=== PATIENT | female | born 1970 | race Caucasian/White ===

== ENCOUNTER 2020-09-25 07:08 | Outpatient (REF) | payer OTHER, SELFPAY ==
[2020-09-25 11:10] LABS: MANUAL DIFF FLAG NO
[2020-09-25 11:19] LABS: Basophils Percent Auto 0.2 % (0-2); Eosinophils Absolute Auto 0.3 X10*3/uL (0.0-0.4); Eosinophils Percent Auto 3.5 % (0-4); Hematocrit 38.3 % (37-47); Hemoglobin 12.8 g/dl (12.0-16.0); Imm Gran Abs Auto 0.03 X10*3/uL (0.00-0.03); Imm Gran Pct Auto 0.4 % (0.0-0.4); Lymphocytes Absolute Auto 1.6 X10*3/uL (1.2-4.9); Mean Corpuscular HGB Conc 33.4 g/dl (31.0-35.0); Mean Corpuscular Hemoglobin 29.1 pg (27.0-33.0); Monocytes Absolute Auto 0.7 X10*3/uL (0.1-1.2); Monocytes Percent Auto 8.7 % (2-11); Neutrophils Absolute Auto 5.7 X10*3/uL (2.0-8.3); Neutrophils Percent Auto 68.2 % (45-73); Platelet Count 310 X10*3/uL (160-400); Red Cell Distribution Width 12.7 % (11.0-16.0); White Blood Count 8.3 X10*3/uL (4.8-10.8)
[2020-09-25 12:04] LABS: Ferritin 11 ng/mL (10-250); TSH reflex Free T4 1.14 uIU/mL (0.32-4.0)
[2020-09-25 12:10] LABS: Alanine Aminotransferase 12 U/L (0-31); Albumin Level 4.2 g/dL (3.5-5.0); Alkaline Phosphatase 93 U/L (39-117); Anion Gap 12 (12-20); Aspartate Amino Transferase 16 U/L (5-31); Bilirubin Direct 0.2 mg/dL (0.0-0.5); Bilirubin Total 0.7 mg/dL (0.0-1.0); Blood Urea Nitrogen 19 mg/dL (9-16); Calcium 8.8 mg/dL (8.4-10.2); Carbon Dioxide 28 mmol/L (22-29); Chloride 101 mmol/L (96-108); Cholesterol 177 mg/dL; Estimated Glomerular Filt Rate > 60; Glucose Fasting 75 mg/dL (60-99); HDL Cholesterol 45 mg/dL; LDL Cholesterol Calculated 90 mg/dl; Potassium 4.4 mmol/L (3.3-5.1); Sodium 137 mmol/L (135-145); Total Protein 6.8 g/dL (6.5-8.0); Triglycerides 211 mg/dL
[2020-09-25 12:12] LABS: Vitamin B12 445 pg/mL (200-900)
== END 2020-09-25 07:09 | disposition home or self-care (01) ==
LOC: HO.HMGCLDS 07:08
PROVIDERS: PCP Internal Medicine; Visit Provider Internal Medicine
DX: Z00.01 Encounter for general adult medical examination with abnormal findings (principal); R00.2 Palpitations; R00.0 Tachycardia, unspecified; R71.8 Other abnormality of red blood cells; R20.2 Paresthesia of skin; K21.9 Gastro-esophageal reflux disease without esophagitis; J45.909 Unspecified asthma, uncomplicated; G44.89 Other headache syndrome
CPT/HCPCS: 36415; 80048; 80061; 80076; 82607; 82728; 84443; 85025

== ENCOUNTER → 2020-10-21 13:56 | Outpatient (REF) | payer OTHER, SELFPAY ==
--- NOTE | 2020-10-21 13:59 | ECG_ITS ---
Hook-up date: 2020-10-21 14:13:00 Duration: 42:44:00 Test Indications: PALPITATIONS Medications: [id number] QRS complexes 137 Ventricular ectopics which represent <1 % of total QRS comp. 138 Supraventricular ectopics which represent <1 % of total QRS comp. * Paced QRS complexs which represent % of total QRS comp. VENTRICULAR ECTOPY 135 Isolated 0 Bigeminal Cycles 1 Couplets 0 Runs 0 Beats in Runs * Beats LONGEST at * BPM at :: -- * Beats FASTEST at * BPM at :: -- SUPRAVENTRICULAR ECTOPY 124 Isolated 3 Couplets 1 Runs 8 Beats in Runs 8 Beats LONGEST at 100 BPM at 06:44:08 2020-10-22 8 Beats FASTEST at 100 BPM at 06:44:08 2020-10-22 HEART RATES 57 MIN at 06:08:31 2020-10-22 90 AVG 138 MAX at 07:23:12 2020-10-22 LONGEST RR 1.1680 secs at 05:32:15 2020-10-22 S-T LEVELS Channel 1 - 128 mm at 14:13:00 2020-10-21 - 128 mm at 14:13:00 2020-10-21 Channel 2 - 128 mm at 14:13:00 2020-10-21 - 128 mm at 14:13:00 2020-10-21 Channel 3 - 128 mm at 03:33:21 -- - 128 mm at 03:33:21 Underlying rhythm is sinus; Average ventricular rate 90/min; range 57-138/min; About 27% of the time, ventricular rate >100/min; Occasional PACs; Occasional PVCs with one couplet; Symptoms in patient diary including shortness of breath, palpitations, associated with sinus rhythm. Referred By: Rory Nagy Overread By: YONY ALDRICH
== END ==
LOC: HO.CARD 13:56
PROVIDERS: Visit Provider Internal Medicine
DX: R00.2 Palpitations (principal); R00.0 Tachycardia, unspecified
CPT/HCPCS: 93225; 93226

== ENCOUNTER → 2020-10-26 14:38 | Outpatient (BNVA) | payer OTHER, SELFPAY | PROVIDERS: PCP Internal Medicine; Visit Provider Internal Medicine ==

== ENCOUNTER 2020-11-05 16:20 | Outpatient (REF) | payer OTHER, SELFPAY ==
--- NOTE | ~2020-11-05 | MR_ITS ---
EXAMINATION: MR CERVICAL SPINE WITHOUT CONTRAST CLINICAL INFORMATION: 50-year-old with complaints of headache and neck pain of several years' duration. Evaluate for disc herniation, spinal stenosis. COMPARISON: None TECHNIQUE: MRI of the cervical spine was obtained using routine sequences without contrast. FINDINGS: Alignment: Trace anterolisthesis noted at C3-C4 and trace retrolisthesis at C4-C5. There is 2 mm of anterolisthesis at C7-T1. Lordotic curvature is maintained. Craniocervical Junction/C1-C2 Articulations:?Intact and aligned. 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 Otherwise grossly unremarkable. Vertebral Bodies: Mild chronic superior endplate compression deformity of the T3 vertebral body is noted. Remaining vertebral body heights are well maintained. Bone Marrow: 1 cm probable benign vertebral hemangioma within the T2 vertebral body. Otherwise, no significant marrow replacing process or bone marrow edema. C2-C3: Disc space height is well maintained. Small posterior disc osteophyte complex noted without significant canal or neural foraminal compromise. There is bgqw-[id number] facet arthropathy on the left. C3-C4: Disc space height is well maintained. Slight anterolisthesis noted with mild posterior disc osteophyte complex and slight flattening of the dural sac without cord impingement. There is moderate left-sided and mild right-sided facet arthrosis without significant canal or neural foraminal stenosis. C4-C5: Mild loss of disc space height is noted with mild anterior marginal spondylosis. Small central disc protrusion with mild flattening of the central dural sac without cord impingement. Bilateral uncovertebral spurring is noted with mild bilateral facet spurring, with [id number] right-sided and mild left-sided neural foraminal stenosis. C5-C6: Disc space height is well maintained. Tiny central disc protrusion noted. Minor bilateral facet spurring noted. No significant canal or neural foraminal stenosis. C6-C7: Disc space height is mildly narrowed with minor anterior marginal endplate spurring. Mild broad-based central disc herniation noted with flattening of the central dural sac without cord impingement or significant spinal canal stenosis. There is moderate left-sided and mild right-sided facet hypertrophic change without significant canal or neural foraminal stenosis. C7-T1: Mild loss of disc space height is noted with mild anterior marginal spondylosis and mild anterolisthesis with a small central disc protrusion and mild flattening of the central dural sac without cord impingement or significant spinal canal stenosis. There is mild bilateral uncovertebral spurring without significant neural foraminal stenosis. The cervical and visualized upper thoracic spinal cord is normal in morphology, caliber and signal intensity throughout. MR/MR cervical spine wo con IMPRESSION: 1. Lordotic curvature is maintained with mild multilevel subluxations, as detailed above. 2. There is mild multilevel spondylosis and mild degrees of multilevel disc space height loss with multilevel small central disc protrusions without spinal cord impingement or significant spinal canal stenosis. 3. Multilevel uncovertebral and facet arthrosis, as described above, with [id number]-[id number] right-sided neural foraminal stenosis at C4-C5. 4. Mild, healed, chronic superior endplate compression fracture deformity of T3.
== END 2020-11-05 16:21 | disposition home or self-care (01) ==
LOC: HO.MRI 16:20
PROVIDERS: Visit Provider Psychiatry & Neurology Neurology
DX: M50.90 Cervical disc disorder, unspecified, unspecified cervical region (principal)
CPT/HCPCS: 72141

== ENCOUNTER → 2020-12-08 13:55 | Outpatient (REF) | payer OTHER, SELFPAY ==
--- NOTE | 2020-12-08 13:58 | CA_ITS ---
Transthoracic Echocardiogram Patient (Last, First, Middle): Alexandra Fam, Gender: Female Date of : 1970 Age: 50 Procedure Date: 12/08/2020 Procedure Type: Transthoracic Echocardiogram Location: OP Height: 160.02 cm Weight: 67.59 kg BSA: 1.71 m2 Heart Rate: bpm BP: 104 / 66 mmHg Meat Cooler: Newton MD: Hai Ronquillo MD Symptoms: R00.2 - Palpitations Study Quality: Good ECG Rhythm: Sinus Conclusions: - The left ventricular systolic function is normal. The visually estimated ejection fraction is between 60-65%. - No obvious valvular pathology seen on this study. Findings Left Ventricle Normal left ventricular cavity size. There is normal left ventricular wall thickness. The left ventricular systolic function is normal. The visually estimated ejection fraction is between 60-65%. There is no evidence of regional wall motion abnormalities. Diastolic function is normal for age. Right Ventricle Normal right ventricular cavity size and systolic function. Atria The left atrium is normal in size. The right atrium is normal in size. Aortic Valve The aortic valve was not well visualized. The aortic valve structure and function is likely normal. There is no aortic valve stenosis. There is no aortic valve regurgitation. Mitral Valve The mitral valve appears normal. There is trace mitral valve regurgitation. There is no mitral valve stenosis. Pulmonic Valve The pulmonic valve was not well visualized. Tricuspid Valve There is trace tricuspid valve regurgitation. The pulmonary artery systolic pressure is normal. Great Vessels The aortic annulus, sinuses of valsalva, asc aorta, and aortic arch are normal in size. Venous The inferior vena cava is normal in size and collapses greater than 50% with inspiration. Pericardium/Pleural There is no evidence of pericardial effusion. Prior Study Comparison No prior study available for comparison. Recommendations, Care & Conclusions No obvious valvular pathology seen on this study. Measurements 2D Linear Measurements RVIDd: 2.01 RVIDd Index: 1.18 IVSd: 0.65 0.6-0.9/0.6-1.0 cm LVIDd: 4.11 3.9-5.3/4.2-5.9 cm LVIDd Index: 2.40 2.4-3.2/2.2-3.1 cm/m2 LVIDs: 2.51 2.0-3.6 cm LVPWd: 0.82 0.7-1.1 cm Ao Root: 2.60 2.1-3.5 cm LA Diam: 2.70 2.7-3.8/3.0-4.0 cm LAIDs Index: 1.58 1.5-2.3 cm/m2 LV Mass: 108.00 67-162/88-224 g LV Mass Index: 63.16 43-95/49-115 g/m2 LVOT Diam: 2.00 3.0+(-)1.3 cm 2D Systolic Function EF 4C: 74.40 >55% EF 2C: 70.90 >55% EF BiP: 72.10 >55% Mitral Valve MV Pk E: 0.73 MV PK A: 0.77 MV Decel Time: 201.00 E/A: 1.00 E'Lateral: 16.10 E'Medial: 7.64 E/E' Med: 9.50 E/E' Lat: 4.50 Aortic Valve AoV Pk Bryson: 1.75 AoV Mn Bryson: 1.32 AoV VTI: 0.29 AoV Pk Grad: 12.00 Aov Mn Grad: 8.00 PB Cont.VTI: 2.27 LVOT LVOT Pk Bryson: 1.45 LVOT Mn Bryson: 0.88 LVOT VTI: 0.21 LVOT Pk Grad: 8.00 LVOT Mn Grad: 4.00 LVOT Diam: 2.00 LVOT Area: 3.14 Diastolic Function MV Pk E: 0.73 MV Pk A: 0.77 E/A: 1.00 E'Medial: 7.64 E/E' Med: 9.50 E' Laterial: 16.10 E/E' Lat: 4.50 Tricuspid Valve TR Pk Bryson: 2.38 TR Pk Grad: 23.00 RA Press: 3.00 RVSP: 26.00 Great Vessels Aorta Ao Root-2D: 2.60 2.0-3.7 cm Ao Asc: 2.70 2.1-3.4 cm Ao Arch: 2.70 Updated in Other Vendor System with Status of Final Hai Ronquillo MD electronically signed on 12/10/2020 2:23:05 PM with status of Final
== END ==
LOC: HO.CARD 13:55
PROVIDERS: Visit Provider Internal Medicine
DX: R00.2 Palpitations (principal)
CPT/HCPCS: 93306

== ENCOUNTER → 2020-12-15 14:40 | Outpatient (BNVA) | payer OTHER, SELFPAY | PROVIDERS: PCP Internal Medicine; Referring Provider Internal Medicine; Visit Provider Internal Medicine ==

== ENCOUNTER → 2021-07-05 15:07 | Outpatient (BNVA) | payer OTHER, SELFPAY | PROVIDERS: PCP Internal Medicine; Referring Provider Internal Medicine; Visit Provider Internal Medicine ==

== ENCOUNTER 2021-10-14 12:16 | Outpatient (REF) | payer OTHER, SELFPAY | END 2021-10-14 12:17 | disposition home or self-care (01) | LOC: HO.LNP 12:16 | PROVIDERS: Visit Provider Nurse Practitioner Family | DX: R30.0 Dysuria (principal) | CPT/HCPCS: 87086 ==

== ENCOUNTER 2022-01-12 07:24 | Outpatient (REF) | payer OTHER, SELFPAY ==
[2022-01-12 11:43] LABS: MANUAL DIFF FLAG NO
[2022-01-12 11:52] LABS: Basophils Percent Auto 0.5 % (0-2); Eosinophils Absolute Auto 0.4 X10*3/uL (0.0-0.4); Eosinophils Percent Auto 4.7 % (0-4); Hematocrit 38.7 % (37.0-47.0); Imm Gran Abs Auto 0.05 X10*3/uL (0.00-0.03); Imm Gran Pct Auto 0.6 % (0.0-0.4); Lymphocytes Absolute Auto 1.4 X10*3/uL (1.2-4.9); Lymphocytes Percent Auto 17.5 % (20-40); Mean Corpuscular HGB Conc 33.6 g/dl (31.0-35.0); Mean Corpuscular Hemoglobin 29.6 pg (27.0-33.0); Mean Corpuscular Volume 88.2 fL (80.0-98.0); Mean Platelet Volume 9.7 fL (9.4-12.3); Monocytes Absolute Auto 0.7 X10*3/uL (0.1-1.2); Neutrophils Absolute Auto 5.6 x10*3/uL (2.0-8.3); Neutrophils Percent Auto 67.7 % (45-73); Platelet Count 321 X10*3/uL (160-400); Red Blood Count 4.39 X10*6/uL (4.20-5.50); Red Cell Distribution Width 12.7 % (11.0-16.0); White Blood Count 8.3 X10*3/uL (4.8-10.8)
[2022-01-12 12:02] LABS: Alanine Aminotransferase 25 U/L (0-31); Albumin Level 4.3 g/dL (3.5-5.0); Alkaline Phosphatase 114 U/L (39-117); Anion Gap 12 (12-20); Aspartate Amino Transferase 24 U/L (5-31); Bilirubin Total 0.2 mg/dL (0.0-1.0); Blood Urea Nitrogen 20 mg/dL (9-16); Calcium 9.1 mg/dL (8.4-10.2); Carbon Dioxide 24 mmol/L (22-29); Chloride 105 mmol/L (96-108); Cholesterol 188 mg/dL; Estimated Glomerular Filt Rate > 60; Glucose Fasting 92 mg/dL (60-99); HDL Cholesterol 44 mg/dL; LDL Cholesterol Calculated 93 mg/dl; Potassium 4.2 mmol/L (3.3-5.1); Sodium 137 mmol/L (135-145); Total Protein 6.9 g/dL (6.5-8.0); Triglycerides 256 mg/dL
[2022-01-12 12:25] LABS: TSH reflex Free T4 1.38 uIU/mL (0.32-4.0)
== END 2022-01-12 07:25 | disposition home or self-care (01) ==
LOC: HO.HMGCLDS 07:24
PROVIDERS: PCP Internal Medicine; Visit Provider Internal Medicine
DX: J45.50 Severe persistent asthma, uncomplicated (principal); K21.9 Gastro-esophageal reflux disease without esophagitis; F41.1 Generalized anxiety disorder
CPT/HCPCS: 36415; 80053; 80061; 84443; 85025

== ENCOUNTER 2022-11-04 07:11 | Outpatient (REF) | payer OTHER, SELFPAY ==
[2022-11-04 11:40] LABS: MANUAL DIFF FLAG NO
[2022-11-04 11:57] LABS: Basophils Percent Auto 0.3 % (0-2); Eosinophils Absolute Auto 0.4 X10*3/uL (0.0-0.4); Hematocrit 38.9 % (37.0-47.0); Hemoglobin 12.5 g/dl (12.0-16.0); Imm Gran Abs Auto 0.05 X10*3/uL (0.00-0.03); Imm Gran Pct Auto 0.5 % (0.0-0.4); Lymphocytes Absolute Auto 1.7 X10*3/uL (1.2-4.9); Lymphocytes Percent Auto 17.8 % (20-40); Mean Corpuscular HGB Conc 32.1 g/dl (31.0-35.0); Mean Corpuscular Hemoglobin 27.7 pg (27.0-33.0); Mean Corpuscular Volume 86.1 fL (80.0-98.0); Monocytes Absolute Auto 0.9 X10*3/uL (0.1-1.2); Monocytes Percent Auto 8.9 % (2-11); Neutrophils Absolute Auto 6.6 x10*3/uL (2.0-8.3); Neutrophils Percent Auto 68.5 % (45-73); Platelet Count 338 X10*3/uL (160-400); Red Blood Count 4.52 X10*6/uL (4.20-5.50); White Blood Count 9.7 X10*3/uL (4.8-10.8)
[2022-11-04 12:34] LABS: Alanine Aminotransferase 19 U/L (0-31); Albumin Level 4.2 g/dL (3.5-5.0); Alkaline Phosphatase 115 U/L (39-117); Anion Gap 10 (12-20); Aspartate Amino Transferase 23 U/L (5-31); Bilirubin Total 0.4 mg/dL (0.0-1.0); Blood Urea Nitrogen 14 mg/dL (9-16); Calcium 8.8 mg/dL (8.4-10.2); Carbon Dioxide 26 mmol/L (22-29); Chloride 105 mmol/L (96-108); Cholesterol 175 mg/dL; Estimated Glomerular Filt Rate > 60; Glucose Fasting 79 mg/dL (60-99); HDL Cholesterol 41 mg/dL; LDL Cholesterol Calculated 66 mg/dl; Potassium 4.2 mmol/L (3.3-5.1); Sodium 137 mmol/L (135-145); Total Protein 6.7 g/dL (6.5-8.0); Triglycerides 344 mg/dL
== END 2022-11-04 07:12 | disposition home or self-care (01) ==
LOC: HO.HMGCLDS 07:11
PROVIDERS: PCP Internal Medicine; Visit Provider Internal Medicine
DX: Z00.01 Encounter for general adult medical examination with abnormal findings (principal); F41.1 Generalized anxiety disorder; G44.89 Other headache syndrome; J45.40 Moderate persistent asthma, uncomplicated; K21.9 Gastro-esophageal reflux disease without esophagitis; E75.6 Lipid storage disorder, unspecified
CPT/HCPCS: 36415; 80053; 80061; 84443; 85025

== ENCOUNTER 2023-03-29 15:25 | Outpatient (AMB) | payer OTHER, SELFPAY ==
[2023-03-29 15:30] VITALS: BP 118/70; PULSE 78; O2SAT 98; BMI 28.2
--- NOTE | 2023-03-29 15:30 | MHC.PC.OV ---
Vital Signs 03/29/23 15:30 Height 5 ft 3 in Weight 159 lb 6 oz BMI 28.2 BP 118/70 Blood Pressure Location Rt brachial Position Sitting Pulse 78 Pulse Source Pulse Oximeter Pulse Oximetry (%) 98 Oxygen Delivery Method Room Air Intake Visit Reasons: 6m follow up Allergies cephalexin Adverse Reaction (Mild, Verified 03/29/23 15:30) Hives Medication List - Last Reconciled 03/29/23 by Rory Nagy MD albuterol sulfate 90 mcg/actuation 2 puffs PO Q4H PRN 90 days amitriptyline 50 mg PO BEDTIME ascorbic acid (vitamin C) PO DAILY clotrimazole-betamethasone 1-0.05 % 1 appl topical BID 30 days fluoxetine 40 mg (2 x 20 mg) PO DAILY 90 days fluticasone propion-salmeterol 250-50 mcg/dose (Wixela Inhub) 1 ea PO BID omeprazole 20 mg PO DAILY 90 days topiramate 50 mg PO BEDTIME Tobacco use date assessed: 03/29/23 Dental Screening Dental Screen Date: 03/29/23 Did you have a dental visit in the last 12 months?: No Did you have a dental problem in the last 6 months where you did not have access to dental care?: No Was dental information given to patient?: No HPI 6m follow up HPI Details Patient is a 52-year-old female came in today for her six-month follow-up appointment Patient says that her asthma is acting up she is requesting albuterol for updraft machine which I have sent she is taking maintenance inhaler regularly. Her reflux is also getting worse patient says that she tried to get off all her medications and did not do very well Even though she is on omeprazole she still feels acid come up. I feel that her asthma could be because of uncontrolled GERD I have placed a referral for her to be evaluated by Gastroenterology. She tried to stop fluoxetine Topamax and amitriptyline 1 x 1 and then her itching both arms came back. Which is more so due to anxiety. She has restarted the amitriptyline and Topamax her headaches are stable Fluoxetine 20 mg started as well her itching is gradually getting better. Patient will return in 3 months for follow-up appointment [facility] Surgical History History of bunionectomy History of section History of tonsillectomy Family History Father Colon cancer Mother Lung cancer Brother No problems noted. Brother No problems noted. Son No problems noted. Daughter No problems noted. Daughter No problems noted. Daughter No problems noted. Other Mental health disorder Substance use disorder Social History Housing: House Alcohol intake: current Alcohol intake frequency: a few times a month Patient Tobacco Use Status: Never used Tobacco e-Cigarette/Vaping Use: Never Used Current occupational status: employed Cognitive needs: No Hearing needs: No Vision needs: Yes Questionnaire PHQ-9 Over the last 2 weeks, how often have you been bothered by any of the following problems? 1. Little interest or pleasure in doing things: several days 2. Feeling down, depressed, or hopeless: not at all 3. Trouble falling or staying asleep, or sleeping too much: several days 4. Feeling tired or having little energy: several days 5. Poor appetite or overeating: more than half the days 6. Feeling bad about yourself - or that you are a failure or have let yourself or your family down: more than half the days 7. Trouble concentrating on things, such as reading the newspaper or watching television: not at all 8. Moving or speaking so slowly that other people could have noticed. Or the opposite - being so fidgety or restless that you have been moving around a lot more than usual: not at all 9. Thoughts that you would be better off or of hurting yourself in some way: not at all Total score: 7 Depression Screening Interpretation: Negative 17387 - PHQ-9 Billing: Yes Source: Developed by Drs. Roberto Dennis, India Bhatt, Vikash Hoffman and colleagues, with an educational aleja from [employer]. Thrive Questionnaire Date Thrive assessed: 01/19/22 AUDIT C Alcohol Use Questionnaire (AUDIT-C) 1. How often do you have a drink containing alcohol?: Monthly or less 2. How many drinks containing alcohol do you have on a typical day when you are drinking?: 1 or 2 3. How often do you have six or more drinks on one occasion?: Never Total Score: 1 Score Reviewed/Action Taken: Yes LESLY-7 AMB Questionnaire LESLY-7 Date LESLY - 7 assessed: 07/14/21 Source: Developed by Drs. Roberto Dennis, India Bhatt, Vikash Hoffman and colleagues, with an educational aleja from [employer]. Review of Systems Const Denies chills and Denies fever(s) ENT Denies epistaxis and Denies nasal discharge Card Denies chest pain Resp Denies hemoptysis GI Denies diarrhea and Denies nausea Skin/Breast Denies rash Neuro Reports no additional complaints Psych Reports no additional complaints Endo Reports no additional complaints Physical exam (Primary Care) Vital Signs: Last Vital Signs Pulse 78 03/29/23 15:30 BP 118/70 03/29/23 15:30 Pulse Ox 98 03/29/23 15:30 Oxygen Delivery Method Room Air 03/29/23 15:30 BMI result Body Mass Index 28.2 Tobacco/Smoking Status: Tobacco use Status Tobacco use date assessed 03/29/23 03/29/23 15:32 Patient Tobacco Use Status Never used Tobacco 03/29/23 15:32 e-Cigarette/Vaping Use Never Used 03/29/23 15:32 Depression Screening Interpretation: Negative Thrive Assessment: Date of Thrive Assessment Date Thrive assessed 01/19/22 03/29/23 15:32 Const General: cooperative, comfortable and no acute distress Orientation/consciousness: patient oriented x3 HENMT Head: Yes normocephalic Eyes General: appearance normal, both eyes and all related structures Neck Neck: Yes supple Resp Effort & Inspection: normal respiratory effort, no cough and no stridor Cardio Rhythm: regular rhythm Heart sounds: S1 normal heart sound present and S2 normal heart sound present Skin General skin exam: turgor normal Neuro General: patient oriented x3, tone normal and moves all extremities Extrem Right lower extremity: no edema Left lower extremity: no edema Assessment and Plan Assessment & Plan (1) Asthma, moderate persistent: Code(s): J45.40 - Moderate persistent asthma, uncomplicated Qualifiers: Asthma complication type: with status asthmaticus Qualified Code(s): J45.42 - Moderate persistent asthma with status asthmaticus (2) Chronic GERD: Code(s): K21.9 - Gastro-esophageal reflux disease without esophagitis (3) Headache syndrome: Code(s): G44.89 - Other headache syndrome (4) Anxiety, generalized: Code(s): F41.1 - Generalized anxiety disorder (5) Itching: Code(s): L29.9 - Pruritus, unspecified Plan Patient is a 52-year-old female came in today for her six-month follow-up appointment Patient says that her asthma is acting up she is requesting albuterol for updraft machine which I have sent she is taking maintenance inhaler regularly. Her reflux is also getting worse patient says that she tried to get off all her medications and did not do very well Even though she is on omeprazole she still feels acid come up. I feel that her asthma could be because of uncontrolled GERD I have placed a referral for her to be evaluated by Gastroenterology. She tried to stop fluoxetine Topamax and amitriptyline 1 x 1 and then her itching both arms came back. Which is more so due to anxiety. She has restarted the amitriptyline and Topamax her headaches are stable Fluoxetine 20 mg started as well her itching is gradually getting better. Patient will return in 3 months for follow-up appointment Orders: Referrals Gastroenterology Referral K21.9 - Gastro-esophageal reflux disease without esophagitis Medications: New albuterol sulfate 0.63 mg (3 mL) inhalation QID PRN 90 mL 0RF shortness of breath or wheezing Coding Level of Care Code Est Pt Level 4 (18952) Diagnoses Asthma, moderate persistent J45.42 Asthma complication type: with status asthmaticus Chronic GERD K21.9 Headache syndrome G44.89 Anxiety, generalized F41.1 Itching L29.9
== END 2023-03-29 15:53 | disposition home or self-care (01) ==
PROVIDERS: Visit Provider Internal Medicine
DX: J45.42 Moderate persistent asthma with status asthmaticus (principal); K21.9 Gastro-esophageal reflux disease without esophagitis; G44.89 Other headache syndrome; F41.1 Generalized anxiety disorder; L29.9 Pruritus, unspecified
CPT/HCPCS: 99214

== ENCOUNTER 2023-04-11 12:21 | Outpatient (AMB) | payer OTHER, SELFPAY ==
[2023-04-11 12:26] VITALS: BP 112/70; PULSE 93; O2SAT 97; BMI 28.0
--- NOTE | 2023-04-11 12:26 | MHC.PC.OV ---
Vital Signs 04/11/23 12:26 Height 5 ft 3 in Weight 158 lb 4 oz BMI 28.0 BP 112/70 Blood Pressure Location Rt brachial Position Sitting Pulse 93 Pulse Source Pulse Oximeter Pulse Oximetry (%) 97 Oxygen Delivery Method Room Air Intake Visit Reasons: Possible UTI? Allergies cephalexin Adverse Reaction (Mild, Verified 04/11/23 12:26) Hives Medication List - Last Reconciled 04/11/23 by Rory Nagy MD albuterol sulfate 0.63 mg (3 mL) inhalation QID PRN albuterol sulfate 90 mcg/actuation 2 puffs PO Q4H PRN 90 days amitriptyline 50 mg PO BEDTIME ascorbic acid (vitamin C) PO DAILY clotrimazole-betamethasone 1-0.05 % 1 appl topical BID 30 days fluoxetine 40 mg (2 x 20 mg) PO DAILY 90 days fluticasone propion-salmeterol 250-50 mcg/dose (Wixela Inhub) 1 ea PO BID omeprazole 20 mg PO DAILY 90 days topiramate 50 mg PO BEDTIME Tobacco use date assessed: 04/11/23 Dental Screening Dental Screen Date: 04/11/23 Did you have a dental visit in the last 12 months?: No Did you have a dental problem in the last 6 months where you did not have access to dental care?: No Was dental information given to patient?: No HPI Possible UTI? HPI Details Patient is a 53-year-old female came in today to be evaluated for urinary tract infection Patient says that the symptoms started after sexual intercourse 2 days ago She says that it bones every time she urinate. On urinalysis today I do not see signs of infection We talked about urethritis could be the possibility of burning sensation that she is feeling However I have sent Macrobid for her patient is to drink plenty of water We also talked about emptying the bladder before and after the intercourse and using water to clean herself after. [facility] Surgical History History of bunionectomy History of section History of tonsillectomy Family History Father Colon cancer Mother Lung cancer Brother No problems noted. Brother No problems noted. Son No problems noted. Daughter No problems noted. Daughter No problems noted. Daughter No problems noted. Other Mental health disorder Substance use disorder Social History Housing: House Alcohol intake: current Alcohol intake frequency: a few times a month Patient Tobacco Use Status: Never used Tobacco e-Cigarette/Vaping Use: Never Used Current occupational status: employed Cognitive needs: No Hearing needs: No Vision needs: Yes Questionnaire PHQ-9 Over the last 2 weeks, how often have you been bothered by any of the following problems? 1. Little interest or pleasure in doing things: several days 2. Feeling down, depressed, or hopeless: not at all 3. Trouble falling or staying asleep, or sleeping too much: several days 4. Feeling tired or having little energy: several days 5. Poor appetite or overeating: more than half the days 6. Feeling bad about yourself - or that you are a failure or have let yourself or your family down: more than half the days 7. Trouble concentrating on things, such as reading the newspaper or watching television: not at all 8. Moving or speaking so slowly that other people could have noticed. Or the opposite - being so fidgety or restless that you have been moving around a lot more than usual: not at all 9. Thoughts that you would be better off or of hurting yourself in some way: not at all Total score: 7 Depression Screening Interpretation: Negative 44278 - PHQ-9 Billing: Yes Source: Developed by Drs. Roberto Dennis, Vikash Lerma and colleagues, with an educational aleja from [employer]. Thrive Questionnaire Date Thrive assessed: 01/19/22 AUDIT C Alcohol Use Questionnaire (AUDIT-C) 1. How often do you have a drink containing alcohol?: Monthly or less 2. How many drinks containing alcohol do you have on a typical day when you are drinking?: 1 or 2 3. How often do you have six or more drinks on one occasion?: Never Total Score: 1 Score Reviewed/Action Taken: Yes LESLY-7 AMB Questionnaire LESLY-7 Date LESLY - 7 assessed: 07/14/21 Source: Developed by Drs. Roebrto Dennis, Vikash Lerma and colleagues, with an educational aleja from [employer]. Review of Systems Const All systems reviewed & are unremarkable except as noted in HPI and below Physical exam (Primary Care) Vital Signs: Last Vital Signs Pulse 93 04/11/23 12:26 BP 112/70 04/11/23 12:26 Pulse Ox 97 04/11/23 12:26 Oxygen Delivery Method Room Air 04/11/23 12:26 BMI result Body Mass Index 28.0 Tobacco/Smoking Status: Tobacco use Status Tobacco use date assessed 04/11/23 04/11/23 12:29 Patient Tobacco Use Status Never used Tobacco 04/11/23 12:29 e-Cigarette/Vaping Use Never Used 04/11/23 12:29 Depression Screening Interpretation: Negative Thrive Assessment: Date of Thrive Assessment Date Thrive assessed 01/19/22 04/11/23 12:29 Const General: no acute distress HENMT Ears: mastoids normal General nose exam: Normal external nose present Throat: Yes posterior oropharynx abnormal Neck Neck: Yes no lymphadenopathy Resp Effort & Inspection: normal respiratory effort Auscultation: clear to auscultation bilaterally Psych Mental Status: mental status grossly normal Results AMB Urinalysis, Automated UA Leukoctes 0 Dulce/uL Last Edit by Larissa Zarate CMA on 04/11/23 12:39 UA Nitrite Negative Last Edit by Larissa Zarate CMA on 04/11/23 12:39 UA Urobilinogen 0.2 mg/dL Last Edit by Larissa Zarate CMA on 04/11/23 12:39 UA Protein 0 mg/dL Last Edit by Larissa Zarate CMA on 04/11/23 12:39 UA pH 6.0 Last Edit by Larissa Zarate CMA on 04/11/23 12:39 UA Blood 0 Drew/uL Last Edit by Larissa Zarate CMA on 04/11/23 12:39 UA Specific [place] 1.015 Last Edit by Larissa Zarate CMA on 04/11/23 12:39 UA Ketone Negative Last Edit by Larissa Zarate CMA on 04/11/23 12:39 UA Bilirubin 0 mg/dL Last Edit by Larissa Zarate CMA on 04/11/23 12:39 UA Glucose 0 mg/dL Last Edit by Larissa Zarate CMA on 04/11/23 12:39 Results Reviewed Results Reviewed: Laboratory Last Values Urine pH (Auto) 6.0 04/11/23 12:38 Specific [place] (Auto) 1.015 04/11/23 12:38 Urine Protein (Auto) 0 mg/dL 04/11/23 12:38 Glucose (UA)(Auto) 0 mg/dL 04/11/23 12:38 Urine Ketones (Auto) Negative 04/11/23 12:38 Urine Blood (Auto) 0 Drew/uL 04/11/23 12:38 Urine Nitrite (Auto) Negative 04/11/23 12:38 Urine Bilirubin (Auto) 0 mg/dL 04/11/23 12:38 Urine Urobilinogen (Auto) 0.2 mg/dL 04/11/23 12:38 Leukocyte Esterase (Auto) 0 Dulce/uL 04/11/23 12:38 Assessment and Plan Assessment & Plan (1) Dysuria: Code(s): R30.0 - Dysuria (2) Frequency of urination: Code(s): R35.0 - Frequency of micturition Plan Patient is a 53-year-old female came in today to be evaluated for urinary tract infection Patient says that the symptoms started after sexual intercourse 2 days ago She says that it bones every time she urinate. On urinalysis today I do not see signs of infection We talked about urethritis could be the possibility of burning sensation that she is feeling However I have sent Macrobid for her patient is to drink plenty of water We also talked about emptying the bladder before and after the intercourse and using water to clean herself after. Orders: Orders AMB Urinalysis Automated Today Z13.9 - Encounter for screening, unspecified Medications: New nitrofurantoin monohyd/m-cryst 100 mg (Macrobid) must administer with a meal/food 100 mg PO Q12H 10 caps 0RF 5 days Coding Level of Care Code Est Pt Level 3 (10621) Diagnoses Dysuria R30.0 Frequency of urination R35.0
== END 2023-04-11 12:57 | disposition home or self-care (01) ==
PROVIDERS: PCP Internal Medicine; Visit Provider Internal Medicine
DX: R30.0 Dysuria (principal); R35.0 Frequency of micturition
CPT/HCPCS: 81003; 99213

== ENCOUNTER 2023-06-02 14:46 | Outpatient (AMB) | payer OTHER, SELFPAY ==
--- NOTE | 2023-06-02 14:48 | A.OFFVIS_ITS ---
Intake Vital Signs 3 06/02/23 14:53 Height 5 ft 3 in Weight 156 lb 15.506 oz BMI 27.8 BP 134/76 Blood Pressure Location Lt brachial Position Sitting Pulse 93 Intake Visit Reasons: esophageal reflux disease without esophagitis Intake Note: Patient presents to in office visit today as a new patient for GERD. CC:Patient c/o trouble breathing she believes are associated to acid reflux, and constipation. Denies other GI symptom today. 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 Accompanied by: Self / Same As Patient Allergies cephalexin Adverse Reaction (Mild, Verified 04/11/23 12:26) Hives Medication List - Last Reconciled 06/02/23 by ALLEN Rondon albuterol sulfate 0.63 mg (3 mL) inhalation QID PRN albuterol sulfate 90 mcg/actuation 2 puffs PO Q4H PRN 90 days [align PO DAILY] amitriptyline 50 mg PO BEDTIME ascorbic acid (vitamin C) 1 tab PO DAILY fluoxetine 20 mg PO DAILY fluticasone propion-salmeterol 250-50 mcg/dose (Wixela Inhub) 1 ea PO BID omeprazole 20 mg PO DAILY 90 days polyethylene glycol 3350 (Miralax) 17 grams PO DAILY simethicone (Gas Relief (simethicone)) 180 mg PO BID PRN topiramate 50 mg PO BEDTIME HPI esophageal reflux disease without esophagitis 2 HPI0 Details 53-year-old female here for initial eval uation of GERD. She is referred by Rory Nagy the of [facility] [place] primary care. PMX Asthma Eczema Palpitations/tachycardia Anxiety Paresthesias GERD * SURGICAL HISTORY Bunionectomy Tonsillectomy section Abdominoplasty * ALLERGIES Cephalexin * [employer] LABS: Laboratory Tests 11/04/22 07:13 WBC 9.7 Hgb 12.5 Hct 38.9 Plt Count 338 Estimated GFR > 60 Total Bilirubin 0.4 AST 23 ALT 19 Alkaline Phosphata se 115 TSH 1.60 TODAY'S VISIT She has had HB for a couple of years. Now she has been having acid brash that comes up in my mouth. She feels that her HB is well controlled on her current omeprazole 20mg, but if she misses a dose. BUT the acid brash happens a lot when she is moving around, she does not know if this worsens at night because she sleeps setting up on 4 pillows. She fears laying down because she feels pressure going up my chest. She also will have the regurg when she bends forward. No testing performed for this so far. There was some concern that her respiratory issues may be related to GERD. She has a lot of CIC and has been taking Align and fiber supplements. She also uses a gas pill. BUT she was under the impression that the Align was a stool softener and a digestive aid....but she shows me the box and it is just a probiotic supplement. THEN she remembers that she has been using Miralax as well. No similar problems in her family. She has been gaining weight recently. She used to be 110 but now is 156 since age 45. NO dysphagia. Discomfort in the epigastrum. Her mother had her GB out. No nausea. Again EGD along with an ultrasound a barium swallow see if there is any pathophysiologic abnormalities at play here. However she has gained over 40 lb in the last 8 years or so and this along with genetics may be contributing to her problem. There are no prior problems with anesthesia or sedation. Her asthma is a work in progress and she denies any cardiac problems. There are no infectious disease problems. ROV 8 weeks. [facility] Surgical History History of bunionectomy History of section History of tonsillectomy Family History Father Colon cancer Mother Lung cancer Brother No problems noted. Brother No problems noted. Son No problems noted. Daughter No problems noted. Daughter No problems noted. Daughter No problems noted. Other Mental health disorder Substance use disorder Social History Housing: House Alcohol intake: current Alcohol intake frequency: a few times a month Patient Tobacco Use Status: Never used Tobacco e-Cigarette/Vaping Use: Never Used Current occupational status: employed Cognitive needs: No Hearing needs: No Vision needs: Yes Review of Systems Const Denies fatigue, Denies fever(s), Denies night sweats, Denies poor appetite, Reports weight gain and Denies weight loss ENT Reports Normal hearing present, Denies dental pain, Denies dysphagia, Denies hearing loss, Denies mouth pain, Denies odynophagia, Denies throat swelling, Denies tongue swelling and Reports other (Dentition adequate) Card Reports chest pain and Reports dyspnea Resp Reports dyspnea and Reports wheezing GI Details: Spontaneous acid brash or Denies abdominal pain, Denies melena, Reports bloating, Denies hematochezia, Reports constipation, Denies GI cramping, Denies dysphagia, Denies excessive flatus, Denies early satiety, Reports heartburn, Denies diarrhea, Denies nausea, Denies odynophagia, Denies vomiting and Denies hematemesis Skin/Breast Denies pruritus, Denies lesions, Denies rash and Denies jaundice Neuro Reports Normal hearing present, Denies Abnormal speech present and Reports paresthesias (In hands/fingers overnight with) Endo Denies fatigue Aller/Immun Denies throat swelling, Denies tongue swelling and Reports wheezing Physical Exam Vital Signs: BMI result Body Mass Index 27.8 Const General: cooperative, no acute distress, well developed and well groomed Nutritional Appearance: average body habitus and well nourished Orientation/consciousness: oriented to person, oriented to place and oriented to time Limitations: No language barrier HEENT Head: Yes normocephalic and Yes atraumatic Eyes General: appearance normal, both eyes and all related structures Pupils: Equal, round and reactive pupils present Neck Neck: Yes normal visual inspection and Yes no lymphadenopathy Thyroid: Thyroid normal Resp Effort & Inspection: normal respiratory effort and able to speak in complete sentences Auscultation: clear to auscultation bilaterally Cardio Rate: regular rate Rhythm: regular rhythm Heart sounds: Normal, physiologic split S2 sound present Peripheral pulses: radial pulses present and posterior tibial pulses present GI Inspection: No distended and No Abdominal panniculus present Palpation (GI): Soft to palpation, nontender, no guarding, not rigid and No hepatosplenomegaly present Percussion: Yes normal to percussion Auscultation: normal bowel sounds Rectal Exam - Female: deferred Abdomen image: 2 1. abdominoplasty scar 2. c sections Skin General skin exam: no rashes or lesions noted, turgor normal, skin not dry, no jaundice, No spider nevi and no striae Rashes: no rashes Nails: normal Neuro General: oriented to person, oriented to place and oriented to time Cranial nerves: Yes Equal, round and reactive pupils present and Yes Normal hearing present Speech: No Abnormal speech present Extrem General: Yes normal to inspection, No clubbing, No cyanosis and No edema Psych Appearance: grossly normal and well kempt Mental Status: mental status grossly normal Speech and movement: Normal speech and movement present Affect: normal affect Attitude: cooperative Thought process: Normal thought process present and not confabulating Thought content: Normal thought content present Insight: Limited insight present (Psych) Judgement: Limited judgement present (Psych) Assessment & Plan Assessment & Plan (1) Chronic GERD: Code(s): K21.9 - Gastro-esophageal reflux disease without esophagitis Plan: She has had HB for a couple of years. Now she has been having acid brash that comes up in my mouth. She feels that her HB is well controlled on her current omeprazole 20mg, but if she misses a dose. BUT the acid brash happens a lot when she is moving around, she does not know if this worsens at night because she sleeps setting up on 4 pillows. She fears laying down because she feels pressure going up my chest. She also will have the regurg when she bends forward. No testing performed for this so far. There was some concern that her respiratory issues may be related to GERD. She has a lot of CIC and has been taking Align and fiber supplements. She also uses a gas pill. BUT she was under the impression that the Align was a stool softener and a digestive aid....but she shows me the box and it is just a probiotic supplement. THEN she remembers that she has been using Miralax as well. No similar problems in her family. She has been gaining weight recently. She used to be 110 but now is 156 since age 45. NO dysphagia. Discomfort in the epigastrum. Her mother had her GB out. No nausea. Again EGD along with an ultrasound a barium swallow see if there is any pathophysiologic abnormalities at play here. However she has gained over 40 lb in the last 8 years or so and this along with genetics may be contributing to her problem. There are no prior problems with anesthesia or sedation. Her asthma is a work in progress and she denies any cardiac problems. There are no infectious disease problems. ROV 8 weeks. (2) H/O colonoscopy: Code(s): Z98.890 - Other specified postprocedural states Orders: Orders 2 FL barium swallow Today K21.9 - Gastro-esophageal reflux disease without esophagitis EGD with Mitchell - GI Use Only Today K21.9 - Gastro-esophageal reflux disease without esophagitis US abdomen complete Today K21.9 - Gastro-esophageal reflux disease without esophagitis Coding Level of Care Code New Pt Level 3 (63904) Diagnoses Chronic GERD K21.9 H/O colonoscopy Z98.890
[2023-06-02 14:53] VITALS: BP 134/76; PULSE 93; BMI 27.8
== END 2023-06-02 15:28 | disposition home or self-care (01) ==
PROVIDERS: PCP Internal Medicine; Visit Provider Nurse Practitioner
DX: K21.9 Gastro-esophageal reflux disease without esophagitis (principal); Z98.890 Other specified postprocedural states
CPT/HCPCS: 99203

== ENCOUNTER → 2023-06-02 14:46 | Outpatient (BNVA) | payer OTHER, SELFPAY | PROVIDERS: PCP Internal Medicine; Visit Provider Nurse Practitioner ==

== ENCOUNTER 2023-06-28 14:06 | Outpatient (AMB) | payer OTHER, SELFPAY ==
--- NOTE | 2023-06-28 14:07 | MHC.PC.OV ---
Vital Signs 06/28/23 14:11 Height 5 ft 3 in Weight 162 lb 8 oz BMI 28.8 BP 130/64 Blood Pressure Location Rt brachial Position Sitting Pulse 101 H Pulse Source Pulse Oximeter Pulse Oximetry (%) 98 Oxygen Delivery Method Room Air Intake Visit Reasons: 3m follow up Allergies cephalexin Adverse Reaction (Mild, Verified 06/28/23 14:07) Hives Medication List - Last Reconciled 06/28/23 by Rory Nagy MD albuterol sulfate 0.63 mg (3 mL) inhalation QID PRN albuterol sulfate 90 mcg/actuation 2 puffs PO Q4H PRN 90 days [align PO DAILY] amitriptyline 50 mg PO BEDTIME ascorbic acid (vitamin C) 1 tab PO DAILY fluoxetine 20 mg PO DAILY fluticasone propion-salmeterol 250-50 mcg/dose (Wixela Inhub) 1 ea PO BID omeprazole 20 mg PO DAILY 90 days polyethylene glycol 3350 (Miralax) 17 grams PO DAILY simethicone (Gas Relief (simethicone)) 180 mg PO BID PRN topiramate 50 mg PO BEDTIME Tobacco use date assessed: 06/28/23 Dental Screening Dental Screen Date: 06/28/23 Did you have a dental visit in the last 12 months?: Yes Did you have a dental problem in the last 6 months where you did not have access to dental care?: No Was dental information given to patient?: Patient has dentist HPI 3m follow up HPI Details It is a 53-year-old female came in today for her regular follow-up appointment Anxiety is stable, patient is taking fluoxetine regularly 20 mg Her anxiety sometimes present as itching, patient has tried to stop fluoxetine but then her itching got worse She also take Topamax 50 mg along with amitriptyline 50 mg at bedtime For headache prevention and it also helps her sleep. Patient has seen gastroenterology and she is scheduled to have EGD As her GERD symptoms were not responding to medication Patient have appointment for physical exam in October Surgical History History of bunionectomy History of tonsillectomy History of section Family History Father Colon cancer Mother Lung cancer Brother No problems noted. Brother No problems noted. Son No problems noted. Daughter No problems noted. Daughter No problems noted. Daughter No problems noted. Other Mental health disorder Substance use disorder Housing: House Alcohol intake: current Alcohol intake frequency: a few times a month Patient Tobacco Use Status: Never used Tobacco e-Cigarette/Vaping Use: Never Used Current occupational status: employed Cognitive needs: No Hearing needs: No Vision needs: Yes Questionnaire Thrive Questionnaire Date Thrive assessed: 01/19/22 AUDIT C Alcohol Use Questionnaire (AUDIT-C) 1. How often do you have a drink containing alcohol?: Monthly or less 2. How many drinks containing alcohol do you have on a typical day when you are drinking?: 1 or 2 3. How often do you have six or more drinks on one occasion?: Never Total Score: 1 Score Reviewed/Action Taken: Yes LESLY-7 AMB Questionnaire LESLY-7 Date LESLY - 7 assessed: 07/14/21 Source: Developed by Drs. Roberto Dennis, India Bhatt, Vikash Hoffman and colleagues, with an educational aleja from [employer]. Review of Systems Const Denies chills and Denies fever(s) ENT Denies epistaxis and Denies nasal discharge Card Denies chest pain Resp Denies chest congestion, Denies cough and Denies hemoptysis GI Denies diarrhea Skin/Breast Denies rash Neuro Reports no additional complaints Psych Reports no additional complaints Endo Reports no additional complaints Physical exam (Primary Care) Vital Signs: Last Vital Signs Pulse 101 H 06/28/23 14:11 BP 130/64 06/28/23 14:11 Pulse Ox 98 06/28/23 14:11 Oxygen Delivery Method Room Air 06/28/23 14:11 BMI result Body Mass Index 28.8 Tobacco/Smoking Status: Tobacco use Status Tobacco use date assessed 06/28/23 06/28/23 14:09 Patient Tobacco Use Status Never used Tobacco 06/28/23 14:09 e-Cigarette/Vaping Use Never Used 06/28/23 14:09 Thrive Assessment: Date of Thrive Assessment Date Thrive assessed 01/19/22 06/28/23 14:09 Const General: cooperative, comfortable and no acute distress Orientation/consciousness: patient oriented x3 HENMT Head: Yes normocephalic Eyes General: appearance normal, both eyes and all related structures Neck Neck: Yes supple Resp Effort & Inspection: normal respiratory effort, no cough and no stridor Cardio Rhythm: regular rhythm Heart sounds: S1 normal heart sound present and S2 normal heart sound present Skin General skin exam: turgor normal Neuro General: patient oriented x3, tone normal and moves all extremities Extrem Right lower extremity: no edema Left lower extremity: no edema Assessment and Plan Assessment & Plan (1) Asthma, moderate persistent: Code(s): J45.40 - Moderate persistent asthma, uncomplicated Qualifiers: Asthma complication type: with status asthmaticus Qualified Code(s): J45.42 - Moderate persistent asthma with status asthmaticus (2) Chronic GERD: Code(s): K21.9 - Gastro-esophageal reflux disease without esophagitis (3) Mood disorder: Code(s): F39 - Unspecified mood [affective] disorder (4) Headache syndrome: Code(s): G44.89 - Other headache syndrome (5) Anxiety, generalized: Code(s): F41.1 - Generalized anxiety disorder (6) Itching: Code(s): L29.9 - Pruritus, unspecified Plan It is a 53-year-old female came in today for her regular follow-up appointment Anxiety is stable, patient is taking fluoxetine regularly 20 mg Her anxiety sometimes present as itching, patient has tried to stop fluoxetine but then her itching got worse She also take Topamax 50 mg along with amitriptyline 50 mg at bedtime For headache prevention and it also helps her sleep. Patient has seen gastroenterology and she is scheduled to have EGD As her GERD symptoms were not responding to medication Patient have appointment for physical exam in October Medications: New fluoxetine 20 mg PO DAILY 90 caps 0RF Refilled topiramate 50 mg PO BEDTIME 90 tabs 1RF fluticasone propion-salmeterol 250-50 mcg/dose (Wixela Inhub) 1 ea PO BID 180 caps 3RF amitriptyline 50 mg PO BEDTIME 90 tabs 0RF albuterol sulfate 90 mcg/actuation 2 puffs PO Q4H PRN 25.5 grams 2RF bronchospasm 90 days albuterol sulfate 0.63 mg (3 mL) inhalation QID PRN 90 mL 0RF shortness of breath or wheezing Coding Level of Care Code Est Pt Level 4 (39476) Diagnoses Moderate persistent asthma with status asthmaticus J45.42 Asthma complication type: with status asthmaticus Chronic GERD K21.9 Mood disorder F39 Headache syndrome G44.89 Anxiety, generalized F41.1 Itching L29.9
[2023-06-28 14:11] VITALS: BP 130/64; PULSE 101; O2SAT 98; BMI 28.8
== END 2023-06-28 15:07 | disposition home or self-care (01) ==
PROVIDERS: PCP Internal Medicine; Visit Provider Internal Medicine
DX: J45.42 Moderate persistent asthma with status asthmaticus (principal); K21.9 Gastro-esophageal reflux disease without esophagitis; F39 Unspecified mood [affective] disorder; G44.89 Other headache syndrome; F41.1 Generalized anxiety disorder; L29.9 Pruritus, unspecified
CPT/HCPCS: 99214

== ENCOUNTER 2023-07-04 08:51 | Outpatient (REF) | payer OTHER, SELFPAY ==
--- NOTE | ~2023-07-04 | US_ITS ---
EXAMINATION: US ABDOMEN COMPLETE CLINICAL INFORMATION: Gastroesophageal reflux disease without esophagitis. COMPARISON: None available. TECHNIQUE: Real-time imaging of the abdominal viscera. FINDINGS: PANCREAS: Tail obscured. ABDOMINAL AORTA: The proximal, mid, and distal segments are normal in caliber. INFERIOR VENA CAVA: Visualized portions are normal. LIVER: The liver is normal in size. The liver contour is normal. There is diffuse increased liver parenchymal echogenicity, consistent with hepatic steatosis. No focal hepatic lesion. There is no intrahepatic biliary duct dilatation seen. GALLBLADDER: The gallbladder is physiologically distended without evidence of stones, sludge, polyps, wall thickening or pericholecystic fluid. COMMON BILE DUCT: Normal in caliber measuring 0.4 cm in diameter. RIGHT KIDNEY: No hydronephrosis. No renal calculi or focal parenchymal lesions. The kidney measures 10.7 cm in maximum dimension. LEFT KIDNEY: No hydronephrosis. No renal calculi or focal parenchymal lesions. The kidney measures 10.5 cm in maximum dimension. SPLEEN: The spleen measures 10.4 cm in maximum dimension. FREE FLUID: None. US/US abdomen complete IMPRESSION: Hepatic steatosis.
== END 2023-07-04 08:52 | disposition home or self-care (01) ==
LOC: HO.HMGCX 08:51
PROVIDERS: PCP Internal Medicine; Visit Provider Nurse Practitioner
DX: K21.9 Gastro-esophageal reflux disease without esophagitis (principal)
CPT/HCPCS: 76700

== ENCOUNTER 2023-08-18 12:27 | Day surgery (SDC) | payer OTHER, SELFPAY ==
[2023-08-16 08:25] VITALS: BMI 28.7
--- NOTE | 2023-08-17 10:23 | P.CONAN_ITS ---
Documented by User: Kimmie Silva NP 08/17/23 10:25 HPI - Anesthesia Eval Consult details Narrative: 53yo F for Upper Endoscopy PMFSH Active Problems Active Problems: All Active Problems (Updated 06/28/23 @ 14:22 by Rory Nagy MD) Mood disorder (Acute) Frequency of urination (Acute) Dysuria (Acute) Itching (Acute) Pruritic erythematous rash (Acute) Urinary tract infection (Acute) Eczema (Acute) Anxiety, generalized (Acute) Asthma, moderate persistent (Acute) Atypical chest pain (Acute) PVC (premature ventricular contraction) (Acute) Palpitations (Acute) Tachycardia (Acute) Low mean corpuscular volume (MCV) (Acute) Paresthesias (Acute) Chronic GERD (Acute) Headache syndrome (Acute) Encounter for general adult medical examination with abnormal findings (Acute) Past Medical History Medical History (Updated 08/17/23 @ 10:24 by Kimmie Silva NP) Mood disorder Anxiety, generalized Asthma, moderate persistent PVC (premature ventricular contraction) Chronic GERD Family History Family History Father Colon cancer Mother Lung cancer Brother No problems noted. Brother No problems noted. Son No problems noted. Daughter No problems noted. Daughter No problems noted. Daughter No problems noted. Other Mental health disorder Substance use disorder Surgical History Surgical History (Updated 08/18/23 @ 12:45 by Kirsten Negrete RN) Hx of tubal ligation History of bunionectomy History of tonsillectomy History of section Social History Social History Housing: House Alcohol intake: current Alcohol intake frequency: does not drink Patient Tobacco Use Status: Never used Tobacco e-Cigarette/Vaping Use: Never Used Are you DNR?: No Advance Directives: No Advance Directives Information Provided: Yes Nutrition Risks: No Nutritional Risk Current occupational status: employed Cognitive needs: No Hearing needs: No Vision needs: Yes Meds Allergies Allergy/AdvReac Type Severity Reaction Status Date / Time cephalexin AdvReac Mild Hives Verified 06/28/23 14:07 Home Medications Medication Instructions Recorded Confirmed Last Taken Type align PO DAILY 06/02/23 06/28/23 Unknown History ascorbic acid (vitamin C) 1 tab PO DAILY 06/02/23 06/28/23 Unknown History polyethylene glycol 3350 17 17 g PO DAILY 06/02/23 06/28/23 Unknown History gram/dose oral powder (Miralax) simethicone 180 mg capsule (Gas 180 mg PO BID PRN 06/02/23 06/28/23 Unknown History Relief (simethicone)) Exam Height,Weight and Vital Signs: Height 5 ft 3 in Weight 73.482 kg Narrative Narrative: ECHO 2020 Conclusions: - The left ventricular systolic function is normal. The visually estimated ejection fraction is between 60-65%. - No obvious valvular pathology seen on this study. Holter 2020 Underlying rhythm is sinus; Average ventricular rate 90/min; range 57-138/min; About 27% of the time, ventricular rate >100/min; Occasional PACs; Occasional PVCs with one couplet; Symptoms in patient diary including shortness of breath, palpitations, associated with sinus rhythm. Assessment and Plan Assessment Anesthesia Assessment: Chart Reviewed Documented by User: Michelle Muñiz MD 08/18/23 13:45 [facility] Past Medical History Medical History (Updated 08/17/23 @ 10:24 by Kimmie Silva NP) Mood disorder Anxiety, generalized Asthma, moderate persistent PVC (premature ventricular contraction) Chronic GERD Family History Family History Father Colon cancer Mother Lung cancer Brother No problems noted. Brother No problems noted. Son No problems noted. Daughter No problems noted. Daughter No problems noted. Daughter No problems noted. Other Mental health disorder Substance use disorder Family history of problems with anesthesia: No Surgical History Surgical History (Updated 08/18/23 @ 12:45 by Kirsten Negrete RN) Hx of tubal ligation History of bunionectomy History of tonsillectomy History of section History of Problems with Anesthesia: No Social History Social History Housing: House Alcohol intake: current Alcohol intake frequency: does not drink Patient Tobacco Use Status: Never used Tobacco e-Cigarette/Vaping Use: Never Used Are you DNR?: No Advance Directives: No Advance Directives Information Provided: Yes Nutrition Risks: No Nutritional Risk Current occupational status: employed Cognitive needs: No Hearing needs: No Vision needs: Yes Meds Allergies Allergy/AdvReac Type Severity Reaction Status Date / Time cephalexin AdvReac Mild Hives Verified 06/28/23 14:07 Home Medications Medication Instructions Recorded Confirmed Last Taken Type align PO DAILY 06/02/23 06/28/23 Unknown History ascorbic acid (vitamin C) 1 tab PO DAILY 06/02/23 06/28/23 Unknown History polyethylene glycol 3350 17 17 g PO DAILY 06/02/23 06/28/23 Unknown History gram/dose oral powder (Miralax) simethicone 180 mg capsule (Gas 180 mg PO BID PRN 06/02/23 06/28/23 Unknown History Relief (simethicone)) Exam Airway Mallampati Class: II (one cap top right laterally) TM Dist: >3cm Neck ROM: Full Heart: rrr Lungs: cta Assessment and Plan Assessment Anesthesia Assessment: Anesthesia Plan Discussed Final Anesthetic Review Family History of Problems with Anesthesia: No History of Problems with Anesthesia: No NPO: Yes ASA Class: II Final Preanesthetic Review: No Changes in Pt Med Stat, Meds/Allgs Chart Reviewed and Consent Obtained/Reviewed Patient Risk: Intermediate Procedure Risk: Intermediate Anesthetic Plan Anesthetic Plan: MAC: Disposition: Standard PACU
[2023-08-18 12:29] VITALS: BP 144/73; PULSE 100; RESP 18; TEMP 36.9; O2SAT 97
[2023-08-18 12:37] VITALS: BMI 29.2
--- NOTE | 2023-08-18 12:49 | MHC.SHP ---
Pre-Procedural Eval Section A Date of Service: 08/18/23 The patient is an INPATIENT: No The History & Physical has been completed within 30 days and I have reviewed it.: No Section B Chief Complaint: GERD Relevant Family History (Specify if Yes): No Relevant Social History: None Present Medications: see Short Stay Collaborative assessment Medical History: Significant History (Asthma Eczema Palpitations/tachycardia Anxiety Paresthesias GERD ) History of Previous Operations: Relevant previous surgery/procedure and date(s) (History of bunionectomy History of section History of tonsillectomy) Allergies: Allergies Allergy/AdvReac Type Severity Reaction Status Date / Time cephalexin AdvReac Mild Hives Verified 06/28/23 14:07 Review of Systems Sugical H&P ROS: Negative: Constitution, Cardiovascular, Respiratory and Gastrointestinal Exam Surgical H&P Exam: Normal: Heart, Normal: Lungs, Normal: Extremities and Normal: Abdomen Plan Diagnosis/Plan: Unchanged I have reviewed the history and physical and performed a pertinent physical examination on my patient. No changes have occurred unless specified. Time Spent With Patient Time: Total time managing care of this patient today ____ minutes.
[2023-08-18] MEDS: Lactated Ringers 1,000 ML 100 ML IVCONT (12:50)
--- NOTE | 2023-08-18 13:51 | W.PM.OPN ---
Operative Note Operative Note Date of Service: 08/18/23 Narrative: FLEXIBLE TRANSORAL UPPER GASTROINTESTINAL ENDOSCOPY WITH BIOPSIES Pre-op diagnosis: GERD, regurgitation Post-op diagnosis: GERD, gastritis Endoscopist:? Ventura Bansal MD Anesthesia:?MAC Consent: Indications for the procedure and potential complications of bleeding, perforation, reaction to medications and missed diagnosis were discussed with the patient and informed consent was obtained. Instrument: Olympus GIF H 190 mid size upper endoscope Monitoring: Vital signs and clinical assessment, continuous EKG monitoring, Pulse oximetry, Carbon Dioxide monitoring and blood pressure monitoring were done throughout the procedure. Procedure: The patient was placed in the left lateral decubitis position and pre-procedure medications were administered and a bite block was placed. The endoscope was inserted into the mouth and advanced under direct vision to the third part of duodenum. A careful inspection was made as the upper endoscope was withdrawn including a retroflexed examination of the proximal stomach; Findings and interventions are described below. Findings: Larynx: Normal Esophagus: GE junction at 35 cms. No esophagitis or Frias's. Biopsies were obtained from proximal esophagus to check for EOE Stomach: Mild gastric erythema. Biopsies were obtained. Grade 2 flap valve on retroflexed examination of the cardia. Duodenum: Normal bulb and descending duodenum Intervention: Biopsies as noted above Impression and Post Procedure Diagnosis: Endoscopy Findings: ESOPHAGUS: Normal -biopsies were obtained from proximal esophagus to check for EOE STOMACH: Mild antral gastritis - biopsied to check for H pylori Plan: Await pathology results Patient has an appointment on 08/30/23 in the GI [facility] with Michelle Reid NP. Above findings were reviewed with the patient and GERD handout was given in the discharge area
[2023-08-18 14:03] VITALS: BP 114/63; PULSE 88; RESP 16; TEMP 36.5; O2SAT 96
[2023-08-18 14:18] VITALS: BP 140/70; PULSE 92; RESP 18; TEMP 36.4; O2SAT 98
== END 2023-08-18 14:40 | disposition home or self-care (01) ==
PROVIDERS: PCP Internal Medicine; Visit Provider Internal Medicine Gastroenterology
PROC: 0DJ08ZZ Inspection of Upper Intestinal Tract, Via Natural or Artificial Opening Endoscopic (ICD-10-PCS; CPT 43235; principal; 2023-08-18 13:20)
DX: K21.9 Gastro-esophageal reflux disease without esophagitis (principal); K29.50 Unspecified chronic gastritis without bleeding; F41.1 Generalized anxiety disorder; J45.909 Unspecified asthma, uncomplicated; Z79.51 Long term (current) use of inhaled steroids; Z79.899 Other long term (current) drug therapy; Z88.1 Allergy status to other antibiotic agents; Z98.890 Other specified postprocedural states
CPT/HCPCS: 43239; 88305; 88342; J2704

== ENCOUNTER → 2023-08-18 12:27 | Outpatient (BNV) | payer OTHER, SELFPAY | PROVIDERS: PCP Internal Medicine; Visit Provider Internal Medicine Gastroenterology | DX: K21.9 Gastro-esophageal reflux disease without esophagitis (principal); K29.70 Gastritis, unspecified, without bleeding | CPT/HCPCS: 43239 ==

== ENCOUNTER 2023-08-30 14:53 | Outpatient (AMB) | payer OTHER, SELFPAY ==
--- NOTE | 2023-08-30 15:01 | MHC.OFFVIS ---
Intake Vital Signs 08/30/23 15:05 Height 5 ft 3 in Weight 163 lb 2.273 oz BMI 28.9 BP 118/62 Blood Pressure Location Rt brachial Position Sitting Pulse 98 Intake Visit Reasons: s/p EGD and US Intake Note: Patient returns to in office visit today in follow up of EGD and US. CC: Patient states she continues to have trouble breathing and throwing up a little bit sometimes when it comes up . She underwent EGD by Dr. Bansal on 08/18/23. Cardiac Rehabilitation Program Director Required: No Accompanied by: Self / Same As Patient Allergies cephalexin Adverse Reaction (Mild, Verified 08/30/23 15:12) Hives HPI s/p EGD and US HPI Details Assessment & Plan (1) Chronic GERD: Code(s): K21.9 - Gastro-esophageal reflux disease without esophagitis Plan: She has had HB for a couple of years. Now she has been having acid brash that comes up in my mouth. She feels that her HB is well controlled on her current omeprazole 20mg, but if she misses a dose. BUT the acid brash happens a lot when she is moving around, she does not know if this worsens at night because she sleeps setting up on 4 pillows. She fears laying down because she feels pressure going up my chest. She also will have the regurg when she bends forward. No testing performed for this so far. There was some concern that her respiratory issues may be related to GERD. She has a lot of CIC and has been taking Align and fiber supplements. She also uses a gas pill. BUT she was under the impression that the Align was a stool softener and a digestive aid....but she shows me the box and it is just a probiotic supplement. THEN she remembers that she has been using Miralax as well. No similar problems in her family. She has been gaining weight recently. She used to be 110 but now is 156 since age 45. NO dysphagia. Discomfort in the epigastrum. Her mother had her GB out. No nausea. Again EGD along with an ultrasound a barium swallow see if there is any pathophysiologic abnormalities at play here. However she has gained over 40 lb in the last 8 years or so and this along with genetics may be contributing to her problem. There are no prior problems with anesthesia or sedation. Her asthma is a work in progress and she denies any cardiac problems. There are no infectious disease problems. ROV 8 weeks. (2) H/O colonoscopy: Code(s): Z98.890 - Other specified postprocedural states Orders: Orders [place] barium swallow Today K21.9 - Gastro-eso phageal reflux dis ease without esoph agitis EGD with Mitchell - G I Use Only Today K21.9 - Gastro-eso phageal reflux dis ease without esoph agitis US abdomen complet e Today K21.9 - Gastro-eso phageal reflux dis ease without esoph agitis ULTRASOUND OF THE ABDOMEN 07/05/23 FINDINGS: PANCREAS: Tail obscured. ABDOMINAL AORTA: The proximal, mid, and distal segments are normal in caliber. INFERIOR VENA CAVA: Visualized portions are normal. LIVER: The liver is normal in size. The liver contour is normal. There is diffuse increased liver parenchymal echogenicity, consistent with hepatic steatosis. No focal hepatic lesion. There is no intrahepatic biliary duct dilatation seen. GALLBLADDER: The gallbladder is physiologically distended without evidence of stones, sludge, polyps, wall thickening or pericholecystic fluid. COMMON BILE DUCT: Normal in caliber measuring 0.4 cm in diameter. RIGHT KIDNEY: No hydronephrosis. No renal calculi or focal parenchymal lesions. The kidney measures 10.7 cm in maximum dimension. LEFT KIDNEY: No hydronephrosis. No renal calculi or focal parenchymal lesions. The kidney measures 10.5 cm in maximum dimension. SPLEEN: The spleen measures 10.4 cm in maximum dimension. FREE FLUID: None. US/US abdomen complete IMPRESSION: Hepatic steatosis. EGD 08/18/23 Findings: Larynx: Normal Esophagus: GE junction at 35 cms. No esophagitis or Frias's. Biopsies were obtained from proximal esophagus to check for EOE Stomach: Mild gastric erythema. Biopsies were obtained. Grade 2 flap valve on retroflexed examination of the cardia. Duodenum: Normal bulb and descending duodenum Intervention: Biopsies as noted above Impression and Post Procedure Diagnosis: BIOPSY Received: 08/18/23 Diagnosis A. Stomach, antrum, biopsy: Antral-type and oxyntic mucosa with mild chronic inactive inflammation; no Helicobacter organisms seen. B. Esophagus, proximal, biopsy: Squamous epithelium within normal limits; no inflammation seen. BARIUM SWALLOW CT OF THE CHEST Chest x-ray TODAY'S VISIT Again she tells me she has not so much having dysphagia than regurgitation of stomach contents and acid brash. This is greatly worsened if she bends over, for example she made some tomato soup and bent over and all came up into her mouth. This is an extremely this taste will memory for her. She she is very worried about her breathing since it has progressively worsened and she has dyspnea even with minimal exertion over the past 6 years. She has had a negative cardiac workup but has not had a chest x-ray or any sort of lung workup. She has a significant exposure to secondhand smoke to her childhood as both her parents were very heavy smokers. She also has trouble laying flat related to her breathing as well as crunching to 4 forward. She says she was referred to our service because they thought that her regurg might have something to do with her breathing. She tolerated the EGD well but it did not bring us any definitive reasons for her regurgitation. I spent quite a bit of time educating her about the pathophysiology that could cause this, and why the barium swallow is important to help us further determine the best course of treatment. We review the possibility of a sliding hiatal hernia or even a paraesophageal hernia that it is difficult to see with the scope. A barium swallow also give us some better ideas about the movement capacity of the esophagus and whether this is a contributing factor. It is possible that she might be having some aspiration at night but she says she never sleeps laying flat she is always sitting up somewhat. At this point I will try ordering an x-ray and a screening CT to see if there is any lung disease and of course were going to be waiting for the results of the barium swallow. We did discuss that surgery is not routinely recommended unless there is a very large hiatal or paraesophageal hernia because it has an extremely involved procedure. However will have better information to recommend her not recommend this after the barium swallow. Return office visit in 6 weeks, just to make sure she gets a date for the barium swallow and the CT and we can go over the chest x-ray at that time. [facility] Medical History (Updated 08/30/23 @ 16:02 by ALLEN Rondon) Encounter for general adult medical examination with abnormal findings Mood disorder Anxiety, generalized Asthma, moderate persistent PVC (premature ventricular contraction) Chronic GERD Surgical History (Updated 08/30/23 @ 15:[address] [facility]) History of esophagogastroduodenoscopy (EGD) Hx of tubal ligation History of bunionectomy History of tonsillectomy History of section Family History Father Colon cancer Mother Lung cancer Brother No problems noted. Brother No problems noted. Son No problems noted. Daughter No problems noted. Daughter No problems noted. Daughter No problems noted. Other Mental health disorder Substance use disorder Social History Housing: House Alcohol intake: current Alcohol intake frequency: does not drink Patient Tobacco Use Status: Never used Tobacco e-Cigarette/Vaping Use: Never Used Current occupational status: employed Cognitive needs: No Hearing needs: No Vision needs: Yes Review of Systems Const Denies fatigue, Denies fever(s), Denies night sweats, Denies poor appetite, Reports weight gain and Denies weight loss ENT Reports Normal hearing present, Denies dental pain, Denies dysphagia, Denies hearing loss, Denies mouth pain, Denies odynophagia, Denies throat swelling, Denies tongue swelling and Reports other (Dentition adequate) Card Reports no additional complaints and Reports dyspnea on exertion Resp Reports dyspnea on exertion GI Details: Regurgitation of stomach contents into the throat and mouth Denies abdominal pain, Denies melena, Denies bloating, Denies hematochezia, Denies constipation, Denies GI cramping, Denies dysphagia, Denies excessive flatus, Denies early satiety, Denies heartburn, Denies diarrhea, Denies nausea, Denies odynophagia, Denies vomiting and Denies hematemesis Skin/Breast Denies pruritus, Denies lesions, Denies rash and Denies jaundice Neuro Reports Normal hearing present and Denies Abnormal speech present Psych Reports anxiety Endo Denies fatigue Aller/Immun Denies throat swelling and Denies tongue swelling Physical Exam Vital Signs: Last Vital Signs Pulse 98 08/30/23 15:05 BP 118/62 08/30/23 15:05 BMI result Body Mass Index 28.9 Const General: cooperative, no acute distress, well developed and well groomed Nutritional Appearance: well nourished and overweight Orientation/consciousness: oriented to person, oriented to place and oriented to time Limitations: No language barrier HEENT Head: Yes normocephalic and Yes atraumatic Eyes General: appearance normal, both eyes and all related structures Pupils: Equal, round and reactive pupils present Neck Neck: Yes normal visual inspection and Yes no lymphadenopathy Thyroid: Thyroid normal Resp Effort & Inspection: normal respiratory effort and able to speak in complete sentences Auscultation: clear to auscultation bilaterally Cardio Rate: regular rate Rhythm: regular rhythm Heart sounds: Normal, physiologic split S2 sound present Peripheral pulses: radial pulses present and posterior tibial pulses present GI Inspection: No distended and No Abdominal panniculus present Palpation (GI): Soft to palpation, nontender, no guarding, not rigid and No hepatosplenomegaly present Percussion: Yes normal to percussion Auscultation: normal bowel sounds Rectal Exam - Female: deferred Skin General skin exam: no rashes or lesions noted, turgor normal, skin not dry, no jaundice, No spider nevi and no striae Rashes: no rashes Nails: normal Neuro General: oriented to person, oriented to place and oriented to time Cranial nerves: Yes Equal, round and reactive pupils present and Yes Normal hearing present Speech: No Abnormal speech present Extrem General: Yes normal to inspection, No clubbing, No cyanosis and No edema Psych Appearance: grossly normal and well kempt Mental Status: mental status grossly normal Speech and movement: Normal speech and movement present Affect: Anxious affect present Attitude: cooperative Thought process: Normal thought process present and not confabulating Thought content: Normal thought content present Insight: Limited insight present (Psych) Judgement: Limited judgement present (Psych) Results Reviewed Results Reviewed: ULTRASOUND OF THE ABDOMEN 07/05/23 FINDINGS: PANCREAS: Tail obscured. ABDOMINAL AORTA: The proximal, mid, and distal segments are normal in caliber. INFERIOR VENA CAVA: Visualized portions are normal. LIVER: The liver is normal in size. The liver contour is normal. There is diffuse increased liver parenchymal echogenicity, consistent with hepatic steatosis. No focal hepatic lesion. There is no intrahepatic biliary duct dilatation seen. GALLBLADDER: The gallbladder is physiologically distended without evidence of stones, sludge, polyps, wall thickening or pericholecystic fluid. COMMON BILE DUCT: Normal in caliber measuring 0.4 cm in diameter. RIGHT KIDNEY: No hydronephrosis. No renal calculi or focal parenchymal lesions. The kidney measures 10.7 cm in maximum dimension. LEFT KIDNEY: No hydronephrosis. No renal calculi or focal parenchymal lesions. The kidney measures 10.5 cm in maximum dimension. SPLEEN: The spleen measures 10.4 cm in maximum dimension. FREE FLUID: None. US/US abdomen complete IMPRESSION: Hepatic steatosis. EGD 08/18/23 Findings: Larynx: Normal Esophagus: GE junction at 35 cms. No esophagitis or Frias's. Biopsies were obtained from proximal esophagus to check for EOE Stomach: Mild gastric erythema. Biopsies were obtained. Grade 2 flap valve on retroflexed examination of the cardia. Duodenum: Normal bulb and descending duodenum Intervention: Biopsies as noted above Impression and Post Procedure Diagnosis: BIOPSY Received: 08/18/23 Diagnosis A. Stomach, antrum, biopsy: Antral-type and oxyntic mucosa with mild chronic inactive inflammation; no Helicobacter organisms seen. B. Esophagus, proximal, biopsy: Squamous epithelium within normal limits; no inflammation seen. Assessment & Plan Assessment & Plan (1) GERD (gastroesophageal reflux disease): Code(s): K21.9 - Gastro-esophageal reflux disease without esophagitis (2) Atypical chest pain: Code(s): R07.89 - Other chest pain (3) History of second hand smoke exposure: Comment: both parents smoked heavily during her childhood. Code(s): Z77.22 - Contact with and (suspected) exposure to environmental tobacco smoke (acute) (chronic) (4) Dyspnea on minimal exertion: Code(s): R06.09 - Other forms of dyspnea Plan Again she tells me she has not so much having dysphagia than regurgitation of stomach contents and acid brash. This is greatly worsened if she bends over, for example she made some tomato soup and bent over and all came up into her mouth. This is an extremely this taste will memory for her. She she is very worried about her breathing since it has progressively worsened and she has dyspnea even with minimal exertion over the past 6 years. She has had a negative cardiac workup but has not had a chest x-ray or any sort of lung workup. She has a significant exposure to secondhand smoke to her childhood as both her parents were very heavy smokers. THERE HAS ALSO A SIGNIFICANT HISTORY of lung cancer in her family and she says ?it all started in the same way with shortness of breath like I have. ? She also has trouble laying flat related to her breathing as well as crunching to 4 forward. She says she was referred to our service because they thought that her regurg might have something to do with her breathing. She tolerated the EGD well but it did not bring us any definitive reasons for her regurgitation. I spent quite a bit of time educating her about the pathophysiology that could cause this, and why the barium swallow is important to help us further determine the best course of treatment. We review the possibility of a sliding hiatal hernia or even a paraesophageal hernia that it is difficult to see with the scope. A barium swallow also give us some better ideas about the movement capacity of the esophagus and whether this is a contributing factor. It is possible that she might be having some aspiration at night but she says she never sleeps laying flat she is always sitting up somewhat. At this point I will try ordering an x-ray and a screening CT to see if there is any lung disease and of course were going to be waiting for the results of the barium swallow. We did discuss that surgery is not routinely recommended unless there is a very large hiatal or paraesophageal hernia because it has an extremely involved procedure. However will have better information to recommend her not recommend this after the barium swallow. Return office visit in 6 weeks, just to make sure she gets a date for the barium swallow and the CT and we can go over the chest x-ray at that time. BARIUM SWALLOW CT OF THE CHEST Chest x-ray Orders: Orders CT chest wo IV con Today R06.09 - Other forms of dyspnea, R07.89 - Other chest pain, Z77.22 - Contact with and (suspected) exposure to environmental tobacco smoke (acute) (chronic) XR chest 2V Today R06.09 - Other forms of dyspnea, Z77.22 - Contact with and (suspected) exposure to environmental tobacco smoke (acute) (chronic) Coding Level of Care Code Est Pt Level 4 (79202) Diagnoses GERD (gastroesophageal reflux disease) K21.9 Atypical chest pain R07.89 History of second hand smoke exposure Z77.22 Dyspnea on minimal exertion R06.09 Time Spent (min) 34
[2023-08-30 15:05] VITALS: BP 118/62; PULSE 98; BMI 28.9
== END 2023-08-30 16:12 | disposition home or self-care (01) ==
PROVIDERS: PCP Internal Medicine; Visit Provider Nurse Practitioner
DX: K21.9 Gastro-esophageal reflux disease without esophagitis (principal); R07.89 Other chest pain; Z77.22 Contact with and (suspected) exposure to environmental tobacco smoke (acute) (chronic); R06.09 Other forms of dyspnea
CPT/HCPCS: 99214

== ENCOUNTER → 2023-08-30 14:53 | Outpatient (BNVA) | payer OTHER, SELFPAY | PROVIDERS: PCP Internal Medicine; Visit Provider Nurse Practitioner ==

== ENCOUNTER 2023-09-28 08:47 | Outpatient (REF) | payer OTHER, SELFPAY ==
--- NOTE | ~2023-09-28 | XR_ITS ---
EXAMINATION: XR CHEST CLINICAL INFORMATION: Dyspnea COMPARISON: Chest x-ray June 12, 2014 TECHNIQUE: 2 views of the chest were obtained. FINDINGS: Cardiac silhouette is normal in size. The lungs are well aerated. There is no lobar consolidation. No pleural effusion or pneumothorax. Mild degenerative changes of the spine. XR/XR chest 2V IMPRESSION: No acute pulmonary pathology.
== END 2023-09-28 08:48 | disposition home or self-care (01) ==
LOC: HO.HMGCX 08:47
PROVIDERS: PCP Internal Medicine; Visit Provider Nurse Practitioner
DX: R06.09 Other forms of dyspnea (principal); Z77.22 Contact with and (suspected) exposure to environmental tobacco smoke (acute) (chronic)
CPT/HCPCS: 71046

== ENCOUNTER 2023-10-13 12:41 | Outpatient (AMB) | payer OTHER, SELFPAY ==
[2023-10-13 12:44] VITALS: BP 142/73; PULSE 96; BMI 28.1
--- NOTE | 2023-10-13 12:44 | MHC.OFFVIS ---
Intake Vital Signs 10/13/23 12:44 Height 5 ft 3 in Weight 158 lb 11.725 oz BMI 28.1 BP 142/73 H Blood Pressure Location Rt brachial Position Sitting Pulse 96 Pulse Source Pulse Oximeter Intake Visit Reasons: 6 week follow up Intake Note: Pt presents to the office today for a 6 week follow up for chest pain/acid reflux. She states she is still experiencing acid reflux at random times of the day. She denies any N/V/D. Allergies cephalexin Adverse Reaction (Mild, Verified 10/13/23 12:46) Hives HPI 6 week follow up HPI Details Assessment & Plan (1) GERD (gastroesophageal reflux disease): Code(s): K21.9 - Gastro-esophageal reflux disease without esophagitis (2) Atypical chest pain: Code(s): R07.89 - Other chest pain (3) History of second hand smoke exposure: Comment: both parents smoked heavily during her childhood. Code(s): Z77.22 - Contact with and (suspected) exposure to environmental tobacco smoke (acute) (chronic) (4) Dyspnea on minimal exertion: Code(s): R06.09 - Other forms of dyspnea Plan Again she tells me she has not so much having dysphagia than regurgitation of stomach contents and acid brash. This is greatly worsened if she bends over, for example she made some tomato soup and bent over and all came up into her mouth. This is an extremely distasteful memory for her. She she is very worried about her breathing since it has progressively worsened and she has dyspnea even with minimal exertion over the past 6 years. She has had a negative cardiac workup but has not had a chest x-ray or any sort of lung workup. She has a significant exposure to secondhand smoke to her childhood as both her parents were very heavy smokers. THERE HAS ALSO A SIGNIFICANT HISTORY of lung cancer in her family and she says ?it all started in the same way with shortness of breath like I have. ? She also has trouble laying flat related to her breathing as well as crunching to 4 forward. She says she was referred to our service because they thought that her regurg might have something to do with her breathing. She tolerated the EGD well but it did not bring us any definitive reasons for her regurgitation. I spent quite a bit of time educating her about the pathophysiology that could cause this, and why the barium swallow is important to help us further determine the best course of treatment. We review the possibility of a sliding hiatal hernia or even a paraesophageal hernia that it is difficult to see with the scope. A barium swallow also give us some better ideas about the movement capacity of the esophagus and whether this is a contributing factor. It is possible that she might be having some aspiration at night but she says she never sleeps laying flat she is always sitting up somewhat. At this point I will try ordering an x-ray and a screening CT to see if there is any lung disease and of course were going to be waiting for the results of the barium swallow. We did discuss that surgery is not routinely recommended unless there is a very large hiatal or paraesophageal hernia because it has an extremely involved procedure. However will have better information to recommend her not recommend this after the barium swallow. Return office visit in 6 weeks, just to make sure she gets a date for the barium swallow and the CT and we can go over the chest x-ray at that time. Orders: Orders CT chest wo IV con Today R06.09 - Other for ms of dyspnea, R07 .89 - Other chest pain, Z77.22 - Con tact with and (kyler pected) exposure t o environmental to bacco smoke (acute ) (chronic) XR chest 2V Today R06.09 - Other for ms of dyspnea, Z77 .22 - Contact with and (suspected) e xposure to environ mental tobacco smo ke (acute) (chroni c) BARIUM SWALLOW CHEST CT CXR 09/28/23 FINDINGS: Cardiac silhouette is normal in size. The lungs are well aerated. There is no lobar consolidation. No pleural effusion or pneumothorax. Mild degenerative changes of the spine. XR/XR chest 2V IMPRESSION: No acute pulmonary pathology. TODAY'S VISIT Out take from my last note visit (She she is very worried about her breathing since it has progressively worsened and she has dyspnea even with minimal exertion over the past 6 years. She has had a negative cardiac workup but has not had a chest x-ray or any sort of lung workup. She has a significant exposure to secondhand smoke to her childhood as both her parents were very heavy smokers. THERE HAS ALSO A SIGNIFICANT HISTORY of lung cancer in her family and she says ?it all started in the same way with shortness of breath like I have. ? She also has trouble laying flat related to her breathing as well as crunching to 4 forward. She says she was referred to our service because they thought that her regurg might have something to do with her breathing. She tolerated the EGD well but it did not bring us any definitive reasons for her regurgitation. I spent quite a bit of time educating her about the pathophysiology that could cause this, and why the barium swallow is important to help us further determine the best course of treatment. We review the possibility of a sliding hiatal hernia or even a paraesophageal hernia that it is difficult to see with the scope. A barium swallow also give us some better ideas about the movement capacity of the esophagus and whether this is a contributing factor. It is possible that she might be having some aspiration at night but she says she never sleeps laying flat she is always sitting up somewhat. At this point I will try ordering an x-ray and a screening CT to see if there is any lung disease and of course were going to be waiting for the results of the barium swallow. We did discuss that surgery is not routinely recommended unless there is a very large hiatal or paraesophageal hernia because it has an extremely involved procedure. However will have better information to recommend her not recommend this after the barium swallow) She has not hard re: barium swallow or chest ct - I will have my staff check in to this. Her GERD has been ok, but she still will have food come up randomly. She continues on her omeprazole and her simethicone. ROV 3 mos [facility] Medical History Encounter for general adult medical examination with abnormal findings Mood disorder Anxiety, generalized Asthma, moderate persistent PVC (premature ventricular contraction) Chronic GERD Surgical History History of esophagogastroduodenoscopy (EGD) Hx of tubal ligation History of bunionectomy History of tonsillectomy History of section Family History Father Colon cancer Mother Lung cancer Brother No problems noted. Brother No problems noted. Son No problems noted. Daughter No problems noted. Daughter No problems noted. Daughter No problems noted. Other Mental health disorder Substance use disorder Social History Housing: House Alcohol intake: current Alcohol intake frequency: does not drink Patient Tobacco Use Status: Never used Tobacco e-Cigarette/Vaping Use: Never Used Current occupational status: employed Cognitive needs: No Hearing needs: No Vision needs: Yes Review of Systems Const Denies fatigue, Denies fever(s), Denies night sweats, Denies poor appetite and Denies weight loss ENT Reports Normal hearing present, Denies dental pain, Denies dysphagia, Denies hearing loss, Denies mouth pain, Denies odynophagia, Denies throat swelling, Denies tongue swelling and Reports other (Dentition adequate) Card Reports no additional complaints and Reports dyspnea Resp Reports dyspnea GI Details: Denies abdominal pain, Reports belching, Denies melena, Reports bloating, Denies hematochezia, Denies constipation, Denies GI cramping, Denies dysphagia, Denies excessive flatus, Denies early satiety, Reports heartburn, Denies diarrhea, Denies nausea, Denies odynophagia, Denies vomiting and Denies hematemesis Skin/Breast Denies pruritus, Denies lesions, Denies rash and Denies jaundice Neuro Reports Normal hearing present and Denies Abnormal speech present Endo Denies fatigue Aller/Immun Denies throat swelling and Denies tongue swelling Physical Exam Vital Signs: Last Vital Signs Pulse 96 10/13/23 12:44 BP 142/73 H 10/13/23 12:44 BMI result Body Mass Index 28.1 Const General: cooperative, no acute distress, well developed and well groomed Nutritional Appearance: average body habitus and well nourished Orientation/consciousness: oriented to person, oriented to place and oriented to time Limitations: No language barrier HEENT Head: Yes normocephalic and Yes atraumatic Eyes General: appearance normal, both eyes and all related structures Pupils: Equal, round and reactive pupils present Neck Neck: Yes normal visual inspection and Yes no lymphadenopathy Thyroid: Thyroid normal Resp Effort & Inspection: normal respiratory effort and able to speak in complete sentences Auscultation: clear to auscultation bilaterally Cardio Rate: regular rate Rhythm: regular rhythm Heart sounds: Normal, physiologic split S2 sound present Peripheral pulses: radial pulses present and posterior tibial pulses present GI Inspection: No distended and No Abdominal panniculus present Palpation (GI): Soft to palpation, nontender, no guarding, not rigid and No hepatosplenomegaly present Percussion: Yes normal to percussion Auscultation: normal bowel sounds Rectal Exam - Female: deferred Skin General skin exam: no rashes or lesions noted, turgor normal, skin not dry, no jaundice, No spider nevi and no striae Rashes: no rashes Nails: normal Neuro General: oriented to person, oriented to place and oriented to time Cranial nerves: Yes Equal, round and reactive pupils present and Yes Normal hearing present Speech: No Abnormal speech present Extrem General: Yes normal to inspection, No clubbing, No cyanosis and No edema Psych Appearance: grossly normal and well kempt Mental Status: mental status grossly normal Speech and movement: Normal speech and movement present Affect: normal affect Attitude: cooperative Thought process: Normal thought process present and not confabulating Thought content: Normal thought content present Insight: Limited insight present (Psych) Judgement: Limited judgement present (Psych) Assessment & Plan Assessment & Plan (1) GERD (gastroesophageal reflux disease): Code(s): K21.9 - Gastro-esophageal reflux disease without esophagitis (2) History of second hand smoke exposure: Comment: both parents smoked heavily during her childhood. Code(s): Z77.22 - Contact with and (suspected) exposure to environmental tobacco smoke (acute) (chronic) (3) Dyspnea on minimal exertion: Code(s): R06.09 - Other forms of dyspnea Plan Out take from my last note visit (She she is very worried about her breathing since it has progressively worsened and she has dyspnea even with minimal exertion over the past 6 years. She has had a negative cardiac workup but has not had a chest x-ray or any sort of lung workup. She has a significant exposure to secondhand smoke to her childhood as both her parents were very heavy smokers. THERE HAS ALSO A SIGNIFICANT HISTORY of lung cancer in her family and she says ?it all started in the same way with shortness of breath like I have. ? She also has trouble laying flat related to her breathing as well as crunching to 4 forward. She says she was referred to our service because they thought that her regurg might have something to do with her breathing. She tolerated the EGD well but it did not bring us any definitive reasons for her regurgitation. I spent quite a bit of time educating her about the pathophysiology that could cause this, and why the barium swallow is important to help us further determine the best course of treatment. We review the possibility of a sliding hiatal hernia or even a paraesophageal hernia that it is difficult to see with the scope. A barium swallow also give us some better ideas about the movement capacity of the esophagus and whether this is a contributing factor. It is possible that she might be having some aspiration at night but she says she never sleeps laying flat she is always sitting up somewhat. At this point I will try ordering an x-ray and a screening CT to see if there is any lung disease and of course were going to be waiting for the results of the barium swallow. We did discuss that surgery is not routinely recommended unless there is a very large hiatal or paraesophageal hernia because it has an extremely involved procedure. However will have better information to recommend her not recommend this after the barium swallow) She has not hard re: barium swallow or chest ct - I will have my staff check in to this. Her GERD has been ok, but she still will have food come up randomly. She continues on her omeprazole and her simethicone. ROV 3 mos Coding Level of Care Code Est Pt Level 3 (40259) Diagnoses GERD (gastroesophageal reflux disease) K21.9 History of second hand smoke exposure Z77.22 Dyspnea on minimal exertion R06.09
== END 2023-10-13 13:01 | disposition home or self-care (01) ==
PROVIDERS: PCP Internal Medicine; Visit Provider Nurse Practitioner
DX: K21.9 Gastro-esophageal reflux disease without esophagitis (principal); Z77.22 Contact with and (suspected) exposure to environmental tobacco smoke (acute) (chronic); R06.09 Other forms of dyspnea
CPT/HCPCS: 99213

== ENCOUNTER → 2023-10-13 12:41 | Outpatient (BNVA) | payer OTHER, SELFPAY | PROVIDERS: PCP Internal Medicine; Visit Provider Nurse Practitioner ==

== ENCOUNTER 2023-10-20 14:22 | Outpatient (AMB) | payer OTHER, SELFPAY ==
[2023-10-20 14:24] VITALS: BP 116/68; PULSE 88; O2SAT 99; BMI 28.2
--- NOTE | 2023-10-20 14:24 | MHC.PC.OV ---
Vital Signs 10/20/23 14:24 Height 5 ft 3 in Weight 159 lb BMI 28.2 BP 116/68 Blood Pressure Location Lt brachial Position Sitting Pulse 88 Pulse Source Pulse Oximeter Pulse Oximetry (%) 99 Oxygen Delivery Method Room Air Intake Visit Reasons: Annual PE Allergies cephalexin Adverse Reaction (Mild, Verified 10/20/23 14:25) Hives Medication List - Last Reconciled 10/20/23 by Rory Nagy MD albuterol sulfate 90 mcg/actuation 2 puffs PO Q4H PRN 90 days albuterol sulfate 0.63 mg (3 mL) inhalation QID PRN [align PO DAILY] ascorbic acid (vitamin C) 1 tab PO DAILY fluoxetine 20 mg PO DAILY fluticasone propion-salmeterol 250-50 mcg/dose (Wixela Inhub) 1 ea PO BID omeprazole 20 mg PO DAILY 90 days topiramate 50 mg PO BEDTIME Tobacco use date assessed: 10/20/23 Dental Screening Dental Screen Date: 10/20/23 Did you have a dental visit in the last 12 months?: No Did you have a dental problem in the last 6 months where you did not have access to dental care?: No Was dental information given to patient?: Patient has dentist HPI Annual PE HPI Details Patient is a 53-year-old female came in today for physical examination Pap smear through [facility] , however patient has not seen anybody since over 3 years now she has a new patient with [facility] She is now having heavy uterine bleeding since the beginning of this month, I have ordered ultrasound with the patient and I will see if she can be seen at [facility] urgently Colonoscopy was at age 50 at [facility] because of family history of colon cancer next 1 will be in 2025 Mammogram up-to-date Anxiety is stable GERD is stable and headache is stable patient is taking all her medications Medication list reviewed Asthma is not controlled, patient is taking Wixela I have adjusted the dose of Wixela And still using albuterol daily I have added montelukast, we will book telemedicine visit in 3 weeks to follow-up on that Lab order placed to be done fasting Follow-up 6 months physical exam 1 year [facility] Medical History Anxiety, generalized Encounter for general adult medical examination with abnormal findings Mood disorder Asthma, moderate persistent PVC (premature ventricular contraction) Chronic GERD Surgical History History of esophagogastroduodenoscopy (EGD) Hx of tubal ligation History of bunionectomy History of tonsillectomy History of section Family History Father Colon cancer Mother Lung cancer Brother No problems noted. Brother No problems noted. Son No problems noted. Daughter No problems noted. Daughter No problems noted. Daughter No problems noted. Other Mental health disorder Substance use disorder Social History Housing: House Alcohol intake: current Alcohol intake frequency: does not drink Patient Tobacco Use Status: Never used Tobacco e-Cigarette/Vaping Use: Never Used Current occupational status: employed Cognitive needs: No Hearing needs: No Vision needs: Yes Questionnaire Thrive Questionnaire Date Thrive assessed: 01/19/22 AUDIT C Alcohol Use Questionnaire (AUDIT-C) 1. How often do you have a drink containing alcohol?: Monthly or less 2. How many drinks containing alcohol do you have on a typical day when you are drinking?: 1 or 2 3. How often do you have six or more drinks on one occasion?: Never Total Score: 1 Score Reviewed/Action Taken: Yes LESLY-7 AMB Questionnaire LESLY-7 Date LESLY - 7 assessed: 07/14/21 Source: Developed by Drs. Roberto Dennis, India Bhatt, Vikash Hoffman and colleagues, with an educational aleja from [employer]. Review of Systems Const Denies chills, Denies fever(s) and Denies headache(s) Eyes Denies blurry vision ENT Denies headache(s), Denies nasal discharge, Denies nasal obstruction, Denies odynophagia and Denies sinus pain Card Denies chest pain at rest and Denies chest pain with activity Resp Denies cough and Denies hemoptysis GI Denies diarrhea, Denies odynophagia, Denies vomiting and Denies hematemesis Reports as per HPI Musc Denies abnormal gait Skin/Breast Reports as per HPI Neuro Denies Neuro-related abnormal movements, Denies Abnormal speech present, Denies abnormal gait, Denies headache(s) and Denies Sensory deficit (Neuro) Psych Denies mood swings and Denies paranoia Endo Reports as per HPI Jasvir/Lymph Reports as per HPI Aller/Immun Reports as per HPI Physical exam (Primary Care) Vital Signs: Last Vital Signs Pulse 88 10/20/23 14:24 BP 116/68 10/20/23 14:24 Pulse Ox 99 10/20/23 14:24 Oxygen Delivery Method Room Air 10/20/23 14:24 BMI result Body Mass Index 28.2 Tobacco/Smoking Status: Tobacco use Status Tobacco use date assessed 10/20/23 10/20/23 14:30 Patient Tobacco Use Status Never used Tobacco 10/20/23 14:30 e-Cigarette/Vaping Use Never Used 10/20/23 14:30 Thrive Assessment: Date of Thrive Assessment Date Thrive assessed 01/19/22 10/20/23 14:30 Const General: cooperative, comfortable and no acute distress Orientation/consciousness: patient oriented x3 HENMT Head: Yes normocephalic and Yes atraumatic Eyes General: appearance normal, both eyes and all related structures Pupils: Equal, round and reactive pupils present EOM: EOMs intact bilaterally Neck Neck: Yes supple and No lymphadenopathy Thyroid: Thyroid normal Lymphatic: no lymphadenopathy noted Chest Breast/axilla palpation: normal palpation of the breasts Resp Effort & Inspection: normal respiratory effort and able to speak in complete sentences Auscultation: clear to auscultation bilaterally Cardio Heart sounds: S1 normal heart sound present and S2 normal heart sound present GI Palpation (GI): Soft to palpation and nontender Auscultation: normal bowel sounds General: Yes no CVA tenderness Back/Spine/Pelvis Back: no CVA tenderness Skin General skin exam: elasticity normal and turgor normal Neuro General: patient oriented x3 and gait normal Cranial nerves: Yes Equal, round and reactive pupils present Speech: No Abnormal speech present Sensory Exam: No Sensory deficit (Neuro) Coordination: tandem gait normal and Romberg test negative Extrem General: Yes normal exam except as noted and No edema Assessment and Plan Assessment & Plan (1) Encounter for general adult medical examination with abnormal findings: Code(s): Z00.01 - Encounter for general adult medical examination with abnormal findings (2) Headache syndrome: Code(s): G44.89 - Other headache syndrome (3) GERD (gastroesophageal reflux disease): Code(s): K21.9 - Gastro-esophageal reflux disease without esophagitis Qualifiers: Esophagitis presence: without esophagitis Qualified Code(s): K21.9 - Gastro-esophageal reflux disease without esophagitis (4) Anxiety, generalized: Code(s): F41.1 - Generalized anxiety disorder (5) Asthma, moderate persistent: Code(s): J45.40 - Moderate persistent asthma, uncomplicated Qualifiers: Asthma complication type: with status asthmaticus Qualified Code(s): J45.42 - Moderate persistent asthma with status asthmaticus (6) Chronic GERD: Code(s): K21.9 - Gastro-esophageal reflux disease without esophagitis (7) Dysfunctional uterine bleeding: Code(s): N93.8 - Other specified abnormal uterine and vaginal bleeding Plan Patient is a 53-year-old female came in today for physical examination Pap smear through [facility] , however patient has not seen anybody since over 3 years now she has a new patient with [facility] She is now having heavy uterine bleeding since the beginning of this month, I have ordered ultrasound with the patient and I will see if she can be seen at [facility] urgently Colonoscopy was at age 50 at [facility] because of family history of colon cancer next 1 will be in 2025 Mammogram up-to-date Anxiety is stable GERD is stable and headache is stable patient is taking all her medications Medication list reviewed Asthma is not controlled, patient is taking Wixela, I adjusted the dose of Wixela And still using albuterol daily I have added montelukast, we will book telemedicine visit in 3 weeks to follow-up on that Lab order placed to be done fasting Follow-up 6 months physical exam 1 year Orders: Orders Comprehensive [place]. Panel Fast Today F41.1 - Generalized anxiety disorder, G44.89 - Other headache syndrome, K21.9 - Gastro-esophageal reflux disease without esophagitis, Z00.01 - Encounter for general adult medical examination with abnormal findings TSH reflex Free T4 Today F41.1 - Generalized anxiety disorder, G44.89 - Other headache syndrome, K21.9 - Gastro-esophageal reflux disease without esophagitis, Z00.01 - Encounter for general adult medical examination with abnormal findings Follicle Stimulating Hormone Today N93.8 - Other specified abnormal uterine and vaginal bleeding Complete Blood Count Auto Diff Today F41.1 - Generalized anxiety disorder, G44.89 - Other headache syndrome, K21.9 - Gastro-esophageal reflux disease without esophagitis, Z00.01 - Encounter for general adult medical examination with abnormal findings Lipid Panel Today F41.1 - Generalized anxiety disorder, G44.89 - Other headache syndrome, K21.9 - Gastro-esophageal reflux disease without esophagitis, Z00.01 - Encounter for general adult medical examination with abnormal findings US pelvic and transvaginal Today N93.8 - Other specified abnormal uterine and vaginal bleeding Lutenizing Hormone Today N93.8 - Other specified abnormal uterine and vaginal bleeding Referrals [employer] Referral N93.8 - Other specified abnormal uterine and vaginal bleeding Medications: New montelukast 10 mg PO DAILY 30 tabs 0RF fluticasone propion-salmeterol 500-50 mcg/dose (Wixela Inhub) 1 inh inhalation Q12H 60 ea 2RF Discontinued fluticasone propion-salmeterol 250-50 mcg/dose (Wixela Inhub) Discontinued Reason: Doctor's Order 1 ea PO BID 180 caps 3RF Coding Level of Care Code Est Pt Prev Care 40-64y(36230) Diagnoses Encounter for general adult medical examination with abnormal findings Z00.01 Headache syndrome G44.89 Gastroesophageal reflux disease without esophagitis K21.9 Esophagitis presence: without esophagitis Anxiety, generalized F41.1 Moderate persistent asthma with status asthmaticus J45.42 Asthma complication type: with status asthmaticus Chronic GERD K21.9 Dysfunctional uterine bleeding N93.8
== END 2023-10-20 16:07 | disposition home or self-care (01) ==
PROVIDERS: PCP Internal Medicine; Visit Provider Internal Medicine
DX: Z00.01 Encounter for general adult medical examination with abnormal findings (principal); G44.89 Other headache syndrome; K21.9 Gastro-esophageal reflux disease without esophagitis; F41.1 Generalized anxiety disorder; J45.42 Moderate persistent asthma with status asthmaticus; N93.8 Other specified abnormal uterine and vaginal bleeding
CPT/HCPCS: 99214; 99396

== ENCOUNTER 2023-10-21 08:17 | Outpatient (REF) | payer OTHER, SELFPAY ==
[2023-10-21 11:55] LABS: MANUAL DIFF FLAG NO
[2023-10-21 11:59] LABS: Basophils Percent Auto 0.3 % (0-2); Eosinophils Absolute Auto 0.3 X10*3/uL (0.0-0.4); Eosinophils Percent Auto 3.6 % (0-4); Hematocrit 36.2 % (37.0-47.0); Imm Gran Abs Auto 0.07 X10*3/uL (0.00-0.03); Imm Gran Pct Auto 0.7 % (0.0-0.4); Lymphocytes Absolute Auto 1.8 X10*3/uL (1.2-4.9); Lymphocytes Percent Auto 18.7 % (20-40); Mean Corpuscular HGB Conc 33.1 g/dl (31.0-35.0); Mean Corpuscular Hemoglobin 28.5 pg (27.0-33.0); Monocytes Absolute Auto 0.7 X10*3/uL (0.1-1.2); Monocytes Percent Auto 6.9 % (2-11); Neutrophils Absolute Auto 6.7 x10*3/uL (2.0-8.3); Neutrophils Percent Auto 69.8 % (45-73); Platelet Count 365 X10*3/uL (160-400); Red Blood Count 4.21 X10*6/uL (4.20-5.50); Red Cell Distribution Width 13.3 % (11.0-16.0); White Blood Count 9.5 X10*3/uL (4.8-10.8)
[2023-10-21 12:35] LABS: Alanine Aminotransferase 20 U/L (0-31); Albumin Level 4.1 g/dL (3.5-5.0); Alkaline Phosphatase 99 U/L (39-117); Anion Gap 12 (12-20); Aspartate Amino Transferase 19 U/L (5-31); Bilirubin Total 0.4 mg/dL (0.0-1.0); Blood Urea Nitrogen 18 mg/dL (9-16); Carbon Dioxide 23 mmol/L (22-29); Chloride 110 mmol/L (96-108); Cholesterol 160 mg/dL (<200); Estimated Glomerular Filt Rate > 60; Glucose Fasting 99 mg/dL (60-99); HDL Cholesterol 42 mg/dL (>40); LDL Cholesterol Calculated 79 mg/dL (<100); Potassium 4.4 mmol/L (3.3-5.1); Sodium 141 mmol/L (135-145); Total Protein 6.9 g/dL (6.5-8.0); Triglycerides 199 mg/dL (<150)
[2023-10-21 12:53] LABS: TSH reflex Free T4 1.07 uIU/mL (0.32-4.0)
[2023-10-23 04:47] LABS: Follicle Stimulating Hormone 14.7 mIU/mL; Lutenizing Hormone 16.6 mIU/mL
== END 2023-10-21 08:18 | disposition home or self-care (01) ==
LOC: HO.HMGCLDS 08:17
PROVIDERS: PCP Internal Medicine; Visit Provider Internal Medicine
DX: Z00.01 Encounter for general adult medical examination with abnormal findings (principal); Z13.6 Encounter for screening for cardiovascular disorders; G44.89 Other headache syndrome; K21.9 Gastro-esophageal reflux disease without esophagitis; F41.1 Generalized anxiety disorder; N93.8 Other specified abnormal uterine and vaginal bleeding
CPT/HCPCS: 36415; 80053; 80061; 83001; 83002; 84443; 85025

== ENCOUNTER 2023-11-17 13:56 | Outpatient (REF) | payer OTHER, SELFPAY ==
--- NOTE | ~2023-11-17 | CT_ITS ---
EXAMINATION: CT CHEST WITHOUT CONTRAST CLINICAL INFORMATION: Dyspnea. COMPARISON: Chest radiograph 09/28/2023. TECHNIQUE: Multidetector volumetric CT imaging of the chest was done. Axial MIP volume rendering provided. Sagittal and coronal reformatted images were obtained. This CT examination was performed using dose optimization techniques as appropriate, variously including the following: *Automated exposure control. *Adjustment of mA and/or kV according to patient size (this includes techniques or standardized protocols for targeted exams where dose is matched to indication/reason for exam; i.e. extremities or head). *Use of iterative reconstruction technique. DLP: 117.59 mGy-cm FINDINGS: LUNGS: The lungs are clear with no evidence of inflammation or nodules. MEDIASTINUM: The mediastinum is normal. CORONARY ARTERY CALCIFICATION: None visualized on this study. PLEURA: There is no pleural effusion. No pleural mass or thickening. AXILLA: No lymphadenopathy. UPPER ABDOMEN: Borderline decreased attenuation of the liver suggesting hepatic steatosis. OSSEOUS STRUCTURES: Unremarkable. There is a hemangioma present in the posterior aspect of the T12 vertebral body. CT/CT chest wo IV con IMPRESSION: 1. A cause for the patient's dyspnea has not been found. 2. Incidental note made of probable hepatic steatosis and a T12 vertebral body hemangioma. Fleischner guidelines were followed.
== END 2023-11-17 13:57 | disposition home or self-care (01) ==
LOC: HO.CT 13:56
PROVIDERS: PCP Internal Medicine; Visit Provider Nurse Practitioner
DX: R07.89 Other chest pain (principal); R06.09 Other forms of dyspnea; Z77.22 Contact with and (suspected) exposure to environmental tobacco smoke (acute) (chronic)
CPT/HCPCS: 71250

== ENCOUNTER 2023-12-07 07:59 | Outpatient (REF) | payer OTHER, SELFPAY ==
[2023-12-07 15:26] LABS: CT PCR NOT DETECTED (Not Detect.); NG PCR NOT DETECTED (Not Detect.)
== END 2023-12-07 08:00 | disposition home or self-care (01) ==
LOC: HO.LNP 07:59
PROVIDERS: PCP Internal Medicine; Visit Provider Obstetrics & Gynecology
DX: N93.9 Abnormal uterine and vaginal bleeding, unspecified (principal); Z20.2 Contact with and (suspected) exposure to infections with a predominantly sexual mode of transmission
CPT/HCPCS: 0353U

== ENCOUNTER 2023-12-07 07:59 | Outpatient (AMB) | payer OTHER, SELFPAY ==
[2023-12-07 08:10] VITALS: BP 118/74; BMI 28.1
--- NOTE | 2023-12-07 08:10 | MHC.OFFVIS ---
Vital Signs 12/07/23 08:10 Height 5 ft 3 in Weight 158 lb 11.725 oz BMI 28.1 BP 118/74 Intake Visit Reasons: New patient [employer] Tourism Radio Presenter Required: No Information Interpreted: non-clinical & clinical Foreign Exchange Student Coordinator: Foreign Exchange Student Coordinator Present (Kriss PEREZ) Accompanied by: Self / Same As Patient Allergies cephalexin Adverse Reaction (Mild, Verified 12/07/23 08:14) Hives HPI Comments Details: Presenting complaining of irregular menstrual cycles associated with passage of blood clots and pelvic cramping . Last screening mammogram was done at [facility] in 10/28 was BI-RADS 1 Last co testing done at [facility] in 10/24 was negative [facility] Medical History Anxiety, generalized Encounter for general adult medical examination with abnormal findings Mood disorder Asthma, moderate persistent PVC (premature ventricular contraction) Chronic GERD Surgical History History of esophagogastroduodenoscopy (EGD) Hx of tubal ligation History of bunionectomy History of tonsillectomy History of section Family History Father Colon cancer Mother Lung cancer Brother No problems noted. Brother No problems noted. Son No problems noted. Daughter No problems noted. Daughter No problems noted. Daughter No problems noted. Other Mental health disorder Substance use disorder Social History Housing: House Alcohol intake: current Alcohol intake frequency: does not drink Patient Tobacco Use Status: Never used Tobacco e-Cigarette/Vaping Use: Never Used Current occupational status: employed Cognitive needs: No Hearing needs: No Vision needs: Yes Review of Systems Const All systems reviewed & are unremarkable except as noted in HPI and below Physical Exam Vital Signs: Last Vital Signs BP 118/74 12/07/23 08:10 BMI result Body Mass Index 28.1 Chest Other: The patient declined stating that she recently had a breast exam at her PCP and a normal screening mammogram General: Yes no CVA tenderness External Female Exam: normal external appearance and normal appearance of the urethra Speculum Exam - Vagina: normal appearance of the vagina, normal palpation, no lesions and no masses Speculum Exam - Cervix: normal appearance of the cervix, normal palpation, no lesions, no masses and nontender Bimanual exam- vagina & uterus: normal bimanual exam, normal palpation, uterine size normal, normal palpation, uterine shape normal, No Cervical tenderness present and non-tender Bimanual Exam- Adnexa, other: normal adnexae Back/Spine/Pelvis Back: no CVA tenderness Assessment & Plan Assessment & Plan (1) Abnormal uterine bleeding (AUB): Code(s): N93.9 - Abnormal uterine and vaginal bleeding, unspecified Category: Medical Plan: Urine test done in the office was negative. GC and chlamydia taken CBC, prolactin, FSH/LH, TSH, HCG, and pelvic ultrasound ordered. Discussed with the patient the different causes of abnormal bleeding including thyroid disorders, uterine and ovarian pathology, endometrial hyperplasia, carcinoma and other potential causes. Discussed with the patient the work up including CBC (to r/o anemia), TSH, pelvic Ultrasound, endometrial biopsy to r/o endometrial pathology. All questions answered and the patient verbalized understanding. Instructed the patient to schedule an appointment for an endometrial biopsy in 2 weeks. Orders: Orders Prolactin Today N93.9 - Abnormal uterine and vaginal bleeding, unspecified Follicle Stimulating Hormone Today N93.9 - Abnormal uterine and vaginal bleeding, unspecified US pelvic and transvaginal Today N93.9 - Abnormal uterine and vaginal bleeding, unspecified TSH reflex Free T4 Today N93.9 - Abnormal uterine and vaginal bleeding, unspecified HCG Quantitative Today N93.9 - Abnormal uterine and vaginal bleeding, unspecified Lutenizing Hormone Today N93.9 - Abnormal uterine and vaginal bleeding, unspecified Complete Blood Count no Diff Today N93.9 - Abnormal uterine and vaginal bleeding, unspecified Coding Level of Care Code New Pt Level 3 (17709) Diagnoses Abnormal uterine bleeding (AUB) N93.9
== END 2023-12-07 09:24 | disposition home or self-care (01) ==
PROVIDERS: PCP Internal Medicine; Visit Provider Obstetrics & Gynecology
DX: N93.9 Abnormal uterine and vaginal bleeding, unspecified (principal)
CPT/HCPCS: 99203

== ENCOUNTER 2023-12-11 14:24 | Outpatient (REF) | payer OTHER, SELFPAY ==
--- NOTE | ~2023-12-11 | US_ITS ---
EXAMINATION: US PELVIS CLINICAL INFORMATION: Abnormal uterine and vaginal bleeding. COMPARISON: None available. TECHNIQUE: Ultrasound of the pelvis is performed using both transabdominal and transvaginal transducers along with Doppler. Transvaginal imaging is performed due to inadequate visualization transabdominally. FINDINGS: Uterus: The uterus is anteverted and measures 8.2 x 3.9 x 5.0 cm. The double wall endometrial thickness is 5 mm. The uterus is smooth in contour and has heterogeneous echogenicity. No visible fibroid. Adnexa: The right ovary measures 2.9 x 1.6 x 1.7 cm, volume 3 mL. The left ovary measures 2.2 x 0.9 x 1.5 cm, volume 2 mL. Normal color Doppler flow in the ovaries. No ovarian mass. No free fluid. US/US pelvic and transvaginal IMPRESSION: Heterogeneous uterine echotexture without discrete mass. Endometrial stripe measures 5 mm.
[2023-12-11 16:27] LABS: Hematocrit 29.8 % (37.0-47.0); Hemoglobin 9.3 g/dl (12.0-16.0); Mean Corpuscular HGB Conc 31.2 g/dl (31.0-35.0); Mean Corpuscular Hemoglobin 25.9 pg (27.0-33.0); Mean Platelet Volume 10.4 fL (9.4-12.3); Platelet Count 390 X10*3/uL (160-400); Red Blood Count 3.59 X10*6/uL (4.20-5.50); Red Cell Distribution Width 13.2 % (11.0-16.0); White Blood Count 8.5 X10*3/uL (4.8-10.8)
[2023-12-11 17:33] LABS: HCG Quantitative < 2 mIU/mL; TSH reflex Free T4 1.22 uIU/mL (0.32-4.0)
[2023-12-12 08:04] LABS: Follicle Stimulating Hormone 80.7 mIU/mL; Lutenizing Hormone 46.6 mIU/mL; Prolactin 11.9 ng/mL
== END 2023-12-11 14:25 | disposition home or self-care (01) ==
LOC: HO.HMGCX 14:24
PROVIDERS: PCP Internal Medicine; Visit Provider Obstetrics & Gynecology
DX: N93.9 Abnormal uterine and vaginal bleeding, unspecified (principal)
CPT/HCPCS: 36415; 76830; 76856; 83001; 83002; 84146; 84443; 84702; 85027

== ENCOUNTER 2023-12-12 09:50 | Outpatient (REF) | payer OTHER, SELFPAY ==
--- NOTE | ~2023-12-12 | FL_ITS ---
EXAMINATION: XR FLUOROSCOPY UPPER GI WITH AIR CLINICAL INFORMATION: Reflux COMPARISON: None TECHNIQUE: Fluoroscopic air contrast upper GI examination was performed utilizing standard techniques with thin and thick barium and effervescent granules. Numerous spot images were obtained. FINDINGS: Dual and single contrast images of the esophagus demonstrate normal caliber, contour, and mucosal pattern. No evidence of stricture, mass, or ulcerations identified. Esophageal peristalsis is mildly disorganized. A small type I hiatal hernia is present. Gastroesophageal reflux is seen in the distal esophagus. Dual contrast and single contrast images of the stomach demonstrated normal contour and mucosal pattern without evidence of mass, ulceration, or other abnormality. Contrast freely passed into the gastric antrum and duodenal bulb without delay. Single and air-contrast images of the duodenal bulb demonstrate no abnormality. The duodenal sweep has a normal appearance, course, and mucosal fold appearance. No evidence of malrotation. FLUOROSCOPY TIME: 4 minutes 1 second Number of Spot Images: 12 Number of Cine: 12 DOSE AREA PRODUCT: 2276 uGy-m2 (microgray-meter squared) FL/FL barium swallow IMPRESSION: 1. Mildly disorganized esophageal peristalsis. 2. Small type I hiatal hernia. 3. Mild gastroesophageal reflux. This procedure was performed by Santy Herndon PA-C, and supervised by Dr. Rangel
== END 2023-12-12 09:51 | disposition home or self-care (01) ==
LOC: HO.XRAY 09:50
PROVIDERS: PCP Internal Medicine; Visit Provider Nurse Practitioner
DX: K21.9 Gastro-esophageal reflux disease without esophagitis (principal)
CPT/HCPCS: 74220

== ENCOUNTER → 2023-12-12 09:51 | Outpatient (BNV) | payer OTHER, SELFPAY | PROVIDERS: PCP Internal Medicine; Visit Provider Physician Assistant Surgical | DX: K21.9 Gastro-esophageal reflux disease without esophagitis (principal) | CPT/HCPCS: 74246 ==

== ENCOUNTER 2023-12-13 09:08 | Outpatient (REF) | payer OTHER, SELFPAY | END 2023-12-13 09:09 | disposition home or self-care (01) | LOC: HO.LNP 09:08 | PROVIDERS: PCP Internal Medicine; Visit Provider Obstetrics & Gynecology | DX: N93.9 Abnormal uterine and vaginal bleeding, unspecified (principal) | CPT/HCPCS: 58100; 88305 ==

== ENCOUNTER 2023-12-13 09:08 | Outpatient (AMB) | payer OTHER, SELFPAY ==
--- NOTE | 2023-12-13 09:14 | A.OFFVIS_ITS ---
Vital Signs 12/13/23 09:16 Height 5 ft 3 in Weight 158 lb 11.725 oz BMI 28.1 BP 110/66 Intake Visit Reasons: EMB Registered Nurses Required: No Information Interpreted: non-clinical & clinical Maxillofacial Prosthodontist: Maxillofacial Prosthodontist Present (Kriss PEREZ) Accompanied by: Self / Same As Patient Allergies cephalexin Adverse Reaction (Mild, Verified 12/13/23 09:17) Hives HPI Comments Details: Presenting for endometrial biopsy [facility] Medical History Anxiety, generalized Encounter for general adult medical examination with abnormal findings Mood disorder Asthma, moderate persistent PVC (premature ventricular contraction) Chronic GERD Surgical History History of esophagogastroduodenoscopy (EGD) Hx of tubal ligation History of bunionectomy History of tonsillectomy History of section Family History Father Colon cancer Mother Lung cancer Brother No problems noted. Brother No problems noted. Son No problems noted. Daughter No problems noted. Daughter No problems noted. Daughter No problems noted. Other Mental health disorder Substance use disorder Social History Housing: House Alcohol intake: current Alcohol intake frequency: does not drink Patient Tobacco Use Status: Never used Tobacco e-Cigarette/Vaping Use: Never Used Current occupational status: employed Cognitive needs: No Hearing needs: No Vision needs: Yes Female Reproductive History Menstrual control method: permanent sterilization Physical Exam Vital Signs: Last Vital Signs BP 110/66 12/13/23 09:16 BMI result Body Mass Index 28.1 Office Procedures Endometrial Biopsy Details: The patient was counseled regarding the indication and benefits of endometrial sampling to rule out endometrial pathology including not limited to endometrial hyperplasia or endometrial cancer and others; The alternatives (Either do nothing vs. hysteroscopy D&C) & the risks were discussed with the patient including but not limited: pain, uterine perforation, bleeding, infection, possible injury to bladder, bowel, ureter, possible need for blood transfusion with all its possible risks. The patient verbalized understanding all questions answered and signed consent. The patient was placed into the dorsal lithotomy position; a speculum was inserted in the vagina. Using aseptic technique for the procedure, the cervix was cleansed with Betadine. The anterior lip of the cervix was grasped with a single tooth tenaculum. The uterus was sounded to 7 cm with a 4 mm Pipelle was used. Tissues samples were obtained and placed in formalin, in a patient labeled container and sent to the pathology department. At the end of the procedure, there was minimal bleeding noted The patient tolerated the procedure well and was discharged in good condition with the following instructions: Nothing in the vagina until the bleeding stops. No sex until the bleeding stops, to call if any of the following occurs: fever (>100.4), flu-like symptoms, abdominal pain, heavy bleeding, four smelling vaginal discharge. The patient was instructed to schedule a Follow up appointment in 2 weeks to discuss pathology results of the biopsy and treatment options. This note was generated with a voice recognition program. Some errors may have been overlooked during the review of this note. Sometimes these errors may affect the content or meaning of a given sentence. 23795-[id number] Biopsy Assessment & Plan Assessment & Plan (1) Abnormal uterine bleeding (AUB): Comment: FSH/LH in the menopausal range Code(s): N93.9 - Abnormal uterine and vaginal bleeding, unspecified Category: Medical Plan: EMB done, see procedure note Orders: Orders AMB Endometrial Biopsy Today N93.9 - Abnormal uterine and vaginal bleeding, unspecified Coding Level of Care Code Procedure Only Diagnoses Abnormal uterine bleeding (AUB) N93.9 CPT Codes Endometrial Biopsy - CPT: 18526-Myyobghwtjy Biopsy ([id number])
[2023-12-13 09:16] VITALS: BP 110/66; BMI 28.1
== END 2023-12-13 09:39 | disposition home or self-care (01) ==
PROVIDERS: PCP Internal Medicine; Visit Provider Obstetrics & Gynecology
DX: N93.9 Abnormal uterine and vaginal bleeding, unspecified (principal)
CPT/HCPCS: 58100

== ENCOUNTER 2024-01-16 12:46 | Outpatient (AMB) | payer OTHER, SELFPAY ==
--- NOTE | 2024-01-16 12:49 | A.OFFVIS_ITS ---
Vital Signs 01/16/24 12:50 Height 5 ft 3 in Weight 153 lb 14.122 oz BMI 27.3 BP 123/71 Blood Pressure Location Rt brachial Position Sitting Pulse 82 Intake Visit Reasons: 3 month follow up Intake Note: Alexandra returns to in office 3 months follow up of GERD. CC: Patient states that she is doing pretty good and she is no longer vomiting in her mouth. 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 Code(s): Z77.22 - Contact with and (suspected) exposure to environmental tobacco smoke (acute) (chronic) (3) Dyspnea on minimal exertion: Code(s): R06.09 - Other forms of dyspnea Plan Out take from my last note visit (She she is very worried about her breathing since it has progressively worsened and she has dyspnea even with minimal exertion over the past 6 years. She has had a negative cardiac workup but has not had a chest x-ray or any sort of lung workup. She has a significant exposure to secondhand smoke to her childhood as both her parents were very heavy smokers. THERE HAS ALSO A SIGNIFICANT HISTORY of lung cancer in her family and she says ?it all started in the same way with shortness of breath like I have. ? She also has trouble laying flat related to her breathing as well as crunching to 4 forward. She says she was referred to our service because they thought that her regurg might have something to do with her breathing. She tolerated the EGD well but it did not bring us any definitive reasons for her regurgitation. I spent quite a bit of time educating her about the pathophysiology that could cause this, and why the barium swallow is important to help us further determine the best course of treatment. We review the possibility of a sliding hiatal hernia or even a paraesophageal hernia that it is difficult to see with the scope. A barium swallow also give us some better ideas about the movement capacity of the esophagus and whether this is a contributing factor. It is possible that she might be having some aspiration at night but she says she never sleeps laying flat she is always sitting up somewhat. At this point I will try ordering an x-ray and a screening CT to see if there is any lung disease and of course were going to be waiting for the results of the barium swallow. We did discuss that surgery is not routinely recommended unless there is a very large hiatal or paraesophageal hernia because it has an extremely involved procedure. However will have better information to recommend her not recommend this after the barium swallow) She has not hard re: barium swallow or chest ct - I will have my staff check in to this. Her GERD has been ok, but she still will have food come up randomly. She continues on her omeprazole and her simethicone. ROV [address] 11/29/23 FINDINGS: LUNGS: The lungs are clear with no evidence of inflammation or nodules. MEDIASTINUM: The mediastinum is normal. CORONARY ARTERY CALCIFICATION: None visualized on this study. PLEURA: There is no pleural effusion. No pleural mass or thickening. AXILLA: No lymphadenopathy. UPPER ABDOMEN: Borderline decreased attenuation of the liver suggesting hepatic steatosis. OSSEOUS STRUCTURES: Unremarkable. There is a hemangioma present in the posterior aspect of the T12 vertebral body. CT/CT chest wo IV con IMPRESSION: 1. A cause for the patient's dyspnea has not been found. 2. Incidental note made of probable hepatic steatosis and a T12 vertebral body hemangioma. F BARIUM SWALLOW 12/13/23 FINDINGS: Dual and single contrast images of the esophagus demonstrate normal caliber, contour, and mucosal pattern. No evidence of stricture, mass, or ulcerations identified. Esophageal peristalsis is mildly disorganized. A small type I hiatal hernia is present. Gastroesophageal reflux is seen in the distal esophagus. Dual contrast and single contrast images of the stomach demonstrated normal contour and mucosal pattern without evidence of mass, ulceration, or other abnormality. Contrast freely passed into the gastric antrum and duodenal bulb without delay. Single and air-contrast images of the duodenal bulb demonstrate no abnormality. The duodenal sweep has a normal appearance, course, and mucosal fold appearance. No evidence of malrotation. FLUOROSCOPY TIME: 4 minutes 1 second Number of Spot Images: 12 Number of Cine: 12 DOSE AREA PRODUCT: 2276 uGy-m2 (microgray-meter squared) FL/FL barium swallow IMPRESSION: 1. Mildly disorganized esophageal peristalsis. 2. Small type I hiatal hernia. 3. Mild gastroesophageal reflux. Orders: Orders CT chest wo IV con Today R06.09 - Other forms of dyspnea, R07.89 - Other chest pain, Z77.22 - Contact with and (suspected) exposure to environmental tobacco smoke (acute) (chronic) XR chest 2V Today R06.09 - Other forms of dyspnea, Z77.22 - Contact with and (suspected) exposure to environmental tobacco smoke (acute) (chronic) BARIUM SWALLOW 12/13/23 FINDINGS: Dual and single contrast images of the esophagus demonstrate normal caliber, contour, and mucosal pattern. No evidence of stricture, mass, or ulcerations identified. Esophageal peristalsis is mildly disorganized. A small type I hiatal hernia is present. Gastroesophageal reflux is seen in the distal esophagus. Dual contrast and single contrast images of the stomach demonstrated normal contour and mucosal pattern without evidence of mass, ulceration, or other abnormality. Contrast freely passed into the gastric antrum and duodenal bulb without delay. Single and air-contrast images of the duodenal bulb demonstrate no abnormality. The duodenal sweep has a normal appearance, course, and mucosal fold appearance. No evidence of malrotation. FLUOROSCOPY TIME: 4 minutes 1 second Number of Spot Images: 12 Number of Cine: 12 DOSE AREA PRODUCT: 2276 uGy-m2 (microgray-meter squared) FL/FL barium swallow IMPRESSION: 1. Mildly disorganized esophageal peristalsis. 2. Small type I hiatal hernia. 3. Mild gastroesophageal reflux. CHEST CT 11/29/23 FINDINGS: LUNGS: The lungs are clear with no evidence of inflammation or nodules. MEDIASTINUM: The mediastinum is normal. CORONARY ARTERY CALCIFICATION: None visualized on this study. PLEURA: There is no pleural effusion. No pleural mass or thickening. AXILLA: No lymphadenopathy. UPPER ABDOMEN: Borderline decreased attenuation of the liver suggesting hepatic steatosis. OSSEOUS STRUCTURES: Unremarkable. There is a hemangioma present in the posterior aspect of the T12 vertebral body. CT/CT chest wo IV con IMPRESSION: 1. A cause for the patient's dyspnea has not been found. 2. Incidental note made of probable hepatic steatosis and a T12 vertebral body hemangioma. CXR 09/28/23 FINDINGS: Cardiac silhouette is normal in size. The lungs are well aerated. There is no lobar consolidation. No pleural effusion or pneumothorax. Mild degenerative changes of the spine. XR/XR chest 2V IMPRESSION: No acute pulmonary pathology. CORRESPONDENCE On 10/13/23 @ 13:16 Daphnie Case Wrote To Michelle Reid she was scheduled for the barium swallow for December 11 and for some reason the CT chest never went over to OF so i manually entered it today and she should get a call On 10/13/23 @ 12:58 Michelle Reid Wrote To Daphnie Case Can you see what is going on with the above? She has not heard from anyone to schedule these tests. TODAY'S VISIT She is having anemia problems r/t menomenorrhgia. Looking at the big picture and reviewing all of her lung exam is I think anemia is what is contributing to her shortness of breath and her fatigue. She takes oral iron replacement therapy but is only taking 1 a day because she is fearful of constipation. I let her know that disorganized peristalsis of the esophagus is the most likely cause for her GERD and occasional dysphagia. She says this makes sense to her. I tell her to eat slowly and carefully and let her know that anxiety sometimes can worsen peristalsis in smooth muscles. She will be careful and will practice safe swallowing precautions. She continues on her omeprazole once a day. Return office visit in 6 months [facility] Medical History (Updated 01/16/24 @ 13:13 by ALLEN Rondon) Urinary tract infection Itching Encounter for general adult medical examination with abnormal findings Dysfunctional uterine bleeding Anxiety, generalized Mood disorder Asthma, moderate persistent PVC (premature ventricular contraction) Chronic GERD Surgical History History of esophagogastroduodenoscopy (EGD) Hx of tubal ligation History of bunionectomy History of tonsillectomy History of section Family History Father Colon cancer Mother Lung cancer Brother No problems noted. Brother No problems noted. Son No problems noted. Daughter No problems noted. Daughter No problems noted. Daughter No problems noted. Other Mental health disorder Substance use disorder Social History Housing: House Alcohol intake: current Alcohol intake frequency: does not drink Patient Tobacco Use Status: Never used Tobacco e-Cigarette/Vaping Use: Never Used Current occupational status: employed Cognitive needs: No Hearing needs: No Vision needs: Yes Review of Systems Const Reports fatigue, Denies fever(s), Denies night sweats, Denies poor appetite and Denies weight loss ENT Reports Normal hearing present, Denies dental pain, Denies dysphagia, Denies he aring loss, Denies mouth pain, Denies odynophagia, Denies throat swelling, Denies tongue swelling and Reports other (Dentition adequate) Card Reports no additional complaints and Reports dyspnea on exertion Resp Reports dyspnea on exertion GI Details: Denies abdominal pain, Denies melena, Denies bloating, Denies hematochezia, Denies constipation, Denies GI cramping, Denies dysphagia, Denies excessive flatus, Denies early satiety, Reports heartburn, Denies diarrhea, Denies nausea, Denies odynophagia, Denies vomiting and Denies hematemesis Skin/Breast Denies pruritus, Denies lesions, Denies rash and Denies jaundice Neuro Reports Normal hearing present and Denies Abnormal speech present Endo Reports fatigue Aller/Immun Denies throat swelling and Denies tongue swelling Physical Exam Vital Signs: Last Vital Signs Pulse 82 01/16/24 12:50 BP 123/71 01/16/24 12:50 BMI result Body Mass Index 27.3 Const General: cooperative, no acute distress, well developed and well groomed Nutritional Appearance: average body habitus and well nourished Orientation/consciousness: oriented to person, oriented to place and oriented to time Limitations: No language barrier HEENT Head: Yes normocephalic and Yes atraumatic Eyes General: appearance normal, both eyes and all related structures Pupils: Equal, round and reactive pupils present Neck Neck: Yes normal visual inspection and Yes no lymphadenopathy Thyroid: Thyroid normal Resp Effort & Inspection: normal respiratory effort and able to speak in complete sentences Auscultation: clear to auscultation bilaterally Cardio Rate: regular rate Rhythm: regular rhythm Heart sounds: Normal, physiologic split S2 sound present Peripheral pulses: radial pulses present and posterior tibial pulses present GI Inspection: No distended and No Abdominal panniculus present Palpation (GI): Soft to palpation, nontender, no guarding, not rigid and No hepatosplenomegaly present Percussion: Yes normal to percussion Auscultation: normal bowel sounds Rectal Exam - Female: deferred Skin General skin exam: no rashes or lesions noted, turgor normal, skin not dry, no jaundice, No spider nevi and no striae Rashes: no rashes Nails: normal Neuro General: oriented to person, oriented to place and oriented to time Cranial nerves: Yes Equal, round and reactive pupils present and Yes Normal hearing present Speech: No Abnormal speech present Extrem General: Yes normal to inspection, No clubbing, No cyanosis and No edema Psych Appearance: grossly normal and well kempt Mental Status: mental status grossly normal Speech and movement: Normal speech and movement present Affect: normal affect Attitude: cooperative Thought process: Normal thought process present and not confabulating Thought content: Normal thought content present Insight: Fair insight present (Psych) Judgement: Fair judgement present (Psych) Results Reviewed Results Reviewed: BARIUM SWALLOW 12/13/23 FINDINGS: Dual and single contrast images of the esophagus demonstrate normal caliber, contour, and mucosal pattern. No evidence of stricture, mass, or ulcerations identified. Esophageal peristalsis is mildly disorganized. A small type I hiatal hernia is present. Gastroesophageal reflux is seen in the distal esophagus. Dual contrast and single contrast images of the stomach demonstrated normal contour and mucosal pattern without evidence of mass, ulceration, or other abnormality. Contrast freely passed into the gastric antrum and duodenal bulb without delay. Single and air-contrast images of the duodenal bulb demonstrate no abnormality. The duodenal sweep has a normal appearance, course, and mucosal fold appearance. No evidence of malrotation. FLUOROSCOPY TIME: 4 minutes 1 second Number of Spot Images: 12 Number of Cine: 12 DOSE AREA PRODUCT: 2276 uGy-m2 (microgray-meter squared) FL/FL barium swallow IMPRESSION: 1. Mildly disorganized esophageal peristalsis. 2. Small type I hiatal hernia. 3. Mild gastroesophageal reflux. CHEST CT 11/29/23 FINDINGS: LUNGS: The lungs are clear with no evidence of inflammation or nodules. MEDIASTINUM: The mediastinum is normal. CORONARY ARTERY CALCIFICATION: None visualized on this study. PLEURA: There is no pleural effusion. No pleural mass or thickening. AXILLA: No lymphadenopathy. UPPER ABDOMEN: Borderline decreased attenuation of the liver suggesting hepatic steatosis. OSSEOUS STRUCTURES: Unremarkable. There is a hemangioma present in the posterior aspect of the T12 vertebral body. CT/CT chest wo IV con IMPRESSION: 1. A cause for the patient's dyspnea has not been found. 2. Incidental note made of probable hepatic steatosis and a T12 vertebral body hemangioma. CXR 09/28/23 FINDINGS: Cardiac silhouette is normal in size. The lungs are well aerated. There is no lobar consolidation. No pleural effusion or pneumothorax. Mild degenerative changes of the spine. XR/XR chest 2V IMPRESSION: No acute pulmonary pathology Assessment & Plan Assessment & Plan (1) GERD (gastroesophageal reflux disease): Code(s): K21.9 - Gastro-esophageal reflux disease without esophagitis Category: Medical Qualifiers: Esophagitis presence: without esophagitis Qualified Code(s): K21.9 - Gastro-esophageal reflux disease without esophagitis (2) Atypical chest pain: Code(s): R07.89 - Other chest pain Category: Medical (3) Dyspnea on minimal exertion: Code(s): R06.09 - Other forms of dyspnea Category: Medical Plan She is having anemia problems r/t menomenorrhgia. Looking at the big picture and reviewing all of her lung exam is I think anemia is what is contributing to her shortness of breath and her fatigue. She takes oral iron replacement therapy but is only taking 1 a day because she is fearful of constipation. I let her know that disorganized peristalsis of the esophagus is the most likely cause for her GERD and occasional dysphagia. She says this makes sense to her. I tell her to eat slowly and carefully and let her know that anxiety sometimes can worsen peristalsis in smooth muscles. She will be careful and will practice safe swallowing precautions. She continues on her omeprazole once a day. Return office visit in 6 months Coding Level of Care Code Est Pt Level 4 (74711) Diagnoses Gastroesophageal reflux disease without esophagitis K21.9 Esophagitis presence: without esophagitis Atypical chest pain R07.89 Dyspnea on minimal exertion R06.09 Time Spent (min) 35
[2024-01-16 12:50] VITALS: BP 123/71; PULSE 82; BMI 27.3
== END 2024-01-16 13:28 | disposition home or self-care (01) ==
PROVIDERS: PCP Internal Medicine; Visit Provider Nurse Practitioner
DX: K21.9 Gastro-esophageal reflux disease without esophagitis (principal); R07.89 Other chest pain; R06.09 Other forms of dyspnea
CPT/HCPCS: 99214

== ENCOUNTER → 2024-01-16 12:46 | Outpatient (BNVA) | payer OTHER, SELFPAY | PROVIDERS: PCP Internal Medicine; Visit Provider Nurse Practitioner ==

== ENCOUNTER 2024-01-23 14:40 | Outpatient (AMB) | payer OTHER, SELFPAY ==
[2024-01-23 14:42] VITALS: BP 120/68; BMI 26.9
--- NOTE | 2024-01-23 14:42 | MHC.OFFVIS ---
Vital Signs 01/23/24 14:42 Height 5 ft 3 in Weight 152 lb 1.903 oz BMI 26.9 BP 120/68 Intake Visit Reasons: EMB follow up Clinical Informatics Spec Required: No Information Interpreted: non-clinical & clinical Sas Clinical Programmer: Sas Clinical Programmer Present (Kriss Berman) Accompanied by: Self / Same As Patient Allergies Seasonal Allergies Allergy (Unknown, Verified 01/23/24 15:38) allergies cephalexin Adverse Reaction (Mild, Verified 01/23/24 15:38) Hives Post menopausal: Yes HPI Comments Details: The patient is presenting for follow-up to discuss the results of her abnormal uterine bleeding workup and options of treatment. The following workup was done.: H&H= 9.3/29.8 TSH, prolactin, hCG, GC and chlamydia were negative. FSH/LH in the menopausal range Endometrial biopsy pathology showed the following: Disordered proliferative endometrium; no atypia or hyperplasia identified Co testing was done in 10/24 was negative. Mammogram was done in 10/28 was BI-RADS 1 Pelvic ultrasound showed the following: Uterus: The uterus is anteverted and measures 8.2 x 3.9 x 5.0 cm. The double wall endometrial thickness is 5 mm. The uterus is smooth in contour and has heterogeneous echogenicity. No visible fibroid. Adnexa: The right ovary measures 2.9 x 1.6 x 1.7 cm, volume 3 mL. The left ovary measures 2.2 x 0.9 x 1.5 cm, volume 2 mL. Normal color Doppler flow in the ovaries. No ovarian mass. No free fluid. [facility] Medical History (Updated 01/23/24 @ 15:27 by Dominick Steiner MD) Urinary tract infection Itching Encounter for general adult medical examination with abnormal findings Dysfunctional uterine bleeding Anxiety, generalized Mood disorder Asthma, moderate persistent PVC (premature ventricular contraction) Chronic GERD Surgical History History of esophagogastroduodenoscopy (EGD) Hx of tubal ligation History of bunionectomy History of tonsillectomy History of section Family History Father Colon cancer Mother Lung cancer Brother No problems noted. Brother No problems noted. Son No problems noted. Daughter No problems noted. Daughter No problems noted. Daughter No problems noted. Other Mental health disorder Substance use disorder Social History Housing: House Alcohol intake: current Alcohol intake frequency: does not drink Patient Tobacco Use Status: Never used Tobacco e-Cigarette/Vaping Use: Never Used Current occupational status: employed Cognitive needs: No Hearing needs: No Vision needs: Yes Physical Exam Vital Signs: Last Vital Signs BP 120/68 01/23/24 14:42 BMI result Body Mass Index 26.9 Office Procedures IUD Insert/Removal Details Details: The patient is presenting for Mirena IUD insertion The following possible complications were discussed with the patient: Intrauterine , Ectopic , Sepsis, Pelvic Infection, Irregular Bleeding and Amenorrhea, Perforation, Expulsion, Ovarian Cysts, Breast Cancer, The following adverse effects were discussed with the patient: alteration of menstrual bleeding pattern, including: unscheduled uterine bleeding decreased uterine bleeding increased scheduled uterine bleeding female genital tract bleeding ,amenorrhea , genital discharge , vulvovaginitis , breast pain , benign ovarian cyst and associated complications , dysmenorrhea , Gastrointestinal disorders abdominal/pelvic pain, headache/migraine , back pain , acne , depression Alternative options were discussed with the patient including but not limited: control pills, patch, NuvaRing, Depo-medroxyprogesterone acetate, Nexplanon, copper IUD, sterilization, vasectomy, others The procedure was explained in detail to patient , at the end patient signed the informed consent obtained. A no touch technique was used throughout the procedure. A speculum was placed into vagina and cervix was cleaned with betadine). A tenaculum was placed. A plastic sound was advanced through the external and internal os until it reached the fundus of the uterus, the depth was 8 cm. The sound was then withdrawn. The IUD was loaded in a sterile manner and advanced into position. The string was visualized and cut to 3 cm. Tenaculum site hemostatic. All instruments removed from vagina. Patient tolerated the procedure well. NO complications were noted. Patient was instructed to call for fever over 100.4, significant pain unrelieved by Motrin, IUD expulsion, heavy bleeding, or abnormal discharge. In addition, the following clinical considerations were discussed with the patient to call for removal: A stroke or heart attack ,Very severe or migraine headaches ,Unexplained fever ,Yellowing of the skin or whites of the eyes, as these may be signs of serious liver problems , or suspected , Pelvic pain or pain during sex ,HIV positive seroconversion in herself or her partner , Possible exposure to sexually transmitted infections Unusual vaginal discharge or genital sores , severe vaginal bleeding or bleeding that lasts a long time, or if she misses a menstrual period, Inability to feel Mirena's threads Counseled the patient that the IUD does not protect against STI's, recommended use of condoms for the first 7 days post insertion and explained to the patient that condoms are recommended for patients at risk for sexually transmitted infections. Informed the patient that Mirena IUD is FDA approved for 8 years for contraception for 5 years for the treatment of heavy menses Instructed the patient to schedule a Follow up appointment in 4 to 6 weeks following insertion. This note was generated with a voice recognition program. Some errors may have been overlooked during the review of this note. Sometimes these errors may affect the content or meaning of a given sentence. [id number] Insertion Procedure code (CPT) selection complete Office Meds Mirena 21 mcg/24 hours (8 yrs) 52 mg intrauterine device Performing Provider: Dominick Steiner MD Performing Location: [facility] [place] [facility] Documented (not given) by: Dominick Steiner MD on 01/23/24 15:47 Dose Route Admin Location Dispensed Lot Number Expiration Date [facility] [employer] 1 device intrauterine ea Assessment & Plan Assessment & Plan (1) Abnormal uterine bleeding (AUB): Comment: FSH/LH in the menopausal range Proliferative endometrium on EMB Anemia Code(s): N93.9 - Abnormal uterine and vaginal bleeding, unspecified Category: Medical Plan: Recommended Iron sulfate 325 mg p.o. b.i.d. for 8 more weeks for repeat CBC in 8 weeks. Discussed with the patient the results of the work up done and options of treatment including Lysteda, control pills, Mirena IUD, endometrial ablation and hysterectomy. Explained to the patient that in patients in menopause with proliferative endometrium at high-risk of developing endometrial hyperplasia or malignancy if untreated. All pros, cons, risks and benefits if each option was discussed with the patient and the patient decided to go ahead with Mirena IUD so a more detailed discussion about it was conducted including mechanism of action, risks (uterine perforation, infection, injury to bladder, bowel, displacement, and others) benefits (hypo menorrhea, amenorrhea, ...). GC/CT were recently taken and negative and the patient decided to proceed with Mirena IUD insertion. Mirena IUD inserted, see procedure note. Instructions given the patient to schedule a repeat EMB in 4 months because of the risk of association of proliferative endometrium in menopause with an increase the risk of endometrial hyperplasia and/or malignancy . All questions answered, the patient verbalized understanding Orders: Orders Complete Blood Count no Diff 8 Weeks N93.9 - Abnormal uterine and vaginal bleeding, unspecified AMB IUD Insertion/Removal - Practice Supplied Today N93.9 - Abnormal uterine and vaginal bleeding, unspecified Medications: New Mirena (levonorgestrel) 1 device intrauterine ONCE 1 ea 0RF NS N93.9 - Abnormal uterine and vaginal bleeding, unspecified Coding Level of Care Code Est Pt Level 3 (63157) Procedure Only Diagnoses Abnormal uterine bleeding (AUB) N93.9 CPT Codes Details - CPT: 59280-ZCK Insertion ([id number])
== END 2024-01-23 16:28 | disposition home or self-care (01) ==
PROVIDERS: PCP Internal Medicine; Visit Provider Obstetrics & Gynecology
DX: N93.9 Abnormal uterine and vaginal bleeding, unspecified (principal); Z30.430 Encounter for insertion of intrauterine contraceptive device
CPT/HCPCS: 58300; 99213

== ENCOUNTER → 2024-01-23 14:40 | Outpatient (BNVA) | payer OTHER, SELFPAY | PROVIDERS: PCP Internal Medicine; Visit Provider Obstetrics & Gynecology | DX: Z30.430 Encounter for insertion of intrauterine contraceptive device (principal); N93.9 Abnormal uterine and vaginal bleeding, unspecified | CPT/HCPCS: 58300; J7298 ==

== ENCOUNTER 2024-04-23 15:08 | Outpatient (AMB) | payer OTHER, SELFPAY ==
[2024-04-23 15:10] VITALS: BP 112/72; PULSE 89; O2SAT 96; BMI 27.3
--- NOTE | 2024-04-23 15:10 | A.OFFPC_ITS ---
Vital Signs 04/23/24 15:10 Height 5 ft 3 in Weight 154 lb 6 oz BMI 27.3 BP 112/72 Blood Pressure Location Lt brachial Position Sitting Pulse 89 Pulse Source Pulse Oximeter Pulse Oximetry (%) 96 Oxygen Delivery Method Room Air Intake Visit Reasons: 6 month follow up Allergies Seasonal Allergies Allergy (Unknown, Verified 04/23/24 15:10) allergies cephalexin Adverse Reaction (Mild, Verified 04/23/24 15:10) Hives Medication List - Last Reconciled 04/23/24 by Rory Nagy MD albuterol sulfate 90 mcg/actuation 2 puffs PO Q4H PRN 90 days albuterol sulfate 0.63 mg (3 mL) inhalation QID PRN ferrous sulfate (Feosol) 325 mg PO DAILY fluoxetine 20 mg PO DAILY fluticasone propion-salmeterol 500-50 mcg/dose (Wixela Inhub) 1 inh inhalation Q12H montelukast 10 mg PO DAILY multivitamin 1 tab PO DAILY omeprazole 20 mg PO DAILY 90 days Tobacco use date assessed: 04/23/24 Dental Screening Dental Screen Date: 04/23/24 Did you have a dental visit in the last 12 months?: Yes Did you have a dental problem in the last 6 months where you did not have access to dental care?: No Was dental information given to patient?: Patient has dentist HPI 6 month follow up HPI Details Patient is a 54-year-old female , patient was able to wean herself off fluoxetine and is doing well now do not have anxiety She also stopped taking amitriptyline that she was taking for migraine headaches. GERD is stable with omeprazole Asthma is stable with Advair and albuterol as needed Patient wanted dietary instructions to lose some weight We had a detailed discussion regarding calorie count and eating healthy I will also book her appointment with the dietitian. Last time she had labs she was anemic due to heavy menstrual cycles She is now have IUD and heavy bleeding has stopped She also has stopped taking iron supplement. [facility] Medical History Asthma, moderate persistent Urinary tract infection Itching Encounter for general adult medical examination with abnormal findings Dysfunctional uterine bleeding Anxiety, generalized Mood disorder PVC (premature ventricular contraction) Chronic GERD Surgical History History of esophagogastroduodenoscopy (EGD) Hx of tubal ligation History of bunionectomy History of tonsillectomy History of section Family History Father Colon cancer Mother Lung cancer Brother No problems noted. Brother No problems noted. Son No problems noted. Daughter No problems noted. Daughter No problems noted. Daughter No problems noted. Other Mental health disorder Substance use disorder Social History Housing: House Alcohol intake: current Alcohol intake frequency: does not drink Patient Tobacco Use Status: Never used Tobacco e-Cigarette/Vaping Use: Never Used Current occupational status: employed Cognitive needs: No Hearing needs: No Vision needs: Yes Questionnaire PHQ-9 Over the last 2 weeks, how often have you been bothered by any of the following problems? 1. Little interest or pleasure in doing things: not at all 2. Feeling down, depressed, or hopeless: not at all 3. Trouble falling or staying asleep, or sleeping too much: more than half the days 4. Feeling tired or having little energy: more than half the days 5. Poor appetite or overeating: not at all 6. Feeling bad about yourself - or that you are a failure or have let yourself or your family down: not at all 7. Trouble concentrating on things, such as reading the newspaper or watching television: not at all 8. Moving or speaking so slowly that other people could have noticed. Or the o pposite - being so fidgety or restless that you have been moving around a lot more than usual: more than half the days 9. Thoughts that you would be better off or of hurting yourself in some way: not at all Total score: 6 Depression Screening Interpretation: Negative Depression Screening Done: Yes 23702 - PHQ-9 Billing: Yes Source: Developed by Drs. Roberto Dennis, India Bhatt, Vikash Hoffman and colleagues, with an educational aleja from [facility]. Thrive Questionnaire Date Thrive assessed: 04/23/24 I am a: Patient What is your living situation today?: I have a steady place to live Within the past 12 months, did the food you bought not last and you didn't have the money to get more?: I choose not to answer this question Within the past 12 months, did you worry whether your food would run out before you got money to buy more?: I choose not to answer this question Do you have trouble paying for medicines?: I choose not to answer this question Do you have trouble getting transportation to medical appointments?: No Do you have trouble paying your heating and electricity bill?: No Do you have trouble taking care of your child, family member or friend?: No Do you have trouble with day-to-day activities such as bathing, preparing meals, shopping, managing finances, etc.?: No Are you interested in more education?: I choose not to answer this question Please select the resources that you would like help with: None Currently or been in a relationship where the following occur: No concerns reported THRIVE Score: 0 AUDIT C Alcohol Use Questionnaire (AUDIT-C) 1. How often do you have a drink containing alcohol?: 2-4 times a month 2. How many drinks containing alcohol do you have on a typical day when you are drinking?: 1 or 2 3. How often do you have six or more drinks on one occasion?: Never Total Score: 2 Score Reviewed/Action Taken: Yes LESLY-7 AMB Questionnaire LESLY-7 Date LESLY - 7 assessed: 04/23/24 Feeling nervous, anxious, or on edge: 0 = Not at all Not being able to stop or control worryin = Not at all Worrying too much about different things: 0 = Not at all Trouble relaxin = More than half the days Being so restless that it is hard to sit still: 2 = More than half the days Becoming easily annoyed or irritable: 2 = More than half the days Feeling afraid as if something awful might happen: 0 = Not at all Total LESLY-7 score (0-4 normal; 5-9 mild; 10-14 moderate; 15-21 severe): 6 Source: Developed by Drs. Roberto Dennis, India Bhatt, Vikash Hoffman and colleagues, with an educational aleja from [facility]. LESLY-7 Assessment Billing LESLY-7 Assessment Tool: LESLY-7 Assessment 11522 Review of Systems Const Denies chills and Denies fever(s) ENT Denies epistaxis and Denies nasal discharge Card Denies chest pain Resp Denies chest congestion, Denies cough and Denies hemoptysis GI Denies diarrhea and Denies nausea Skin/Breast Denies rash Neuro Reports no additional complaints Psych Reports no additional complaints Endo Reports no additional complaints Physical exam (Primary Care) Vital Signs: Last Vital Signs Pulse 89 04/23/24 15:10 BP 112/72 04/23/24 15:10 Pulse Ox 96 04/23/24 15:10 Oxygen Delivery Method Room Air 04/23/24 15:10 BMI result Body Mass Index 27.3 Tobacco/Smoking Status: Tobacco use Status Tobacco use date assessed 04/23/24 04/23/24 15:11 Patient Tobacco Use Status Never used Tobacco 04/23/24 15:11 e-Cigarette/Vaping Use Never Used 04/23/24 15:11 PHQ-9: PHQ-9 Score PHQ-9: Total score 6 04/23/24 15:16 Depression Screening Interpretation: Negative Thrive Assessment: Date of Thrive Assessment Date Thrive assessed 04/23/24 04/23/24 15:16 Currently or been in a relationship where the following occur: No concerns reported Const General: cooperative, comfortable and no acute distress Orientation/consciousness: patient oriented x3 HENMT Head: Yes normocephalic Eyes General: appearance normal, both eyes and all related structures Neck Neck: Yes supple Resp Effort & Inspection: normal respiratory effort, no cough and no stridor Cardio Rhythm: regular rhythm Heart sounds: S1 normal heart sound present and S2 normal heart sound present Skin General skin exam: turgor normal Neuro General: patient oriented x3, tone normal and moves all extremities Extrem Right lower extremity: no edema Left lower extremity: no edema Assessment and Plan Assessment & Plan (1) Anemia: Code(s): D64.9 - Anemia, unspecified Qualifiers: Anemia type: iron deficiency Iron deficiency anemia type: chronic blood loss Qualified Code(s): D50.0 - Iron deficiency anemia secondary to blood loss (chronic) (2) Asthma, moderate persistent: Code(s): J45.40 - Moderate persistent asthma, uncomplicated Qualifiers: Asthma complication type: with status asthmaticus Qualified Code(s): J45.42 - Moderate persistent asthma with status asthmaticus (3) Low mean corpuscular volume (MCV): Code(s): R71.8 - Other abnormality of red blood cells (4) GERD (gastroesophageal reflux disease): Code(s): K21.9 - Gastro-esophageal reflux disease without esophagitis Qualifiers: Esophagitis presence: without esophagitis Qualified Code(s): K21.9 - Gastro-esophageal reflux disease without esophagitis (5) Anxiety, generalized: Comment: Stable, patient is off fluoxetine Code(s): F41.1 - Generalized anxiety disorder Plan Patient is a 54-year-old female , patient was able to wean herself off fluoxet ine and is doing well now do not have anxiety She also stopped taking amitriptyline that she was taking for migraine headaches. GERD is stable with omeprazole Asthma is stable with Advair and albuterol as needed Patient wanted dietary instructions to lose some weight We had a detailed discussion regarding calorie count and eating healthy I will also book her appointment with the dietitian. Last time she had labs she was anemic due to heavy menstrual cycles She is now have IUD and heavy bleeding has stopped She also has stopped taking iron supplement. Orders: Orders Ferritin Today D64.9 - Anemia, unspecified, F41.1 - Generalized anxiety disorder, J45.42 - Moderate persistent asthma with status asthmaticus, K21.9 - Gastro-esophageal reflux disease without esophagitis, R20.2 - Paresthesia of skin, R71.8 - Other abnormality of red blood cells Comprehensive Met. Panel Today D64.9 - Anemia, unspecified, F41.1 - Generalized anxiety disorder, K21.9 - Gastro-esophageal reflux disease without esophagitis, R20.2 - Paresthesia of skin, R71.8 - Other abnormality of red blood cells Vitamin B12 Today D64.9 - Anemia, unspecified, F41.1 - Generalized anxiety disorder, K21.9 - Gastro-esophageal reflux disease without esophagitis, R20.2 - Paresthesia of skin, R71.8 - Other abnormality of red blood cells Folate Today D64.9 - Anemia, unspecified, F41.1 - Generalized anxiety disorder, K21.9 - Gastro-esophageal reflux disease without esophagitis, R20.2 - Paresthesia of skin, R71.8 - Other abnormality of red blood cells Complete Blood Count Auto Diff Today D64.9 - Anemia, unspecified, F41.1 - Generalized anxiety disorder, K21.9 - Gastro-esophageal reflux disease without esophagitis, R20.2 - Paresthesia of skin, R71.8 - Other abnormality of red blood cells Vitamin D 25-OH (D2 and D3) Today D64.9 - Anemia, unspecified, F41.1 - Generalized anxiety disorder, K21.9 - Gastro-esophageal reflux disease without esophagitis, R20.2 - Paresthesia of skin, R71.8 - Other abnormality of red blood cells Coding Level of Care Code Est Pt Level 4 (77883) Diagnoses Iron deficiency anemia due to chronic blood loss D50.0 Anemia type: iron deficiency Iron deficiency anemia type: chronic blood loss Moderate persistent asthma with status asthmaticus J45.42 Asthma complication type: with status asthmaticus Low mean corpuscular volume (MCV) R71.8 Gastroesophageal reflux disease without esophagitis K21.9 Esophagitis presence: without esophagitis Anxiety, generalized F41.1 Additional Codes LESLY-7 Assessment Billing - LESLY-7 Assessment Tool: LESLY-7 Assessment 23874 ([id number])
== END 2024-04-23 15:42 | disposition home or self-care (01) ==
PROVIDERS: PCP Internal Medicine; Visit Provider Internal Medicine
DX: D50.0 Iron deficiency anemia secondary to blood loss (chronic) (principal); J45.42 Moderate persistent asthma with status asthmaticus; K21.9 Gastro-esophageal reflux disease without esophagitis; F41.1 Generalized anxiety disorder

== ENCOUNTER → 2024-04-23 15:08 | Outpatient (BNVA) | payer OTHER, SELFPAY | PROVIDERS: PCP Internal Medicine; Visit Provider Internal Medicine | DX: D50.0 Iron deficiency anemia secondary to blood loss (chronic) (principal); J45.42 Moderate persistent asthma with status asthmaticus; K21.9 Gastro-esophageal reflux disease without esophagitis; F41.1 Generalized anxiety disorder; Z79.899 Other long term (current) drug therapy | CPT/HCPCS: 96127 ==

== ENCOUNTER 2024-04-25 10:23 | Outpatient (REF) | payer OTHER, SELFPAY ==
[2024-04-25 13:31] LABS: MANUAL DIFF FLAG NO
[2024-04-25 13:42] LABS: Basophils Percent Auto 0.4 % (0-2); Eosinophils Absolute Auto 0.1 X10*3/uL (0.0-0.4); Eosinophils Percent Auto 1.7 % (0-4); Hematocrit 43.3 % (37.0-47.0); Hemoglobin 14.8 g/dl (12.0-16.0); Imm Gran Abs Auto 0.05 X10*3/uL (0.00-0.03); Imm Gran Pct Auto 0.7 % (0.0-0.4); Lymphocytes Absolute Auto 1.9 X10*3/uL (1.2-4.9); Lymphocytes Percent Auto 24.5 % (20-40); Mean Corpuscular HGB Conc 34.2 g/dl (31.0-35.0); Mean Corpuscular Hemoglobin 29.6 pg (27.0-33.0); Mean Corpuscular Volume 86.6 fL (80.0-98.0); Mean Platelet Volume 9.6 fL (9.4-12.3); Monocytes Absolute Auto 0.6 X10*3/uL (0.1-1.2); Monocytes Percent Auto 7.9 % (2-11); Neutrophils Absolute Auto 4.9 x10*3/uL (2.0-8.3); Neutrophils Percent Auto 64.8 % (45-73); Platelet Count 335 X10*3/uL (160-400); White Blood Count 7.6 X10*3/uL (4.8-10.8)
[2024-04-25 14:06] LABS: Alanine Aminotransferase 32 U/L (0-31); Albumin Level 4.9 g/dL (3.5-5.0); Alkaline Phosphatase 117 U/L (39-117); Anion Gap 13 (12-20); Aspartate Amino Transferase 22 U/L (5-31); Bilirubin Total 0.6 mg/dL (0.0-1.0); Blood Urea Nitrogen 19 mg/dL (9-16); Calcium 10.9 mg/dL (8.4-10.2); Carbon Dioxide 28 mmol/L (22-29); Chloride 103 mmol/L (96-108); Estimated Glomerular Filt Rate > 60; Glucose Random 103 mg/dL (60-115); Potassium 4.1 mmol/L (3.3-5.1); Sodium 140 mmol/L (135-145); Total Protein 8.1 g/dL (6.5-8.0)
[2024-04-25 14:12] LABS: Ferritin 87 ng/mL (10-250)
[2024-04-25 14:31] LABS: Folate 19.2 ng/mL (> or = 4.0); Vitamin B12 538 pg/mL (200-900)
[2024-04-30 15:38] LABS: Vitamin D 25-OH, D2 <4 ng/mL; Vitamin D 25-OH, D3 58 ng/mL; Vitamin D 25-OH, Total 58 ng/mL (30-100)
== END 2024-04-25 10:24 | disposition home or self-care (01) ==
LOC: HO.HMGCLDS 10:23
PROVIDERS: PCP Internal Medicine; Visit Provider Internal Medicine
DX: R20.2 Paresthesia of skin (principal); K21.9 Gastro-esophageal reflux disease without esophagitis; F41.1 Generalized anxiety disorder; D64.9 Anemia, unspecified; J45.42 Moderate persistent asthma with status asthmaticus
CPT/HCPCS: 36415; 80053; 82306; 82607; 82728; 82746; 85025

== ENCOUNTER 2024-05-07 14:56 | Outpatient (AMB) | payer OTHER, SELFPAY ==
--- NOTE | 2024-05-07 14:59 | A.OFFVIS_ITS ---
Vital Signs 05/07/24 15:08 Height 5 ft 3 in Weight 154 lb 5.177 oz BMI 27.3 Intake Visit Reasons: IUD Check/DO NOT RS Station Detective Required: No Information Interpreted: non-clinical & clinical Patient Assessment Coordinator: Patient Assessment Coordinator Present (Kriss PEREZ) Allergies Seasonal Allergies Allergy (Unknown, Verified 04/23/24 15:10) allergies cephalexin Adverse Reaction (Mild, Verified 04/23/24 15:10) Hives HPI Comments Details: The patient is presenting for IUD check after 1 st period following IUD insertion. The patient has no complaints. [facility] Medical History Asthma, moderate persistent Urinary tract infection Itching Encounter for general adult medical examination with abnormal findings Dysfunctional uterine bleeding Anxiety, generalized Mood disorder PVC (premature ventricular contraction) Chronic GERD Surgical History History of esophagogastroduodenoscopy (EGD) Hx of tubal ligation History of bunionectomy History of tonsillectomy History of section Family History Father Colon cancer Mother Lung cancer Brother No problems noted. Brother No problems noted. Son No problems noted. Daughter No problems noted. Daughter No problems noted. Daughter No problems noted. Other Mental health disorder Substance use disorder Social History Housing: House Alcohol intake: current Alcohol intake frequency: does not drink Patient Tobacco Use Status: Never used Tobacco e-Cigarette/Vaping Use: Never Used Current occupational status: employed Cognitive needs: No Hearing needs: No Vision needs: Yes Review of Systems Const All systems reviewed & are unremarkable except as noted in HPI and below Physical Exam General: Yes no CVA tenderness External Female Exam: normal external appearance and normal appearance of the urethra Speculum Exam - Vagina: normal appearance of the vagina, normal palpation, no lesions and no masses Speculum Exam - Cervix: normal appearance of the cervix, normal palpation, no lesions, no masses, nontender and Other cervical findings present (IUD string seen) Bimanual exam- vagina & uterus: normal bimanual exam, normal palpation, uterine size normal, normal palpation, uterine shape normal, No Cervical tenderness present and non-tender Bimanual Exam- Adnexa, other: normal adnexae Back/Spine/Pelvis Back: no CVA tenderness Assessment & Plan Assessment & Plan (1) IUD check up: Code(s): Z30.431 - Encounter for routine checking of intrauterine contraceptive device Category: Medical Plan: UPT done in the office was negative. Discussed with the patient the finding on physical exam, IUD string in place, the patient was reassured. Instructions given to patient to call in case of temperature above 100.4, severe cramping/pelvic pain, abnormal discharge or abnormal uterine bleeding or if she misses her menstrual cycle. Otherwise follow-up at her annual exam appointment. All questions answered, the patient verbalized understanding. Coding Level of Care Code Est Pt Level 3 (12063) Diagnoses IUD check up Z30.431
[2024-05-07 15:08] VITALS: BMI 27.3
== END 2024-05-07 15:09 | disposition home or self-care (01) ==
PROVIDERS: PCP Internal Medicine; Visit Provider Obstetrics & Gynecology
DX: Z30.431 Encounter for routine checking of intrauterine contraceptive device (principal); Z32.02 Encounter for pregnancy test, result negative
CPT/HCPCS: 99213

== ENCOUNTER → 2024-05-07 14:56 | Outpatient (BNVA) | payer OTHER, SELFPAY | PROVIDERS: PCP Internal Medicine; Visit Provider Obstetrics & Gynecology | DX: Z30.431 Encounter for routine checking of intrauterine contraceptive device (principal) | CPT/HCPCS: 81025 ==

== ENCOUNTER → 2024-05-17 10:00 | Outpatient (BNVA) | payer OTHER, SELFPAY | PROVIDERS: PCP Internal Medicine ==

== ENCOUNTER 2024-05-28 15:17 | Outpatient (REF) | payer OTHER, SELFPAY | END 2024-05-28 15:18 | disposition home or self-care (01) | LOC: HO.LNP 15:17 | PROVIDERS: PCP Internal Medicine; Visit Provider Obstetrics & Gynecology | DX: N93.9 Abnormal uterine and vaginal bleeding, unspecified (principal); Z97.5 Presence of (intrauterine) contraceptive device | CPT/HCPCS: 58100; 81025; 88305 ==

== ENCOUNTER 2024-05-28 15:17 | Outpatient (AMB) | payer OTHER, SELFPAY ==
--- NOTE | 2024-05-28 15:33 | MHC.OFFVIS ---
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 FSH/LH in the menopausal range Proliferative endometrium on EMB 12/28 Mirena IUD inserted 01/28 PFSH Medical History Asthma, moderate persistent Urinary tract infection Itching Encounter for general adult medical examination with abnormal findings Dysfunctional uterine bleeding Anxiety, generalized Mood disorder PVC (premature ventricular contraction) Chronic GERD Surgical History History of esophagogastroduodenoscopy (EGD) Hx of tubal ligation History of bunionectomy History of tonsillectomy History of section Family History Father Colon cancer Mother Lung cancer Brother No problems noted. Brother No problems noted. Son No problems noted. Daughter No problems noted. Daughter No problems noted. Daughter No problems noted. Other Mental health disorder Substance use disorder Social History Housing: House Alcohol intake: current Alcohol intake frequency: does not drink Patient Tobacco Use Status: Never used Tobacco e-Cigarette/Vaping Use: Never Used Current occupational status: employed Cognitive needs: No Hearing needs: No Vision needs: Yes Review of Systems Const All systems reviewed & are unremarkable except as noted in HPI and below Reports as per HPI and Reports no additional complaints GI Reports no additional complaints Reports no additional complaints Physical Exam Vital Signs: BMI result Body Mass Index 27.3 Office Procedures Endometrial Biopsy Details: The patient was counseled regarding the indication and benefits of endometrial sampling to rule out endometrial pathology including not limited to endometrial hyperplasia or endometrial cancer and others; The alternatives (Either do nothing vs. hysteroscopy D&C) & the risks were discussed with the patient including but not limited: pain, uterine perforation, bleeding, infection, possible injury to bladder, bowel, ureter, possible need for blood transfusion with all its possible risks. The patient verbalized understanding all questions answered and signed consent. The patient was placed into the dorsal lithotomy position; a speculum was inserted in the vagina. Using aseptic technique for the procedure, the cervix was cleansed with Betadine. The anterior lip of the cervix was grasped with a single tooth tenaculum. The uterus was sounded to 7 cm with a 4 mm Pipelle was used. Tissues samples were obtained and placed in formalin, in a patient labeled container and sent to the pathology department. At the end of the procedure, there was minimal bleeding noted The patient tolerated the procedure well and was discharged in good condition with the following instructions: Nothing in the vagina until the bleeding stops. No sex until the bleeding stops, to call if any of the following occurs: fever (>100.4), flu-like symptoms, abdominal pain, heavy bleeding, four smelling vaginal discharge. The patient was instructed to schedule a Follow up appointment in 2 weeks to discuss pathology results of the biopsy and treatment options. This note was generated with a voice recognition program. Some errors may have been overlooked during the review of this note. Sometimes these errors may affect the content or meaning of a given sentence. [id number] Biopsy Assessment & Plan Assessment & Plan (1) Abnormal uterine bleeding (AUB): Comment: FSH/LH in the menopausal range Proliferative endometrium on EMB 12/28 Mirena IUD inserted 01/28 Code(s): N93.9 - Abnormal uterine and vaginal bleeding, unspecified Category: Medical Plan: EMB done, see procedure note Orders: Orders AMB Endometrial Biopsy Today N93.9 - Abnormal uterine and vaginal bleeding, unspecified Coding Level of Care Code Procedure Only Diagnoses Abnormal uterine bleeding (AUB) N93.9 CPT Codes Endometrial Biopsy - CPT: 36553-[id number] Biopsy ([id number])
[2024-05-28 15:36] VITALS: BMI 27.3
== END 2024-05-28 15:56 | disposition home or self-care (01) ==
LOC: HO.HWS 15:17
PROVIDERS: PCP Internal Medicine; Visit Provider Obstetrics & Gynecology
DX: N93.9 Abnormal uterine and vaginal bleeding, unspecified (principal); Z32.02 Encounter for pregnancy test, result negative
CPT/HCPCS: 58100

== ENCOUNTER 2024-06-19 09:37 | Outpatient (AMB) | payer OTHER, SELFPAY ==
[2024-06-19 09:38] VITALS: BP 118/78; PULSE 85; O2SAT 100; BMI 26.4
--- NOTE | 2024-06-19 09:38 | A.OFFPC_ITS ---
Vital Signs 06/19/24 09:38 Height 5 ft 3 in Weight 149 lb BMI 26.4 BP 118/78 Blood Pressure Location Lt brachial Position Sitting Pulse 85 Pulse Source Pulse Oximeter Pulse Oximetry (%) 100 Oxygen Delivery Method Room Air Intake Visit Reasons: 1M F/U Allergies Seasonal Allergies Allergy (Unknown, Verified 06/19/24 09:40) allergies cephalexin Adverse Reaction (Mild, Verified 06/19/24 09:40) Hives Medication List - Last Reconciled 06/19/24 by Rory Nagy MD albuterol sulfate 90 mcg/actuation 2 puffs PO Q4H PRN 90 days albuterol sulfate 0.63 mg (3 mL) inhalation QID PRN fluticasone propion-salmeterol 500-50 mcg/dose (Wixela Inhub) 1 inh inhalation Q12H multivitamin 1 tab PO DAILY omeprazole 20 mg PO DAILY 90 days phentermine 15 mg PO DAILY Tobacco use date assessed: 06/19/24 Dental Screening Dental Screen Date: 04/23/24 HPI 1M F/U HPI Details Patient is a 54-year-old female came in today for 4 week follow-up appointment on weight She was able to lose 5 lb since seen last 1 month ago She is tolerating medication no side effects Refills sent Patient is also having shortness a breath for past 2 days Usually she uses updraft machine but she ran out of the medication Which I have refilled along with prednisone for 5 days She does not have any fever chills sore throat nausea or vomiting there is mild headache present Patient says that she does not feel sick other than feeling shortness a breath She is already using Advair inhaler regularly [facility] Medical History Asthma, moderate persistent Urinary tract infection Itching Encounter for general adult medical examination with abnormal findings Dysfunctional uterine bleeding Anxiety, generalized Mood disorder PVC (premature ventricular contraction) Chronic GERD Surgical History History of esophagogastroduodenoscopy (EGD) Hx of tubal ligation History of bunionectomy History of tonsillectomy History of section Family History Father Colon cancer Mother Lung cancer Brother No problems noted. Brother No problems noted. Son No problems noted. Daughter No problems noted. Daughter No problems noted. Daughter No problems noted. Other Mental health disorder Substance use disorder Social History Housing: House Alcohol intake: current Alcohol intake frequency: does not drink Patient Tobacco Use Status: Never used Tobacco e-Cigarette/Vaping Use: Never Used service: No Current occupational status: employed Cognitive needs: No Hearing needs: No Vision needs: Yes Questionnaire Thrive Questionnaire Date Thrive assessed: 04/23/24 I am a: Patient What is your living situation today?: I have a steady place to live Within the past 12 months, did the food you bought not last and you didn't have the money to get more?: I choose not to answer this question Within the past 12 months, did you worry whether your food would run out before you got money to buy more?: I choose not to answer this question Do you have trouble paying for medicines?: I choose not to answer this question Do you have trouble getting transportation to medical appointments?: No Do you have trouble paying your heating and electricity bill?: No Do you have trouble taking care of your child, family member or friend?: No Do you have trouble with day-to-day activities such as bathing, preparing meals, shopping, managing finances, etc.?: No Are you currently unemployed and looking for a job?: No Are you interested in more education?: I choose not to answer this question Please select the resources that you would like help with: None Currently or been in a relationship where the following occur: No concerns reported THRIVE Score: 0 LESLY-7 AMB Questionnaire LESLY-7 Date LESLY - 7 assessed: 04/23/24 Source: Developed by Drs. Roberto Dennis, India Bhatt, Vikash Hoffman and colleagues, with an educational aleja from [facility]. Review of Systems Const Denies chills and Denies fever(s) ENT Denies epistaxis and Denies nasal discharge Card Denies chest pain Resp Denies chest congestion and Denies hemoptysis GI Denies diarrhea and Denies nausea Skin/Breast Denies rash Neuro Reports no additional complaints Psych Reports no additional complaints Endo Reports no additional complaints Physical exam (Primary Care) Vital Signs: Last Vital Signs Pulse 85 11/13/24 09:38 BP 118/78 06/19/24 09:38 Pulse Ox 100 06/19/24 09:38 Oxygen Delivery Method Room Air 06/19/24 09:38 BMI result Body Mass Index 26.4 Tobacco/Smoking Status: Tobacco use Status Tobacco use date assessed 06/19/24 06/19/24 09:41 Patient Tobacco Use Status Never used Tobacco 06/19/24 09:41 e-Cigarette/Vaping Use Never Used 06/19/24 09:41 Thrive Assessment: Date of Thrive Assessment Date Thrive assessed 04/23/24 06/19/24 09:41 Currently or been in a relationship where the following occur: No concerns reported Const Other: Coughing when dogs or laughs able to finish sentences without distress General: cooperative, comfortable and no acute distress Orientation/consciousness: patient oriented x3 HENMT Head: Yes normocephalic Eyes General: appearance normal, both eyes and all related structures Neck Neck: Yes supple Resp Effort & Inspection: normal respiratory effort, no cough and no stridor Cardio Rhythm: regular rhythm Heart sounds: S1 normal heart sound present and S2 normal heart sound present Skin General skin exam: turgor normal Neuro General: patient oriented x3, tone normal and moves all extremities Extrem Right lower extremity: no edema Left lower extremity: no edema Coding Level of Care Code Est Pt Level 4 (54083) Diagnoses Moderate persistent asthma with exacerbation J45.41 Asthma severity: moderate Asthma persistence: persistent Overweight (BMI 25.0-29.9) E66.3 Assessment & Plan Assessment & Plan (1) Exacerbation of asthma: Code(s): J45.901 - Unspecified asthma with (acute) exacerbation Category: Medical Qualifiers: Asthma severity: moderate Asthma persistence: persistent Qualified Code(s): J45.41 - Moderate persistent asthma with (acute) exacerbation (2) Overweight (BMI 25.0-29.9): Code(s): E66.3 - Overweight Category: Medical Plan Patient is a 54-year-old female came in today for 4 week follow-up appointment on weight She was able to lose 5 lb since seen last 1 month ago She is tolerating medication no side effects Refills sent Patient is also having shortness a breath for past 2 days Usually she uses [email or web address] machine but she ran out of the medication Which I have refilled along with prednisone for 5 days She does not have any fever chills sore throat nausea or vomiting there is mild headache present Patient says that she does not feel sick other than feeling shortness a breath She is already using Advair inhaler regularly Medications: New prednisone 20 mg PO DAILY 5 tabs 0RF 5 days Refilled albuterol sulfate 0.63 mg (3 mL) inhalation QID PRN 90 mL 0RF shortness of breath or wheezing phentermine must administer 2 hours after breakfast 15 mg PO DAILY 30 caps 0RF
== END 2024-06-19 10:04 | disposition home or self-care (01) ==
PROVIDERS: PCP Internal Medicine; Visit Provider Internal Medicine
DX: J45.41 Moderate persistent asthma with (acute) exacerbation (principal); E66.3 Overweight

== ENCOUNTER → 2024-06-19 09:37 | Outpatient (BNVA) | payer OTHER, SELFPAY | PROVIDERS: PCP Internal Medicine; Visit Provider Internal Medicine ==

== ENCOUNTER 2024-07-11 15:18 | Outpatient (AMB) | payer OTHER, SELFPAY ==
[2024-07-11 15:28] VITALS: BP 118/78
--- NOTE | 2024-07-11 15:28 | A.OFFVIS_ITS ---
Vital Signs 07/11/24 15:28 BP 118/78 Intake Visit Reasons: EMB Results Supervisor Treating And Pumping: Supervisor Treating And Pumping Present (Radha ) Accompanied by: Self / Same As Patient Allergies Seasonal Allergies Allergy (Unknown, Verified 07/11/24 15:28) allergies cephalexin Adverse Reaction (Mild, Verified 07/11/24 15:28) Hives HPI Comments Details: The patient is presenting after endometrial biopsy. The patient has no complaints, no vaginal bleeding, no feverishness chills or abdominal pain. The endometrial biopsy pathology report showed the following: Endometrium, biopsy: Benign endometrium with atrophic glands and decidual stromal change consistent with progestin effect, and focal breakdown; no atypia or carcinoma. [facility] Medical History Asthma, moderate persistent Urinary tract infection Itching Encounter for general adult medical examination with abnormal findings Dysfunctional uterine bleeding Anxiety, generalized Mood disorder PVC (premature ventricular contraction) Chronic GERD Surgical History History of esophagogastroduodenoscopy (EGD) Hx of tubal ligation History of bunionectomy History of tonsillectomy History of section Family History Father Colon cancer Mother Lung cancer Brother No problems noted. Brother No problems noted. Son No problems noted. Daughter No problems noted. Daughter No problems noted. Daughter No problems noted. Other Mental health disorder Substance use disorder Social History Housing: House Alcohol intake: current Alcohol intake frequency: does not drink Patient Tobacco Use Status: Never used Tobacco e-Cigarette/Vaping Use: Never Used service: No Current occupational status: employed Cognitive needs: No Hearing needs: No Vision needs: Yes Review of Systems Const All systems reviewed & are unremarkable except as noted in HPI and below Reports as per HPI and Reports no additional complaints GI Reports no additional complaints Reports no additional complaints Physical Exam Vital Signs: Last Vital Signs BP 118/78 07/11/24 15:28 Assessment & Plan Assessment & Plan (1) Abnormal uterine bleeding (AUB): Comment: FSH/LH in the menopausal range Proliferative endometrium on EMB 12/28 Mirena IUD inserted 01/28 05/30 EMB benign endometrium Code(s): N93.9 - Abnormal uterine and vaginal bleeding, unspecified Category: Medical Plan: Discussed with the patient the results the endometrial biopsy, recommended repeat EMB in 4 months. Instructions given the patient to schedule endometrial biopsy appointment and to call in case of recurrence of abnormal bleeding. All questions answered, the patient verbalized understanding Coding Level of Care Code Est Pt Level 3 (33552) Diagnoses Abnormal uterine bleeding (AUB) N93.9
== END 2024-07-11 15:42 | disposition home or self-care (01) ==
LOC: HO.HWS 15:18
PROVIDERS: PCP Internal Medicine; Visit Provider Obstetrics & Gynecology
DX: N93.9 Abnormal uterine and vaginal bleeding, unspecified (principal)
CPT/HCPCS: 99213

== ENCOUNTER 2024-07-17 09:09 | Outpatient (AMB) | payer OTHER, SELFPAY ==
--- NOTE | 2024-07-17 09:20 | MHC.PC.OV ---
Vital Signs 07/17/24 09:22 Height 5 ft 3 in Weight 144 lb 4 oz BMI 25.5 BP 112/76 Blood Pressure Location Lt brachial Position Sitting Pulse 86 Pulse Source Pulse Oximeter Pulse Oximetry (%) 99 Oxygen Delivery Method Room Air Intake Visit Reasons: 4 week follow up Allergies Seasonal Allergies Allergy (Unknown, Verified 07/17/24 09:26) allergies cephalexin Adverse Reaction (Mild, Verified 07/17/24 09:26) Hives Medication List - Last Reconciled 07/17/24 by Rory Nagy MD albuterol sulfate 90 mcg/actuation 2 puffs PO Q4H PRN 90 days albuterol sulfate 0.63 mg (3 mL) inhalation QID PRN fluticasone propion-salmeterol 500-50 mcg/dose (Wixela Inhub) 1 inh inhalation Q12H multivitamin 1 tab PO DAILY omeprazole 20 mg PO DAILY 90 days phentermine 15 mg PO DAILY Tobacco use date assessed: 07/17/24 Dental Screening Dental Screen Date: 07/17/24 Did you have a dental visit in the last 12 months?: Yes Did you have a dental problem in the last 6 months where you did not have access to dental care?: No Was dental information given to patient?: Patient has dentist HPI 4 week follow up HPI Details Chief Complaint Experiencing shortness of breath and persistent asthma symptoms. Assessment and Plan 54-year-old female with a history of asthma presenting with persistent asthma symptoms and concerns about potential allergies. The patient reports daily usage of Advair and frequent use of a rescue inhaler indicating poorly controlled asthma. Despite medication adherence, the patient experiences exacerbations, likely triggered by allergens, suspected to be cat dander. Patient has a background of obesity, currently monitored under a weight management regimen with phentermine, leading to significant weight reduction. Notably, there is no history of smoking, and the patient maintains a pet-friendly environment patient on 3 cats, which might contribute to symptoms. Clinical decision involves evaluating current medication effectiveness, considering alternative diagnoses such as allergic rhinitis, and ensuring appropriate referrals for specialist intervention. 1. Allergic Rhinitis Suspected Suspected allergic rhinitis potentially due to cat dander. Initiate a serum-specific IgE test for cat allergen to confirm allergies. If tests confirm, consider referral to an labor representative for potential desensitization therapy. 2. Asthma Patient's asthma remains inadequately controlled with current therapy. If patient's cat dander report came back positive she will need a referral to labor representative 3. Obesity Patient is engaged in a weight reduction program with phentermine, which has effectively lowered BMI. Encourage continued usage of phentermine with monitoring to achieve further weight loss. Set target for a BMI under 25 with ongoing weight and dietary monitoring. Diagnostic results - Serum-specific IgE test for cat allergen ordered. Problem List - Asthma - Allergic rhinitis (suspected) - Obesity Health Maintenance - Weight management plan ongoing with phentermine, current BMI 25.6. - Monitoring dietary intake and physical activity levels for weight loss. Patient Instructions - Continue daily use of Advair and use rescue inhaler as needed. - Adhere to prescribed phentermine regimen for weight loss; monitor weight regularly. - Proceed to the lab for the ordered blood test to evaluate allergy to cat dander. - Await results for allergy testing to determine further course. - Engage with the provided patient portal for communication and follow-up on reports and queries. [facility] Medical History Asthma, moderate persistent Urinary tract infection Itching Encounter for general adult medical examination with abnormal findings Dysfunctional uterine bleeding Anxiety, generalized Mood disorder PVC (premature ventricular contraction) Chronic GERD Surgical History History of esophagogastroduodenoscopy (EGD) Hx of tubal ligation History of bunionectomy History of tonsillectomy History of section Family History Father Colon cancer Mother Lung cancer Brother No problems noted. Brother No problems noted. Son No problems noted. Daughter No problems noted. Daughter No problems noted. Daughter No problems noted. Other Mental health disorder Substance use disorder Social History Housing: House Alcohol intake: current Alcohol intake frequency: does not drink Patient Tobacco Use Status: Never used Tobacco e-Cigarette/Vaping Use: Never Used service: No Current occupational status: employed Cognitive needs: No Hearing needs: No Vision needs: Yes Questionnaire Thrive Questionnaire Date Thrive assessed: 07/17/24 I am a: Patient What is your living situation today?: I have a steady place to live Within the past 12 months, did the food you bought not last and you didn't have the money to get more?: I choose not to answer this question Within the past 12 months, did you worry whether your food would run out before you got money to buy more?: I choose not to answer this question Do you have trouble paying for medicines?: I choose not to answer this question Do you have trouble getting transportation to medical appointments?: No Do you have trouble paying your heating and electricity bill?: No Do you have trouble taking care of your child, family member or friend?: No Do you have trouble with day-to-day activities such as bathing, preparing meals, shopping, managing finances, etc.?: No Are you currently unemployed and looking for a job?: No Are you interested in more education?: I choose not to answer this question Please select the resources that you would like help with: None Currently or been in a relationship where the following occur: No concerns reported THRIVE Score: 0 AUDIT C Alcohol Use Questionnaire (AUDIT-C) 1. How often do you have a drink containing alcohol?: 2-4 times a month 2. How many drinks containing alcohol do you have on a typical day when you are drinking?: 1 or 2 3. How often do you have six or more drinks on one occasion?: Never Total Score: 2 Score Reviewed/Action Taken: Yes LESLY-7 AMB Questionnaire LESLY-7 Date LESLY - 7 assessed: 04/23/24 Source: Developed by Drs. Roberto Dennis, [place] Bhtat, Vikash Hoffman and colleagues, with an educational aleja from [employer]. Review of Systems Const Denies chills and Denies fever(s) ENT Denies epistaxis and Denies nasal discharge Card Denies chest pain Resp Denies chest congestion, Denies cough and Denies hemoptysis GI Denies diarrhea and Denies nausea Skin/Breast Denies rash Neuro Reports no additional complaints Psych Reports no additional complaints Endo Reports no additional complaints Physical exam (Primary Care) Vital Signs: Last Vital Signs Pulse 86 07/17/24 09:22 BP 112/76 07/17/24 09:22 Pulse Ox 99 07/17/24 09:22 Oxygen Delivery Method Room Air 07/17/24 09:22 BMI result Body Mass Index 25.5 Tobacco/Smoking Status: Tobacco use Status Tobacco use date assessed 07/17/24 07/17/24 09:26 Patient Tobacco Use Status Never used Tobacco 07/17/24 09:21 e-Cigarette/Vaping Use Never Used 07/17/24 09:21 Thrive Assessment: Date of Thrive Assessment Date Thrive assessed 07/17/24 07/17/24 09:26 Currently or been in a relationship where the following occur: No concerns reported Const General: cooperative, comfortable and no acute distress Orientation/consciousness: patient oriented x3 HENMT Head: Yes normocephalic Eyes General: appearance normal, both eyes and all related structures Neck Neck: Yes supple Resp Effort & Inspection: normal respiratory effort, no cough and no stridor Cardio Rhythm: regular rhythm Heart sounds: S1 normal heart sound present and S2 normal heart sound present Skin General skin exam: turgor normal Neuro General: patient oriented x3, tone normal and moves all extremities Extrem Right lower extremity: no edema Left lower extremity: no edema Coding Level of Care Code Est Pt Level 4 (71317) Diagnoses Moderate persistent asthma with status asthmaticus J45.42 Asthma complication type: with status asthmaticus Cat allergies J30.81 Overweight (BMI 25.0-29.9) E66.3 Allergic rhinitis due to other allergic trigger, unspecified seasonality J30.89 Allergic rhinitis seasonality: unspecified Allergic rhinitis trigger: other Assessment & Plan Assessment & Plan (1) Asthma, moderate persistent: Code(s): J45.40 - Moderate persistent asthma, uncomplicated Category: Medical Qualifiers: Asthma complication type: with status asthmaticus Qualified Code(s): J45.42 - Moderate persistent asthma with status asthmaticus (2) Cat allergies: Code(s): J30.81 - Allergic rhinitis due to animal (cat) (dog) hair and dander Category: Medical (3) Overweight (BMI 25.0-29.9): Code(s): E66.3 - Overweight Category: Medical (4) Allergic rhinitis: Code(s): J30.9 - Allergic rhinitis, unspecified Category: Medical Qualifiers: Allergic rhinitis seasonality: unspecified Allergic rhinitis trigger: other Qualified Code(s): J30.89 - Other allergic rhinitis Plan Chief Complaint Experiencing shortness of breath and persistent asthma symptoms. Assessment and Plan 54-year-old female with a history of asthma presenting with persistent asthma symptoms and concerns about potential allergies. The patient reports daily usage of Advair and frequent use of a rescue inhaler indicating poorly controlled asthma. Despite medication adherence, the patient experiences exacerbations, likely triggered by allergens, suspected to be cat dander. Patient has a background of obesity, currently monitored under a weight management regimen with phentermine, leading to significant weight reduction. Notably, there is no history of smoking, and the patient maintains a pet-friendly environment patient on 3 cats, which might contribute to symptoms. Clinical decision involves evaluating current medication effectiveness, considering alternative diagnoses such as allergic rhinitis, and ensuring appropriate referrals for specialist intervention. 1. Allergic Rhinitis Suspected Suspected allergic rhinitis potentially due to cat dander. Initiate a serum-specific IgE test for cat allergen to confirm allergies. If tests confirm, consider referral to an labor representative for potential desensitization therapy. 2. Asthma Patient's asthma remains inadequately controlled with current therapy. If patient's cat dander report came back positive she will need a referral to labor representative 3. Obesity Patient is engaged in a weight reduction program with phentermine, which has effectively lowered BMI. Encourage continued usage of phentermine with monitoring to achieve further weight loss. Set target for a BMI under 25 with ongoing weight and dietary monitoring. Diagnostic results - Serum-specific IgE test for cat allergen ordered. Problem List - Asthma - Allergic rhinitis (suspected) - Obesity Health Maintenance - Weight management plan ongoing with phentermine, current BMI 25.6. - Monitoring dietary intake and physical activity levels for weight loss. Patient Instructions - Continue daily use of Advair and use rescue inhaler as needed. - Adhere to prescribed phentermine regimen for weight loss; monitor weight regularly. - Proceed to the lab for the ordered blood test to evaluate allergy to cat dander. - Await results for allergy testing to determine further course. - Engage with the provided patient portal for communication and follow-up on reports and queries Orders: Orders Cat Dander (e1) IgE Today J30.81 - Allergic rhinitis due to animal (cat) (dog) hair and dander
[2024-07-17 09:22] VITALS: BP 112/76; PULSE 86; O2SAT 99; BMI 25.5
== END 2024-07-17 10:49 | disposition home or self-care (01) ==
PROVIDERS: PCP Internal Medicine; Visit Provider Internal Medicine
DX: J45.42 Moderate persistent asthma with status asthmaticus (principal); J30.81 Allergic rhinitis due to animal (cat) (dog) hair and dander; E66.3 Overweight; J30.89 Other allergic rhinitis

== ENCOUNTER 2024-07-17 09:09 | Outpatient (REF) | payer OTHER, SELFPAY ==
[2024-07-19 20:08] LABS: Class Cat Dander 6; E001 - IgE Cat Dander >100 kU/L
== END 2024-07-17 09:10 | disposition home or self-care (01) ==
LOC: HO.HMGCLDS 09:09
PROVIDERS: PCP Internal Medicine; Visit Provider Internal Medicine
DX: J30.81 Allergic rhinitis due to animal (cat) (dog) hair and dander (principal)
CPT/HCPCS: 36415; 86003

== ENCOUNTER 2024-11-05 15:23 | Outpatient (AMB) | payer OTHER, SELFPAY ==
[2024-11-05 15:29] VITALS: BP 116/72; PULSE 84; O2SAT 98; BMI 23.5
--- NOTE | 2024-11-05 15:29 | A.OFFPC_ITS ---
Vital Signs 11/05/24 15:29 Height 5 ft 3 in Weight 132 lb 8 oz BMI 23.5 BP 116/72 Blood Pressure Location Rt brachial Position Sitting Pulse 84 Pulse Source Pulse Oximeter Pulse Oximetry (%) 98 Oxygen Delivery Method Room Air Intake Visit Reasons: Annual PE Allergies Seasonal Allergies Allergy (Unknown, Verified 11/05/24 15:31) allergies cephalexin Adverse Reaction (Mild, Verified 11/05/24 15:31) Hives Medication List - Last Reconciled 11/05/24 by Rory Nagy MD albuterol sulfate 0.63 mg (3 mL) inhalation QID PRN albuterol sulfate 90 mcg/actuation 2 puffs PO Q4H PRN 90 days fluticasone propion-salmeterol 500-50 mcg/dose (Wixela Inhub) 1 inh inhalation Q12H multivitamin 1 tab PO DAILY omeprazole 20 mg PO DAILY 90 days phentermine 15 mg PO DAILY topiramate 25 mg PO BEDTIME Tobacco use date assessed: 11/05/24 Dental Screening Dental Screen Date: 11/05/24 Did you have a dental visit in the last 12 months?: Yes Did you have a dental problem in the last 6 months where you did not have access to dental care?: No Was dental information given to patient?: Patient has dentist HPI Annual PE HPI Details Patient is a 54-year-old female came in today for physical examination Pap smear through [facility] Colonoscopy was at age 50 at [facility] because of family history of colon cancer next 1 will be in 2025 Mammogram up-to-date Anxiety is stable taking Topamax which is helping GERD is stable and headache is stable patient is taking all her medications Medication list reviewed Asthma is not controlled, patient is taking Wixela I have adjusted the dose of Wixela And still using albuterol daily I have added montelukast, it will help her with asthma and allergies Lab order placed to be done fasting - Chronic migraines are managed with Top iramate, which also aids in mood stabilization and improves sleep quality. - Menorrhagia managed through insertion of an IUD, which successfully resolved vaginal bleeding for several months. 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 stress due to managing multiple f amily responsibilities and work Diagnostic results - Previous ultrasound (December last year) wi th no significant findings Patient Instructions - Continue medications as prescribed: To piramate, Montelukast, Advair, and Omeprazole - Schedule mammogram through OBGYN at [facility] - Monitor asthma symptoms and ensure tig ht environmental control at home - Schedule routine follow-up and blood t ests as advised - Take Montelukast in the morning; monit or for cough as a side effect and report if it occurs Review of Systems - General: No fever no chills - Neurological: No headaches no dizzin ess - Ear nose throat: No sore throat no hearing difficulty no ear pain - Cardiovascular: No syncope, no chest pain, no palpitations - Gastrointestinal: No nausea vomiting or diarrhea - Endocrine: No polyuria polydipsia no heat intolerance - Genitourinary: No dysuria - Skin: No new complaints Physical Exam General: Cooperative, healthy appearing, comfortable, no acute distress Orientation: Patient oriented x3 Head: Normal to inspection Ears: Within normal limit visually Nose: Normal external nose present Face and sinus: Normal facial exam Eyes: Appearance normal, extraocular movement intact pupils reactive Neck: Normal visual inspection and supple Respiratory: Normal respiratory effort and able to speak in complete sentences. Clear to auscultation, no stridor Cardiovascular: S1 and S2 RRR Breast exam benign GI: Normal to inspection. Soft to palpation and nontender Skin: Turgor normal, no acute findings Neuro: Patient oriented x3, motor sensory intact, balance intact, tandem pass Extremities: Normal to inspection [facility] Medical History Encounter for general adult medical examination with abnormal findings Asthma, moderate persistent Urinary tract infection Itching Dysfunctional uterine bleeding Anxiety, generalized Mood disorder PVC (premature ventricular contraction) Chronic GERD Surgical History History of esophagogastroduodenoscopy (EGD) Hx of tubal ligation History of bunionectomy History of tonsillectomy History of section Family History Father Colon cancer Mother Lung cancer Brother No problems noted. Brother No problems noted. Son No problems noted. Daughter No problems noted. Daughter No problems noted. Daughter No problems noted. Other Mental health disorder Substance use disorder Social History Housing: House Alcohol intake: current Alcohol intake frequency: does not drink Patient Tobacco Use Status: Never used Tobacco e-Cigarette/Vaping Use: Never Used service: No Current occupational status: employed Cognitive needs: No Hearing needs: No Vision needs: Yes Questionnaire PHQ-9 Over the last 2 weeks, how often have you been bothered by any of the following problems? 1. Little interest or pleasure in doing things: several days 2. Feeling down, depressed, or hopeless: several days 3. Trouble falling or staying asleep, or sleeping too much: several days 4. Feeling tired or having little energy: several days 5. Poor appetite or overeating: not at all 6. Feeling bad about yourself - or that you are a failure or have let yourself or your family down: not at all 7. Trouble concentrating on things, such as reading the newspaper or watching television: not at all 8. Moving or speaking so slowly that other people could have noticed. Or the opposite - being so fidgety or restless that you have been moving around a lot more than usual: several days 9. Thoughts that you would be better off or of hurting yourself in some way: not at all Total score: 5 Depression Screening Interpretation: Negative Depression Screening Done: Yes 89932 - PHQ-9 Billing: Yes Source: Developed by Drs. Roberto Dennis, India Bhatt, Vikash Hoffman and colleagues, with an educational aleja from [employer]. Thrive Questionnaire Date Thrive assessed: 11/05/24 I am a: Patient What is your living situation today?: I choose not to answer this question Within the past 12 months, did the food you bought not last and you didn't have the money to get more?: I choose not to answer this question Within the past 12 months, did you worry whether your food would run out before you got money to buy more?: I choose not to answer this question Do you have trouble paying for medicines?: I choose not to answer this question Do you have trouble getting transportation to medical appointments?: I choose not to answer this question Do you have trouble paying your heating and electricity bill?: I choose not to answer this question Do you have trouble taking care of your child, family member or friend?: I choose not to answer this question Do you have trouble with day-to-day activities such as bathing, preparing meals, shopping, managing finances, etc.?: No Are you currently unemployed and looking for a job?: No Are you interested in more education?: No Please select the resources that you would like help with: None Currently or been in a relationship where the following occur: No concerns reported THRIVE Score: 0 AUDIT C Alcohol Use Questionnaire (AUDIT-C) 1. How often do you have a drink containing alcohol?: Monthly or less 2. How many drinks containing alcohol do you have on a typical day when you are drinking?: 1 or 2 3. How often do you have six or more drinks on one occasion?: Never Total Score: 1 Score Reviewed/Action Taken: Yes LESLY-7 AMB Questionnaire LESLY-7 Date LESLY - 7 assessed: 11/05/24 Feeling nervous, anxious, or on edge: 1 = Several days Not being able to stop or control worryin = Several days Worrying too much about different things: 1 = Several days Trouble relaxin = Several days Being so restless that it is hard to sit still: 1 = Several days Becoming easily annoyed or irritable: 1 = Several days Feeling afraid as if something awful might happen: 1 = Several days Total LESLY-7 score (0-4 normal; 5-9 mild; 10-14 moderate; 15-21 severe): 7 Source: Developed by Drs. Roberto Dennis, India Bhatt, Vikash Hoffman and colleagues, with an educational aleja from [employer]. LESLY-7 Assessment Billing LESLY-7 Assessment Tool: LESLY-7 Assessment 91026 Physical exam (Primary Care) Vital Signs: Last Vital Signs BP 116/72 11/05/24 15:29 Tobacco/Smoking Status: Tobacco use Status Tobacco use date assessed 07/17/24 07/17/24 09:26 Patient Tobacco Use Status Never used Tobacco 07/17/24 09:21 e-Cigarette/Vaping Use Never Used 07/17/24 09:21 Depression Screening Interpretation: Negative Thrive Assessment: Date of Thrive Assessment Date Thrive assessed 07/17/24 07/17/24 09:26 Currently or been in a relationship where the following occur: No concerns reported Coding Level of Care Code Est Pt Level 3 (38094) Est Pt Prev Care 40-64y(81574) Diagnoses Encounter for general adult medical examination with abnormal findings Z00.01 Allergic rhinitis due to other allergic trigger, unspecified seasonality J30.89 Allergic rhinitis seasonality: unspecified Allergic rhinitis trigger: other Cat allergies J30.81 Moderate persistent asthma with status asthmaticus J45.42 Asthma complication type: with status asthmaticus Gastroesophageal reflux disease without esophagitis K21.9 Esophagitis presence: without esophagitis Headache syndrome G44.89 Additional Codes LESLY-7 Assessment Billing - LESLY-7 Assessment Tool: LESLY-7 Assessment 98697 ([id number]) PHQ-9 - 39555 - PHQ-9 Billing: Yes ([id number]) Assessment & Plan Assessment & Plan (1) Encounter for general adult medical examination with abnormal findings: Code(s): Z00.01 - Encounter for general adult medical examination with abnormal findings Category: Medical (2) Allergic rhinitis: Code(s): J30.9 - Allergic rhinitis, unspecified Category: Medical Qualifiers: Allergic rhinitis seasonality: unspecified Allergic rhinitis trigger: other Qualified Code(s): J30.89 - Other allergic rhinitis (3) Cat allergies: Code(s): J30.81 - Allergic rhinitis due to animal (cat) (dog) hair and dander Category: Medical (4) Asthma, moderate persistent: Code(s): J45.40 - Moderate persistent asthma, uncomplicated Category: Medical Qualifiers: Asthma complication type: with status asthmaticus Qualified Code(s): J45.42 - Moderate persistent asthma with status asthmaticus (5) GERD (gastroesophageal reflux disease): Code(s): K21.9 - Gastro-esophageal reflux disease without esophagitis Category: Medical Qualifiers: Esophagitis presence: without esophagitis Qualified Code(s): K21.9 - Gastro-esophageal reflux disease without esophagitis (6) Headache syndrome: Code(s): G44.89 - Other headache syndrome Category: Medical Plan Patient is a 54-year-old female came in today for physical examination Pap smear through [facility] Colonoscopy was at age 50 at [facility] because of family history of colon cancer next 1 will be in 2025 Mammogram up-to-date Anxiety is stable taking Topamax which is helping GERD is stable and headache is stable patient is taking all her medications Medication list reviewed Asthma is not controlled, patient is taking Wixela I have adjusted the dose of Wixela And still using albuterol daily I have added montelukast, it will help her with asthma and allergies Lab order placed to be done fasting - Chronic migraines are managed with Topiramate, which also aids in mood stabilization and improves sleep quality. - Menorrhagia managed through insertion of an IUD, which successfully resolved vaginal bleeding for several months. 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 responsibilities and work Diagnostic results - Previous ultrasound (May last year) with no significant findings Patient Instructions - Continue medications as prescribed: Topiramate, Montelukast, Advair, and Omeprazole - Schedule mammogram through OBGYN at [facility] - Monitor asthma symptoms and ensure tight environmental control at home - Schedule routine follow-up and blood tests as advised - Take Montelukast in the morning; monitor for cough as a side effect and report if it occurs Orders: Orders Complete Blood Count Auto Diff Today J30.81 - Allergic rhinitis due to animal (cat) (dog) hair and dander, J30.89 - Other allergic rhinitis, J45.42 - Moderate persistent asthma with status asthmaticus, K21.9 - Gastro-esophageal reflux disease without esophagitis, Z00.01 - Encounter for general adult medical examination with abnormal findings MM tomosynthesis screening BI Today Z12.31 - Encounter for screening mammogram for malignant neoplasm of breast Comprehensive [place]. Panel Fast Today J30.81 - Allergic rhinitis due to animal (cat) (dog) hair and dander, J30.89 - Other allergic rhinitis, J45.42 - Moderate persistent asthma with status asthmaticus, K21.9 - Gastro-esophageal reflux disease without esophagitis, Z00.01 - Encounter for general adult medical examination with abnormal findings Lipid Panel Today J30.81 - Allergic rhinitis due to animal (cat) (dog) hair and dander, J30.89 - Other allergic rhinitis, J45.42 - Moderate persistent asthma with status asthmaticus, K21.9 - Gastro-esophageal reflux disease without esophagitis, Z00.01 - Encounter for general adult medical examination with abnormal findings Medications: New montelukast 10 mg PO DAILY 90 tabs 0RF Refilled omeprazole 20 mg PO DAILY 90 days 90 caps 0RF topiramate 25 mg PO BEDTIME 90 tabs 0RF Discontinued phentermine must administer 2 hours after breakfast Discontinued Reason: No Longer Medically Relevant 15 mg PO DAILY 30 caps 0RF topiramate Discontinued Reason: Order 25 mg PO BEDTIME 90 tabs 0RF
== END 2024-11-05 15:48 | disposition home or self-care (01) ==
LOC: HO.HMCC 15:24
PROVIDERS: PCP Internal Medicine; Visit Provider Internal Medicine
DX: Z00.01 Encounter for general adult medical examination with abnormal findings (principal); J30.89 Other allergic rhinitis; J30.81 Allergic rhinitis due to animal (cat) (dog) hair and dander; J45.42 Moderate persistent asthma with status asthmaticus; K21.9 Gastro-esophageal reflux disease without esophagitis; G44.89 Other headache syndrome

== ENCOUNTER → 2024-11-05 15:23 | Outpatient (BNVA) | payer OTHER, SELFPAY | PROVIDERS: PCP Internal Medicine; Visit Provider Internal Medicine | DX: Z00.01 Encounter for general adult medical examination with abnormal findings (principal); J30.89 Other allergic rhinitis; J30.81 Allergic rhinitis due to animal (cat) (dog) hair and dander; J45.42 Moderate persistent asthma with status asthmaticus; K21.9 Gastro-esophageal reflux disease without esophagitis; F41.9 Anxiety disorder, unspecified; G43.709 Chronic migraine without aura, not intractable, without status migrainosus; Z79.899 Other long term (current) drug therapy | CPT/HCPCS: 96127 ==

== ENCOUNTER 2024-11-19 07:23 | Outpatient (REF) | payer OTHER, SELFPAY ==
[2024-11-19 10:03] LABS: MANUAL DIFF FLAG NO
[2024-11-19 10:06] LABS: Basophils Percent Auto 0.4 % (0-2); Eosinophils Absolute Auto 0.2 X10*3/uL (0.0-0.4); Eosinophils Percent Auto 2.5 % (0-4); Hematocrit 42.3 % (37.0-47.0); Hemoglobin 14.8 g/dl (12.0-16.0); Imm Gran Abs Auto 0.03 X10*3/uL (0.00-0.03); Imm Gran Pct Auto 0.4 % (0.0-0.4); Lymphocytes Absolute Auto 2.2 X10*3/uL (1.2-4.9); Lymphocytes Percent Auto 29.3 % (20-40); Mean Corpuscular Hemoglobin 30.5 pg (27.0-33.0); Mean Corpuscular Volume 87.2 fL (80.0-98.0); Monocytes Absolute Auto 0.7 X10*3/uL (0.1-1.2); Monocytes Percent Auto 9.3 % (2-11); Neutrophils Absolute Auto 4.5 x10*3/uL (2.0-8.3); Neutrophils Percent Auto 58.1 % (45-73); Platelet Count 311 X10*3/uL (160-400); Red Blood Count 4.85 X10*6/uL (4.20-5.50); Red Cell Distribution Width 12.1 % (11.0-16.0); White Blood Count 7.7 X10*3/uL (4.8-10.8)
[2024-11-19 10:44] LABS: Alanine Aminotransferase 44 U/L (0-31); Albumin Level 4.4 g/dL (3.5-5.0); Alkaline Phosphatase 126 U/L (39-117); Anion Gap 10 (12-20); Aspartate Amino Transferase 29 U/L (5-31); Bilirubin Total 0.8 mg/dL (0.0-1.0); Blood Urea Nitrogen 19 mg/dL (9-16); Calcium 9.5 mg/dL (8.4-10.2); Carbon Dioxide 26 mmol/L (22-29); Chloride 107 mmol/L (96-108); Cholesterol 157 mg/dL (<200); Estimated Glomerular Filt Rate > 60; Glucose Fasting 98 mg/dL (60-99); HDL Cholesterol 40 mg/dL (>40); LDL Cholesterol Calculated 82 mg/dL (<100); Potassium 3.9 mmol/L (3.3-5.1); Sodium 139 mmol/L (135-145); Total Protein 6.8 g/dL (6.5-8.0); Triglycerides 178 mg/dL (<150)
== END 2024-11-19 07:24 | disposition home or self-care (01) ==
LOC: HO.HMGCLDS 07:23
PROVIDERS: PCP Internal Medicine; Visit Provider Internal Medicine
DX: Z00.01 Encounter for general adult medical examination with abnormal findings (principal); J30.89 Other allergic rhinitis; J30.81 Allergic rhinitis due to animal (cat) (dog) hair and dander; J45.42 Moderate persistent asthma with status asthmaticus; K21.9 Gastro-esophageal reflux disease without esophagitis
CPT/HCPCS: 36415; 80053; 80061; 85025

== ENCOUNTER 2024-11-21 08:18 | Outpatient (AMB) | payer OTHER, SELFPAY ==
--- NOTE | 2024-11-21 09:54 | A.OFFPC_ITS ---
Intake Visit Reasons: Discuss Labs Allergies Seasonal Allergies Allergy (Unknown, Verified 11/05/24 15:31) allergies cephalexin Adverse Reaction (Mild, Verified 11/05/24 15:31) Hives Medication List - Last Reconciled 11/21/24 by Rory Nagy MD albuterol sulfate 0.63 mg (3 mL) inhalation QID PRN albuterol sulfate 90 mcg/actuation 2 puffs PO Q4H PRN 90 days fluticasone propion-salmeterol 500-50 mcg/dose (Wixela Inhub) 1 inh inhalation Q12H montelukast 10 mg PO DAILY multivitamin 1 tab PO DAILY omeprazole 20 mg PO DAILY 90 days topiramate 25 mg PO BEDTIME Tobacco use date assessed: 11/05/24 Dental Screening Dental Screen Date: 11/05/24 HPI Discuss Labs HPI Details Patient's liver enzymes came back elevated especially in alkaline phosphatase Notified patient I did reviewed the previous ultrasound done few months ago which showed fatty liver At this point I would recommend that she avoid stressors like Tylenol and alcohol And try to lose some weight We will repeat the LFTs again in 2 months She has no abdominal discomfort PFSH Medical History Encounter for general adult medical examination with abnormal findings Asthma, moderate persistent Urinary tract infection Itching Dysfunctional uterine bleeding Anxiety, generalized Mood disorder PVC (premature ventricular contraction) Chronic GERD Surgical History History of esophagogastroduodenoscopy (EGD) Hx of tubal ligation History of bunionectomy History of tonsillectomy History of section Family History Father Colon cancer Mother Lung cancer Brother No problems noted. Brother No problems noted. Son No problems noted. Daughter No problems noted. Daughter No problems noted. Daughter No problems noted. Other Mental health disorder Substance use disorder Social History Housing: House Alcohol intake: current Alcohol intake frequency: does not drink Patient Tobacco Use Status: Never used Tobacco e-Cigarette/Vaping Use: Never Used service: No Current occupational status: employed Cognitive needs: No Hearing needs: No Vision needs: Yes Questionnaire Thrive Questionnaire Date Thrive assessed: 11/05/24 LESLY-7 AMB Questionnaire LESLY-7 Date LESLY - 7 assessed: 11/05/24 Source: Developed by Drs. Roberto Dennis, India Bhatt, Vikash Hoffman and colleagues, with an educational aleja from [employer]. Review of Systems Const Denies chills and Denies fever(s) ENT Denies epistaxis and Denies nasal discharge Card Denies chest pain Resp Denies chest congestion, Denies cough and Denies hemoptysis GI Denies diarrhea and Denies nausea Skin/Breast Denies rash Neuro Reports no additional complaints Psych Reports no additional complaints Endo Reports no additional complaints Physical exam (Primary Care) Tobacco/Smoking Status: Tobacco use Status Tobacco use date assessed 11/05/24 11/21/24 09:54 Patient Tobacco Use Status Never used Tobacco 11/21/24 09:54 e-Cigarette/Vaping Use Never Used 11/21/24 09:54 Thrive Assessment: Date of Thrive Assessment Date Thrive assessed 11/05/24 11/21/24 09:54 Telehealth Telehealth Telehealth Platform: [facility] Location of provider rendering services: practice address Location of patient: address on file Patient Identification confirmed using: Name, : Yes Telehealth method: video (Attempted) Patient verbally consented to treatment: Yes Patient verbally consented to billing insurance company: Yes Patient informed of any privacy concerns related to visit: Yes Minutes spent on Phone/Video with Pt.: 13 Coding Level of Care Code Tele Est Pt Level 3 (81616) Diagnoses LFT elevation R79.89 Assessment & Plan Assessment & Plan (1) LFT elevation: Code(s): R79.89 - Other specified abnormal findings of blood chemistry Category: Medical Plan Patient's liver enzymes came back elevated especially in alkaline phosphatase Notified patient I did reviewed the previous ultrasound done few months ago which showed fatty liver At this point I would recommend that she avoid stressors like Tylenol and alcohol And try to lose some weight We will repeat the LFTs again in 2 months She has no abdominal discomfor Orders: Orders Liver Panel 11/21/24 R79.89 - Other specified abnormal findings of blood chemistry
== END 2024-11-21 10:40 | disposition home or self-care (01) ==
LOC: HO.HMCC 08:18
PROVIDERS: PCP Internal Medicine; Visit Provider Internal Medicine
DX: R79.89 Other specified abnormal findings of blood chemistry (principal)

== ENCOUNTER → 2024-11-21 08:18 | Outpatient (BNVA) | payer OTHER, SELFPAY | PROVIDERS: PCP Internal Medicine; Visit Provider Internal Medicine ==

== ENCOUNTER 2024-11-27 15:38 | Outpatient (AMB) | payer OTHER, SELFPAY ==
--- NOTE | 2024-11-27 15:51 | MHC.OFFVIS ---
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 FSH/LH in the menopausal range 12/28 EMB= Proliferative endometrium 01/28 Mirena IUD inserted 05/30 EMB= benign endometrium Last co testing in 10/24 was negative Last mammogram in 10/28 was BI-RADS 1, next screening mammogram scheduled within 2 weeks Last colonoscopy was in 08/30 [facility] Medical History Encounter for general adult medical examination with abnormal findings Asthma, moderate persistent Urinary tract infection Itching Dysfunctional uterine bleeding Anxiety, generalized Mood disorder PVC (premature ventricular contraction) Chronic GERD Surgical History History of esophagogastroduodenoscopy (EGD) Hx of tubal ligation History of bunionectomy History of tonsillectomy History of section Family History Father Colon cancer Mother Lung cancer Brother No problems noted. Brother No problems noted. Son No problems noted. Daughter No problems noted. Daughter No problems noted. Daughter No problems noted. Other Mental health disorder Substance use disorder Social History Housing: House Alcohol intake: current Alcohol intake frequency: does not drink Patient Tobacco Use Status: Never used Tobacco e-Cigarette/Vaping Use: Never Used service: No Current occupational status: employed Cognitive needs: No Hearing needs: No Vision needs: Yes Review of Systems Const All systems reviewed & are unremarkable except as noted in HPI and below Card Reports as per HPI Resp Reports as per HPI GI Reports as per HPI and Reports no additional complaints Reports as per HPI Physical Exam The patient has breast exam done by her PCP Const General: cooperative, healthy appearing and comfortable Resp Effort & Inspection: normal respiratory effort Auscultation: clear to auscultation bilaterally Percussion: percussion normal Cardio Palpation: normal PMI Rate: regular rate Rhythm: regular rhythm Heart sounds: no murmurs and no rubs Peripheral pulses: Peripheral pulses 2+ throughout GI Inspection: Yes normal to inspection Palpation (GI): Soft to palpation, nontender, no guarding, not rigid and No hepatosplenomegaly present Percussion: Yes normal to percussion Auscultation: normal bowel sounds Rectal Exam - Female: deferred General: Yes bladder normal to palpation External Female Exam: No lesion Speculum Exam - Vagina: normal appearance of the vagina, normal palpation, normal vaginal discharge and not erythematous Speculum Exam - Cervix: normal appearance of the cervix and normal palpation Bimanual exam- vagina & uterus: normal bimanual exam, normal palpation, uterine size normal, bladder normal to palpation, consistency normal and normal palpation Bimanual Exam- Adnexa, other: normal adnexae, no masses and no tenderness Office Procedures Endometrial Biopsy Details: The patient was counseled regarding the indication and benefits of endometrial sampling to rule out endometrial pathology including not limited to endometrial hyperplasia or endometrial cancer and others; The alternatives (Either do nothing vs. hysteroscopy D&C) & the risks were discussed with the patient including but not limited: pain, uterine perforation, bleeding, infection, possible injury to bladder, bowel, ureter, possible need for blood transfusion with all its possible risks. The patient verbalized understanding all questions answered and signed consent. The patient was placed into the dorsal lithotomy position; a speculum was inserted in the vagina. Using aseptic technique for the procedure, the cervix was cleansed with Betadine. The anterior lip of the cervix was grasped with a single tooth tenaculum. The uterus was sounded to 7 cm with a 4 mm Pipelle was used. Tissues samples were obtained and placed in formalin, in a patient labeled container and sent to the pathology department. At the end of the procedure, there was minimal bleeding noted The patient tolerated the procedure well and was discharged in good condition with the following instructions: Nothing in the vagina until the bleeding stops. No sex until the bleeding stops, to call if any of the following occurs: fever (>100.4), flu-like symptoms, abdominal pain, heavy bleeding, four smelling vaginal discharge. The patient was instructed to schedule a Follow up appointment in 2 weeks to discuss pathology results of the biopsy and treatment options. This note was generated with a voice recognition program. Some errors may have been overlooked during the review of this note. Sometimes these errors may affect the content or meaning of a given sentence. [id number] Biopsy Assessment & Plan Assessment & Plan (1) Well woman exam: Code(s): Z01.419 - Encounter for gynecological examination (general) (routine) without abnormal findings Category: Medical Plan: Co testing done. Counseled the patient about the recommended dietary allowance of 1200 mg of Calcium & 600 IU of vitamin D. Mammogram ordered and schedule within 2 weeks. The patient was instructed to perform monthly self-breast exams and schedule annual exam in a year. All questions answered and the patient verbalized understanding. (2) Abnormal uterine bleeding (AUB): Comment: FSH/LH in the menopausal range Proliferative endometrium on EMB 12/28 Mirena IUD inserted 01/28 05/30 EMB benign endometrium Code(s): N93.9 - Abnormal uterine and vaginal bleeding, unspecified Category: Medical Plan: EMB repeated, see procedure note Instructions given the patient to call in case of any future abnormal uterine bleeding will proceed with EMB to rule out endometrial pathology. All questions answered, the patient verbalized understanding. Orders: Orders AMB Endometrial Biopsy Today N93.9 - Abnormal uterine and vaginal bleeding, unspecified Coding Level of Care Code Est Pt Level 4 (19058) Procedure Only Diagnoses Well woman exam Z01.419 Abnormal uterine bleeding (AUB) N93.9 CPT Codes Endometrial Biopsy - CPT: 42676-[id number] Biopsy ([id number])
[2024-11-27 15:58] VITALS: BMI 23.4
== END 2024-11-27 16:05 | disposition home or self-care (01) ==
LOC: HO.HWS 15:38
PROVIDERS: PCP Internal Medicine; Visit Provider Obstetrics & Gynecology
DX: Z01.419 Encounter for gynecological examination (general) (routine) without abnormal findings (principal); N93.9 Abnormal uterine and vaginal bleeding, unspecified
CPT/HCPCS: 58100; 99396; 99459

== ENCOUNTER 2024-11-27 15:38 | Outpatient (REF) | payer OTHER, SELFPAY ==
[2024-12-03 14:59] LABS: HPV Genotype 16 Negative (Negative); HPV Genotype 18 Negative (Negative); HPV High Risk Negative (Negative)
== END 2024-11-27 15:39 | disposition home or self-care (01) ==
LOC: HO.LNP 15:38
PROVIDERS: PCP Internal Medicine; Visit Provider Obstetrics & Gynecology
DX: Z01.419 Encounter for gynecological examination (general) (routine) without abnormal findings (principal); N93.9 Abnormal uterine and vaginal bleeding, unspecified
CPT/HCPCS: 58100; 87626; 88175; 88305

== ENCOUNTER 2024-12-17 12:51 | Outpatient (AMB) | payer OTHER, SELFPAY ==
[2024-12-17 13:05] VITALS: BP 112/70; PULSE 93; O2SAT 99; BMI 23.2
--- NOTE | 2024-12-17 13:05 | A.OFFPC_ITS ---
Vital Signs 12/17/24 13:05 Height 5 ft 3 in Weight 131 lb 4 oz BMI 23.2 BP 112/70 Blood Pressure Location Lt brachial Position Sitting Pulse 93 Pulse Source Pulse Oximeter Pulse Oximetry (%) 99 Oxygen Delivery Method Room Air Intake Visit Reasons: Itchy Skin Allergies Seasonal Allergies Allergy (Unknown, Verified 11/27/24 15:59) allergies cephalexin Adverse Reaction (Mild, Verified 11/27/24 15:59) Hives Medication List - Last Reconciled 12/17/24 by Rory Nagy MD albuterol sulfate 0.63 mg (3 mL) inhalation QID PRN albuterol sulfate 90 mcg/actuation 2 puffs PO Q4H PRN 90 days fluticasone propion-salmeterol 500-50 mcg/dose (Wixela Inhub) 1 inh inhalation Q12H montelukast 10 mg PO DAILY multivitamin 1 tab PO DAILY omeprazole 20 mg PO DAILY 90 days topiramate 25 mg PO BEDTIME Tobacco use date assessed: 11/05/24 Dental Screening Dental Screen Date: 11/05/24 HPI Itchy Skin HPI Details History - The patient is a 54 year old female pr esenting with elevated liver enzymes and worsening pruritus. - Worsening liver enzyme levels were not ed, with previous ultrasound in 2022 indicating fatty liver. - Patient acknowledges a history of taki ng excessive acetaminophen (up to 13 pills a week) for headaches, potentially contributing to liver stress. - Patient also reported using Hydroxycut for appetite suppression which has since been discontinued due to liver concerns. - Reports ongoing headaches despite curr ent medication with Topamax, which have been less frequent since discontinuing fluoxetine. - Discontinued fluoxetine to avoid medic ation dependency; associated anxiety symptoms including heart palpitations have since returned. - Reports persistent pruritus with some exacerbation since the onset of spring, aggravated by sun and heat exposure. - Denies significant alcohol consumption . Problem List - Elevated liver enzymes - Fatty liver (Steatosis) - Headaches - Anxiety - Pruritus (Itching) - History of fluoxetine use - Use of Acetaminophen (Tylenol) and Hyd roxycut Patient Instructions - Take hydroxyzine 25 mg at bedtime, wit h an additional dose as needed for itching or anxiety during the day. - Consider increasing Topamax dose to 50 mg to address headaches. - Avoid taking ylbq-pld-iwnoevv liver de tox supplements and focus on dietary changes to manage liver health. - Drink two glasses of room temperature water upon waking up daily. - Incorporate more fruits, vegetables, a nd home-cooked meals into the diet. - Schedule a follow-up ultrasound to mon itor liver condition. Review of Systems - General: No fever no chills - Neurological: no dizziness - Ear nose throat: No sore throat no hearing difficulty no ear pain - Cardiovascular: No syncope, no chest pain, no palpitations - Gastrointestinal: No nausea vomiting or diarrhea - Endocrine: No polyuria polydipsia no heat intolerance - Genitourinary: No dysuria , no blood in urine Physical Exam General: No acute distress HEENT: No acute findings Neck: Supple Respiratory system: Able to talk in full sentences, no audible wheeze Cardiovascular: S1-S2 regular in rate and rhythm Gastrointestinal: No pain Extremities: No new findings 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 SETTER: Alert awake oriented x3 motor sensory intact Skin: Normal turgor, itching noted especially in the ankle area PFSH Medical History Encounter for general adult medical examination with abnormal findings Asthma, moderate persistent Urinary tract infection Itching Dysfunctional uterine bleeding Anxiety, generalized Mood disorder PVC (premature ventricular contraction) Chronic GERD Surgical History History of esophagogastroduodenoscopy (EGD) Hx of tubal ligation History of bunionectomy History of tonsillectomy History of section Family History Father Colon cancer Mother Lung cancer Brother No problems noted. Brother No problems noted. Son No problems noted. Daughter No problems noted. Daughter No problems noted. Daughter No problems noted. Other Mental health disorder Substance use disorder Social History Housing: House Alcohol intake: current Alcohol intake frequency: does not drink Patient Tobacco Use Status: Never used Tobacco e-Cigarette/Vaping Use: Never Used service: No Current occupational status: employed Cognitive needs: No Hearing needs: No Vision needs: Yes Questionnaire Thrive Questionnaire Date Thrive assessed: 12/17/24 I am a: Patient What is your living situation today?: I choose not to answer this question Within the past 12 months, did the food you bought not last and you didn't have the money to get more?: I choose not to answer this question Within the past 12 months, did you worry whether your food would run out before you got money to buy more?: I choose not to answer this question Do you have trouble paying for medicines?: I choose not to answer this question Do you have trouble getting transportation to medical appointments?: I choose not to answer this question Do you have trouble paying your heating and electricity bill?: I choose not to answer this question Do you have trouble taking care of your child, family member or friend?: I choose not to answer this question Do you have trouble with day-to-day activities such as bathing, preparing meals, shopping, managing finances, etc.?: No Are you currently unemployed and looking for a job?: No Are you interested in more education?: No Please select the resources that you would like help with: None Currently or been in a relationship where the following occur: No concerns reported THRIVE Score: 0 AUDIT C Alcohol Use Questionnaire (AUDIT-C) 1. How often do you have a drink containing alcohol?: Monthly or less 2. How many drinks containing alcohol do you have on a typical day when you are drinking?: 1 or 2 3. How often do you have six or more drinks on one occasion?: Never Total Score: 1 Score Reviewed/Action Taken: Yes LESLY-7 AMB Questionnaire LESLY-7 Date LESLY - 7 assessed: 11/05/24 Source: Developed by Drs. Roberto Dennis, India Bhatt, Vikash Hoffman and colleagues, with an educational aleja from [employer]. Physical exam (Primary Care) Vital Signs: Last Vital Signs Pulse 93 12/17/24 13:05 BP 112/70 12/17/24 13:05 Pulse Ox 99 12/17/24 13:05 Oxygen Delivery Method Room Air 12/17/24 13:05 BMI result Body Mass Index 23.2 Tobacco/Smoking Status: Tobacco use Status Tobacco use date assessed 11/05/24 12/17/24 13:07 Patient Tobacco Use Status Never used Tobacco 12/17/24 13:07 e-Cigarette/Vaping Use Never Used 12/17/24 13:07 Thrive Assessment: Date of Thrive Assessment Date Thrive assessed 12/17/24 12/17/24 13:12 Currently or been in a relationship where the following occur: No concerns reported Coding Level of Care Code Est Pt Level 4 (09105) Diagnoses LFT elevation R79.89 Fatty liver K76.0 Pruritus L29.9 Anxiety, generalized F41.1 Other migraine without status migrainosus, not intractable G43.809 Migraine type: other Status migrainosus presence: without status migrainosus Intractability: not intractable Assessment & Plan Assessment & Plan (1) LFT elevation: Code(s): R79.89 - Other specified abnormal findings of blood chemistry Category: Medical (2) Fatty liver: Code(s): K76.0 - Fatty (change of) liver, not elsewhere classified Category: Medical (3) Pruritus: Code(s): L29.9 - Pruritus, unspecified Category: Medical (4) Anxiety, generalized: Comment: Stable, patient is off fluoxetine Code(s): F41.1 - Generalized anxiety disorder Category: Medical (5) Migraine headache: Code(s): G43.909 - Migraine, unspecified, not intractable, without status migrainosus Category: Medical Qualifiers: Migraine type: other Status migrainosus presence: without status migrainosus Intractability: not intractable Qualified Code(s): G43.809 - Other migraine, not intractable, without status migrainosus Plan History - The patient is a 54 year old female presenting with elevated liver enzymes and worsening pruritus. - Worsening liver enzyme levels were noted, with previous ultrasound in 2022 indicating fatty liver. - Patient acknowledges a history of taking excessive acetaminophen (up to 13 pills a week) for headaches, potentially contributing to liver stress. - Patient also reported using Hydroxycut for appetite suppression which has since been discontinued due to liver concerns. - Reports ongoing headaches despite current medication with Topamax, which have been less frequent since discontinuing fluoxetine. - Discontinued fluoxetine to avoid medication dependency; associated anxiety symptoms including heart palpitations have since returned. - Reports persistent pruritus with some exacerbation since the onset of spring, aggravated by sun and heat exposure. - Denies significant alcohol consumption. Problem List - Elevated liver enzymes - Fatty liver (Steatosis) - Headaches - Anxiety - Pruritus (Itching) - History of fluoxetine use - Use of Acetaminophen (Tylenol) and Hydroxycut Patient Instructions - Take hydroxyzine 25 mg at bedtime, with an additional dose as needed for itching or anxiety during the day. - Consider increasing Topamax dose to 50 mg to address headaches. - Avoid taking vqva-kti-nyoafpz liver detox supplements and focus on dietary changes to manage liver health. - Drink two glasses of room temperature water upon waking up daily. - Incorporate more fruits, vegetables, and home-cooked meals into the diet. - Schedule a follow-up ultrasound to monitor liver condition. Orders: Orders US abdomen complete Today K76.0 - Fatty (change of) liver, not elsewhere classified, R79.89 - Other specified abnormal findings of blood chemistry Liver Fibrosis Pnl 2 Weeks K76.0 - Fatty (change of) liver, not elsewhere classified, R79.89 - Other specified abnormal findings of blood chemistry Comprehensive Met. Panel 2 Weeks K76.0 - Fatty (change of) liver, not elsewhere classified, R79.89 - Other specified abnormal findings of blood chemistry Medications: New hydroxyzine HCl 25 mg PO BID PRN 60 tabs 0RF itching
== END 2024-12-17 13:32 | disposition home or self-care (01) ==
LOC: HO.HMCC 12:52
PROVIDERS: PCP Internal Medicine; Visit Provider Internal Medicine
DX: R79.89 Other specified abnormal findings of blood chemistry (principal); K76.0 Fatty (change of) liver, not elsewhere classified; L29.9 Pruritus, unspecified; F41.1 Generalized anxiety disorder; G43.809 Other migraine, not intractable, without status migrainosus

== ENCOUNTER → 2024-12-17 12:51 | Outpatient (BNVA) | payer OTHER, SELFPAY | PROVIDERS: PCP Internal Medicine; Visit Provider Internal Medicine ==

== ENCOUNTER 2024-12-18 10:21 | Outpatient (AMB) | payer OTHER, SELFPAY ==
--- NOTE | 2024-12-18 10:21 | MHC.OFFVIS ---
Intake Visit Reasons: TV EMB results Allergies Seasonal Allergies Allergy (Unknown, Verified 11/27/24 15:59) allergies cephalexin Adverse Reaction (Mild, Verified 11/27/24 15:59) Hives HPI Comments Details: The patient scheduled a tele health visit post EMB. The pathology showed the following: Endometrium, biopsy: Fragments of inactive endometrium with pseudodecidual change (consistent with exogenous progestin), breakdown and necroinflammatory material; no atypia or hyperplasia identified 12/28 FSH/LH in the menopausal range 12/28 EMB= Proliferative endometrium 01/28 Mirena IUD inserted 05/30 EMB= benign endometrium PFSH Medical History Encounter for general adult medical examination with abnormal findings Asthma, moderate persistent Urinary tract infection Itching Dysfunctional uterine bleeding Anxiety, generalized Mood disorder PVC (premature ventricular contraction) Chronic GERD Surgical History History of esophagogastroduodenoscopy (EGD) Hx of tubal ligation History of bunionectomy History of tonsillectomy History of section Family History Father Colon cancer Mother Lung cancer Brother No problems noted. Brother No problems noted. Son No problems noted. Daughter No problems noted. Daughter No problems noted. Daughter No problems noted. Other Mental health disorder Substance use disorder Social History Housing: House Alcohol intake: current Alcohol intake frequency: does not drink Patient Tobacco Use Status: Never used Tobacco e-Cigarette/Vaping Use: Never Used service: No Current occupational status: employed Cognitive needs: No Hearing needs: No Vision needs: Yes Review of Systems Const All systems reviewed & are unremarkable except as noted in HPI and below Reports as per HPI and Reports no additional complaints GI Reports no additional complaints Reports no additional complaints Telehealth Telehealth Telehealth Platform: Telephone Location of provider rendering services: practice address Location of patient: address on file Patient Identification confirmed using: Name, : Yes Telehealth method: video Patient verbally consented to treatment: Yes Patient verbally consented to billing insurance company: Yes Patient informed of any privacy concerns related to visit: Yes Minutes spent on Phone/Video with Pt.: 2 Assessment & Plan Assessment & Plan (1) Abnormal uterine bleeding (AUB): Comment: FSH/LH in the menopausal range Proliferative endometrium on EMB 12/28 Mirena IUD inserted 01/28 05/30 EMB benign endometrium 11/29 EMB inactive endometrium Code(s): N93.9 - Abnormal uterine and vaginal bleeding, unspecified Category: Medical Plan: Discussed with the patient the results of the endometrial biopsy. Discussed with the patient the sensitivity, specificity, positive and negative predictive value, of endometrial biopsy in detecting endometrial pathology including but not limited to endometrial hyperplasia, cancer and other pathology; instructed the patient to call in case vaginal bleeding occur, the next step will be to proceed with further endometrial sampling evaluation to rule out endometrial pathology. All questions answered and the patient verbalized understanding and agreed with the plan. I spent a total of 20 minutes reviewing the chart, talking to the patient via video and documenting in the medical record. Coding Level of Care Code Tele Est Pt Level 3 (87893) Diagnoses Abnormal uterine bleeding (AUB) N93.9
== END 2024-12-18 11:00 | disposition home or self-care (01) ==
LOC: HO.HWS 10:21
PROVIDERS: PCP Internal Medicine; Visit Provider Obstetrics & Gynecology
DX: N93.9 Abnormal uterine and vaginal bleeding, unspecified (principal)
CPT/HCPCS: 99213

== ENCOUNTER → 2024-12-18 10:21 | Outpatient (BNVA) | payer OTHER, SELFPAY | PROVIDERS: PCP Internal Medicine; Visit Provider Obstetrics & Gynecology ==

== ENCOUNTER 2024-12-25 14:30 | Outpatient (REF) | payer OTHER, SELFPAY | END 2024-12-25 14:31 | disposition home or self-care (01) | LOC: HO.MAMMO 14:30 | PROVIDERS: PCP Internal Medicine; Visit Provider Internal Medicine | DX: Z12.31 Encounter for screening mammogram for malignant neoplasm of breast (principal) | CPT/HCPCS: 77063; 77067 ==

== ENCOUNTER → 2024-12-25 14:45 | Outpatient (BNV) | payer OTHER, SELFPAY | PROVIDERS: PCP Internal Medicine; Visit Provider Internal Medicine | DX: Z12.31 Encounter for screening mammogram for malignant neoplasm of breast (principal) | CPT/HCPCS: 77063; 77067 ==

== ENCOUNTER 2025-01-07 11:21 | Outpatient (AMB) | payer OTHER, SELFPAY ==
[2025-01-07 11:26] VITALS: BP 112/84; PULSE 86; TEMP 36.8; O2SAT 96; BMI 23.0
--- NOTE | 2025-01-07 11:26 | MHC.PC.OV ---
Vital Signs 01/07/25 11:26 Height 5 ft 3 in Weight 130 lb BMI 23.0 BP 112/84 Blood Pressure Location Rt brachial Position Sitting Pulse 86 Pulse Source Pulse Oximeter Temp 98.3 F Temp Source Oral Pulse Oximetry (%) 96 Oxygen Delivery Method Room Air Intake Visit Reasons: 3 weeks f/up Allergies Seasonal Allergies Allergy (Unknown, Verified 01/07/25 11:27) allergies cephalexin Adverse Reaction (Mild, Verified 01/07/25 11:27) Hives Medication List - Last Reconciled 01/07/25 by Rory Nagy MD albuterol sulfate 0.63 mg (3 mL) inhalation QID PRN albuterol sulfate 90 mcg/actuation 2 puffs PO Q4H PRN 90 days fluticasone propion-salmeterol 500-50 mcg/dose (Wixela Inhub) 1 inh inhalation Q12H hydroxyzine HCl 25 mg PO BID PRN montelukast 10 mg PO DAILY multivitamin 1 tab PO DAILY omeprazole 20 mg PO DAILY 90 days topiramate 25 mg PO BEDTIME Tobacco use date assessed: 01/07/25 Dental Screening Dental Screen Date: 01/07/25 Did you have a dental visit in the last 12 months?: Yes Did you have a dental problem in the last 6 months where you did not have access to dental care?: No Was dental information given to patient?: Patient has dentist HPI 3 weeks f/up HPI Details History - The patient is a 54-year-old female presenting with headache and pruritus. - The patient reports the continuation of headaches but describes improvement in symptoms with the current medication regimen. The headaches have been addressed with Topamax, and the patient confirmed increased dosing to 50 mg, taken once in the evening. - Pruritus was previously significant but has lessened with the use of hydroxyzine. Patient reports persistent mild itching with ongoing use at night and as needed during the day. - The patient awaits an upcoming liver ultrasound scheduled for January 22 to further evaluate liver-related issues that might be associated with pruritus, although details are not specified. Asthma is stable with Wixela and montelukast along with allergies Continue omeprazole for GERD Medical History: - Headaches previously managed with Topamax - Pruritus previously managed with hydroxyzine Medications: - Topamax 50 mg, taken once at night for headache management - Hydroxyzine for pruritus, taken once at night, with an additional dose as needed during the day - Wixela inhaler for asthma/allergies - Montelukast taken daily for allergies - Omeprazole 20 mg daily for gastric reflux Diagnostic Results: - Labs were completed in November. - Ultrasound is scheduled for January 22. Problem List - Headache - Pruritus - asthma - allergies - GERD - LFTs Patient Instructions - Continue taking Topamax 50 mg once at night, with an optional morning dose if needed. - Schedule and complete the liver ultrasound on January 22. - Continue hydroxyzine as prescribed for itching. - Use Vixela inhaler and Montelukast daily as directed for allergy management. - Follow up with lab tests by the end of the week as previously planned. Review of Systems - General: No fever no chills - Neurological: no dizziness - Ear nose throat: No sore throat no hearing difficulty no ear pain - Cardiovascular: No syncope, no chest pain, no palpitations - Gastrointestinal: No nausea vomiting or diarrhea - Endocrine: No polyuria polydipsia no heat intolerance - Genitourinary: No dysuria , no blood in urine Physical Exam General: No acute distress HEENT: No acute findings Neck: Supple Respiratory system: Able to talk in full sentences, no audible wheeze Cardiovascular: S1-S2 regular in rate and rhythm Gastrointestinal: No pain Extremities: No new findings 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 Brother No problems noted. Son No problems noted. Daughter No problems noted. Daughter No problems noted. Daughter No problems noted. Other Mental health disorder Substance use disorder Social History Housing: House Alcohol intake: current Alcohol intake frequency: does not drink Patient Tobacco Use Status: Never used Tobacco e-Cigarette/Vaping Use: Never Used service: No Current occupational status: employed Cognitive needs: No Hearing needs: No Vision needs: Yes Questionnaire PHQ-9 Over the last 2 weeks, how often have you been bothered by any of the following problems? 1. Little interest or pleasure in doing things: several days 2. Feeling down, depressed, or hopeless: several days 3. Trouble falling or staying asleep, or sleeping too much: several days 4. Feeling tired or having little energy: several days 5. Poor appetite or overeating: not at all 6. Feeling bad about yourself - or that you are a failure or have let yourself or your family down: not at all 7. Trouble concentrating on things, such as reading the newspaper or watching television: not at all 8. Moving or speaking so slowly that other people could have noticed. Or the opposite - being so fidgety or restless that you have been moving around a lot more than usual: several days 9. Thoughts that you would be better off or of hurting yourself in some way: not at all Total score: 5 Depression Screening Interpretation: Negative Depression Screening Done: Yes 54335 - PHQ-9 Billing: Yes Source: Developed by Drs. Roberto Dennis, India Bhatt, Vikash Hoffman and colleagues, with an educational aleja from [employer] Thrive Questionnaire Date Thrive assessed: 01/07/25 I am a: Patient What is your living situation today?: I choose not to answer this question Within the past 12 months, did the food you bought not last and you didn't have the money to get more?: I choose not to answer this question Within the past 12 months, did you worry whether your food would run out before you got money to buy more?: I choose not to answer this question Do you have trouble paying for medicines?: I choose not to answer this question Do you have trouble getting transportation to medical appointments?: I choose not to answer this question Do you have trouble paying your heating and electricity bill?: I choose not to answer this question Do you have trouble taking care of your child, family member or friend?: I choose not to answer this question Do you have trouble with day-to-day activities such as bathing, preparing meals, shopping, managing finances, etc.?: No Are you currently unemployed and looking for a job?: No Are you interested in more education?: No Please select the resources that you would like help with: None Currently or been in a relationship where the following occur: No concerns reported THRIVE Score: 0 AUDIT C Alcohol Use Questionnaire (AUDIT-C) 1. How often do you have a drink containing alcohol?: Monthly or less 2. How many drinks containing alcohol do you have on a typical day when you are drinking?: 1 or 2 3. How often do you have six or more drinks on one occasion?: Never Total Score: 1 Score Reviewed/Action Taken: Yes LESLY-7 AMB Questionnaire LESLY-7 Date LESLY - 7 assessed: 01/07/25 Feeling nervous, anxious, or on edge: 1 = Several days Not being able to stop or control worryin = Several days Worrying too much about different things: 1 = Several days Trouble relaxin = Several days Being so restless that it is hard to sit still: 1 = Several days Becoming easily annoyed or irritable: 1 = Several days Feeling afraid as if something awful might happen: 1 = Several days Total LESLY-7 score (0-4 normal; 5-9 mild; 10-14 moderate; 15-21 severe): 7 Source: Developed by Drs. Roberto Dennis, India Bhatt, Vikash Hoffman and colleagues, with an educational aleja from [employer] Physical exam (Primary Care) Vital Signs: Last Vital Signs Temp 98.3 F 01/07/25 11:26 Pulse 86 01/07/25 11:26 BP 112/84 01/07/25 11:26 Pulse Ox 96 01/07/25 11:26 Oxygen Delivery Method Room Air 01/07/25 11:26 BMI result Body Mass Index 23.0 Tobacco/Smoking Status: Tobacco use Status Tobacco use date assessed 01/07/25 01/07/25 11:31 Patient Tobacco Use Status Never used Tobacco 01/07/25 11:31 e-Cigarette/Vaping Use Never Used 01/07/25 11:31 PHQ-9: PHQ-9 Score PHQ-9: Total score 5 01/07/25 11:31 Depression Screening Interpretation: Negative Thrive Assessment: Date of Thrive Assessment Date Thrive assessed 01/07/25 01/07/25 11:31 Currently or been in a relationship where the following occur: No concerns reported Coding Level of Care Code Est Pt Level 4 (74139) Diagnoses Other migraine without status migrainosus, not intractable G43.809 Migraine type: other Status migrainosus presence: without status migrainosus Intractability: not intractable Moderate persistent asthma with status asthmaticus J45.42 Asthma complication type: with status asthmaticus LFT elevation R79.89 Gastroesophageal reflux disease without esophagitis K21.9 Esophagitis presence: without esophagitis Fatty liver K76.0 Pruritus L29.9 Anxiety, generalized F41.1 Additional Codes PHQ-9 - 90798 - PHQ-9 Billing: Yes ([id number]) Assessment & Plan Assessment & Plan (1) Migraine headache: Code(s): G43.909 - Migraine, unspecified, not intractable, without status migrainosus Category: Medical Qualifiers: Migraine type: other Status migrainosus presence: without status migrainosus Intractability: not intractable Qualified Code(s): G43.809 - Other migraine, not intractable, without status migrainosus (2) Asthma, moderate persistent: Code(s): J45.40 - Moderate persistent asthma, uncomplicated Category: Medical Qualifiers: Asthma complication type: with status asthmaticus Qualified Code(s): J45.42 - Moderate persistent asthma with status asthmaticus (3) LFT elevation: Code(s): R79.89 - Other specified abnormal findings of blood chemistry Category: Medical (4) GERD (gastroesophageal reflux disease): Code(s): K21.9 - Gastro-esophageal reflux disease without esophagitis Category: Medical Qualifiers: Esophagitis presence: without esophagitis Qualified Code(s): K21.9 - Gastro-esophageal reflux disease without esophagitis (5) Fatty liver: Code(s): K76.0 - Fatty (change of) liver, not elsewhere classified Category: Medical (6) Pruritus: Code(s): L29.9 - Pruritus, unspecified Category: Medical (7) Anxiety, generalized: Comment: Stable, patient is off fluoxetine Code(s): F41.1 - Generalized anxiety disorder Category: Medical Plan History - The patient is a 54-year-old female presenting with headache and pruritus. - The patient reports the continuation of headaches but describes improvement in symptoms with the current medication regimen. The headaches have been addressed with Topamax, and the patient confirmed increased dosing to 50 mg, taken once in the evening. - Pruritus was previously significant but has lessened with the use of hydroxyzine. Patient reports persistent mild itching with ongoing use at night and as needed during the day. - The patient awaits an upcoming liver ultrasound scheduled for January 22 to further evaluate liver-related issues that might be associated with pruritus, although details are not specified. Asthma is stable with Wixela and montelukast along with allergies Continue omeprazole for GERD Medical History: - Headaches previously managed with Topamax - Pruritus previously managed with hydroxyzine Medications: - Topamax 50 mg, taken once at night for headache management - Hydroxyzine for pruritus, taken once at night, with an additional dose as needed during the day - Wixela inhaler for asthma/allergies - Montelukast taken daily for allergies - Omeprazole 20 mg daily for gastric reflux Diagnostic Results: - Labs were completed in November. - Ultrasound is scheduled for January 22. Problem List - Headache - Pruritus - asthma - allergies - GERD - LFTs Patient Instructions - Continue taking Topamax 50 mg once at night, with an optional morning dose if needed. - Schedule and complete the liver ultrasound on January 22. - Continue hydroxyzine as prescribed for itching. - Use Vixela inhaler and Montelukast daily as directed for allergy management. - Follow up with lab tests by the end of the week as previously planned. Medications: Changed From topiramate 25 mg PO BEDTIME 90 tabs 0RF To topiramate 50 mg PO BEDTIME 90 days 90 tabs 0RF
--- OUTSIDE RECORDS SUMMARY | 2025-01-07 13:04 | XMS_ITS | Patient Health Record ---
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 Yakov DIOP, [facility] Primary [facility] Provider Unavailabl e JuanVive Unavailable [phone] Reason For Referral No Information Medications Medication SIG (Take, Route, Frequency, Duration) Notes Start Date End Date Status Keflex 500 MG 1 capsule Orally chang ry 12 hrs for 10 day(s) 05/29/2017 Not-Taking Naproxen 375 MG 1 tablet Orally Twic e a day for 30 day(s) 07/25/2016 Not-Taking Albuterol Active LORazepam 0.5 MG 1 tablet Orally Twic e a day Not-Taking Ciclopirox Olamine 0.77 % 1 application to affected area Externally Twice a day for 30 days 06/15/2017 Active Physical Therapy 3-4x per week for 3- 4 weeks Not-Taking Nystatin-Triamcinolone 369898-1.1 UNIT/GM 1 application to affected area Externally Twice a day for 30 days 07/03/2017 Active LamISIL 250 MG 1 tablet Orally Once a day for 14 days 05/29/2017 Not-Taking Keflex 500 MG 1 capsule Orally chang ry 12 hrs for 10 day(s) Not-Taking Fluoxetine 20 MG/5ML as directed Orally Active Work Note . . . Pt may return to work 09/19/16 09/16/2016 Not-Taking hydrOXYzine HCl PRN Acti ve Keflex 500 MG 1 capsule Orally Twi ce a day for 10 day(s) 10/10/2016 Not-Taking Advair HFA Active Percocet 5-325 MG 1 tablet as needed Orally every 6 hrs for as needed 07/25/2016 Not-Taking Keflex 500 MG 1 capsule Orally chang ry 12 hrs for 10 day(s) 09/08/2016 Not-Taking Social History Alcohol Screen Question Answer Notes Did you have a drink contain ing alcohol in the past year? Yes How often did you have a dri nk containing alcohol in the past year? 2 to 4 times a month (2 points) How many drinks did you have on a typical day when you were drinking in the past year? 1 or 2 drinks (0 point) How often did you have 6 or more drinks on one occasion in the past year? Never (0 point) Points 2 Interpretation Negative Tobacco use other than smoking: Question Answer Notes Are you an other tobacco user? 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 Plan Of Treatment Pending Test Test Name Order Date X ray : Foot, right 2V 09/26/2012 X ray : Foot, right 2V 09/12/2012 X ray : Foot, right 2V 08/29/2012 X ray : Foot, right 2V 08/20/2012 X ray : Foot, right 3V 04/23/2012 93238- Debride <25 sq cm 06/15/2017 42897- Biopsy of skin lesion 07/06/2017 Insurance Providers Payer Name Payer Address Payer Phone Subscriber Number Group Number Insured Name Patient Relationship to Insured Coverage Start Date Coverage End Date [facility] [address] [place] [address] [id number] Alexandra Fam Self - patient is the insured Medical (General) History Medical History History ICD Code anxiety depression chicken pox Headaches Joint implants/screws Surgical History Surgery Date(Month/Year) section tonsillectomy Patrick bunionectomy right foot 08/15/12 Miguel/Patrick Araujo w/isaiah 08/17/2016 Colonoscopy 05/25/17
== END 2025-01-07 12:02 | disposition home or self-care (01) ==
LOC: HO.HMCC 11:24
PROVIDERS: PCP Internal Medicine; Visit Provider Internal Medicine
DX: G43.809 Other migraine, not intractable, without status migrainosus (principal); J45.42 Moderate persistent asthma with status asthmaticus; R79.89 Other specified abnormal findings of blood chemistry; K21.9 Gastro-esophageal reflux disease without esophagitis; K76.0 Fatty (change of) liver, not elsewhere classified; L29.9 Pruritus, unspecified; F41.1 Generalized anxiety disorder

== ENCOUNTER → 2025-01-07 11:21 | Outpatient (BNVA) | payer OTHER, SELFPAY | PROVIDERS: PCP Internal Medicine; Visit Provider Internal Medicine | DX: K21.9 Gastro-esophageal reflux disease without esophagitis (principal); L29.9 Pruritus, unspecified; J45.909 Unspecified asthma, uncomplicated; Z79.899 Other long term (current) drug therapy; G43.809 Other migraine, not intractable, without status migrainosus; J45.42 Moderate persistent asthma with status asthmaticus; R79.89 Other specified abnormal findings of blood chemistry; K76.0 Fatty (change of) liver, not elsewhere classified; F41.1 Generalized anxiety disorder | CPT/HCPCS: 96127 ==

== ENCOUNTER 2025-01-14 07:07 | Outpatient (REF) | payer OTHER, SELFPAY ==
[2025-01-14 10:58] LABS: Alanine Aminotransferase 27 U/L (0-31); Albumin Level 4.6 g/dL (3.5-5.0); Alkaline Phosphatase 122 U/L (39-117); Anion Gap 9 (12-20); Aspartate Amino Transferase 26 U/L (5-31); Bilirubin Total 0.5 mg/dL (0.0-1.0); Blood Urea Nitrogen 21 mg/dL (9-16); Calcium 9.5 mg/dL (8.4-10.2); Carbon Dioxide 27 mmol/L (22-29); Chloride 110 mmol/L (96-108); Estimated Glomerular Filt Rate > 60; Glucose Random 94 mg/dL (60-115); Potassium 4.4 mmol/L (3.3-5.1); Sodium 142 mmol/L (135-145)
[2025-01-23 18:03] LABS: FIB-ALT 17 U/L (6-29); FIB-Alpha-2-Macroglobulin 136 mg/dL (106-279); FIB-Apolipoprotein A1 171 mg/dL (101-198); FIB-GGT 108 U/L (3-70); FIB-Haptoglobin 187 mg/dL (43-212); FIB-Total Bilirubin 0.4 mg/dL (0.2-1.2); Liver Fibrosis Score 0.09; Liver Fibrosis Stage F0; Nec Inflam Act Grade A0; Nec Inflam Act Score 0.05
== END 2025-01-14 07:08 | disposition home or self-care (01) ==
LOC: HO.HMGCLDS 07:07
PROVIDERS: PCP Internal Medicine; Visit Provider Internal Medicine
DX: K76.0 Fatty (change of) liver, not elsewhere classified (principal); R79.89 Other specified abnormal findings of blood chemistry
CPT/HCPCS: 36415; 80053; 81596

== ENCOUNTER 2025-01-22 08:14 | Outpatient (REF) | payer OTHER, SELFPAY ==
--- NOTE | ~2025-01-22 | US_ITS ---
CLINICAL HISTORY: R79.89 - Other specified abnormal findings of blood chemistry US abdomen complete Comparison: None Findings: The pancreas is normal. The visualized aorta and inferior vena cava are normal caliber. The liver is normal in size, right lobe length is 15.4 cm. Normal in echogenicity, no discrete lesion is visualized in the imaged liver. No intrahepatic bile duct dilatation. The common duct is top-normal, 6 mm in diameter. The gallbladder is normal. Negative sonographic Estevez sign. The main portal vein is patent with antegrade flow. The right kidney is normal, 10.4 cm in length. The left kidney is normal, 10.9 cm in length. The spleen is normal, 9.1 cm in length. No free fluid in the abdomen. Impression: 1. No sonographic abnormality. This document has been electronically signed by: Jennifer Dumont MD on 01/22/2025 11:57:22
--- OUTSIDE RECORDS SUMMARY | 2025-01-22 08:28 | XMS_ITS | Patient Health Record ---
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 Plan Of Treatment Pending Test Test Name Order Date X ray : Foot, right 2V 08/20/2012 X ray : Foot, right 2V 08/29/2012 X ray : Foot, right 2V 09/12/2012 X ray : Foot, right 2V 09/26/2012 X ray : Foot, right 3V 04/23/2012 98533- Debride <25 sq cm 06/15/2017 17705- Biopsy of skin lesion 07/06/2017 Insurance Providers Payer Name Payer Address Payer Phone Subscriber Number Group Number Insured Name Patient Relationship to Insured Coverage Start Date Coverage End Date [facility] [address] [place] [address] [id number] Alexandra Fam Self - patient is the insured Medical (General) History Medical History History ICD Code anxiety depression chicken pox Headaches Joint implants/screws Surgical History Surgery Date(Month/Year) section tonsillectomy Patrick bunionectomy right foot 08/15/12 Miguel/Patrick Araujo w/isaiah 08/17/2016 Colonoscopy 05/25/17
== END 2025-01-22 08:15 | disposition home or self-care (01) ==
LOC: HO.US 08:14
PROVIDERS: PCP Internal Medicine; Visit Provider Internal Medicine
DX: R79.89 Other specified abnormal findings of blood chemistry (principal); K76.0 Fatty (change of) liver, not elsewhere classified
CPT/HCPCS: 76700

== ENCOUNTER → 2025-01-22 08:16 | Outpatient (BNV) | payer OTHER, SELFPAY | PROVIDERS: PCP Internal Medicine; Visit Provider Radiology Diagnostic Radiology | DX: R79.89 Other specified abnormal findings of blood chemistry (principal) | CPT/HCPCS: 76700 ==

== ENCOUNTER 2025-03-25 15:07 | Outpatient (AMB) | payer OTHER, SELFPAY ==
--- NOTE | 2025-03-25 15:10 | MHC.PC.OV ---
Vital Signs 03/25/25 15:11 Height 5 ft 3 in Weight 134 lb BMI 23.7 BP 110/70 Blood Pressure Location Lt brachial Position Sitting Pulse 83 Pulse Source Pulse Oximeter Pulse Oximetry (%) 98 Intake Visit Reasons: 4m follow up Allergies Seasonal Allergies Allergy (Unknown, Verified 03/25/25 15:11) allergies cephalexin Adverse Reaction (Mild, Verified 03/25/25 15:11) Hives Medication List - Last Reconciled 03/25/25 by Rory Nagy MD albuterol sulfate 0.63 mg (3 mL) inhalation QID PRN albuterol sulfate 90 mcg/actuation 2 puffs PO Q4H PRN 90 days fluticasone propion-salmeterol 500-50 mcg/dose (Wixela Inhub) 1 inh inhalation Q12H hydroxyzine HCl 25 mg PO BID PRN montelukast 10 mg PO DAILY multivitamin 1 tab PO DAILY omeprazole 20 mg PO DAILY 90 days topiramate 50 mg PO BEDTIME 90 days Tobacco use date assessed: 01/07/25 Dental Screening Dental Screen Date: 01/07/25 HPI 4m follow up HPI Details History The patient is a 54-year-old female presenting with a four-month follow-up. Itching: - Describes itching as being well-controlled with medication. - Has been using hydroxyzine once daily, at night. - Noted improvement, even while on vacation. Headaches: - No current complaints of headaches. - Previously managed with Topamax. Asthma: - Asthma is reported as stable. Allergies: - No issues reported; stable condition. Gastroesophageal Reflux Disease (GERD): - Symptoms currently reported as controlled. Elevated Liver Enzymes: - Past liver ultrasound in January showed no concerning findings. - Persistent mild elevation in alkaline phosphatase; stable over time. - No associated symptoms such as pain or discoloration of stools. Weight Concerns: - Patient expressed a desire to use phentermine despite normal BMI (23.7). - Being monitored for weight given past use of phentermine. Medical History: - Asthma - Allergies - Gastroesophageal Reflux Disease (GERD) - Elevated Liver Enzymes with stable alkaline phosphatase - Previous headache management with Topamax Medications: - Hydroxyzine for itching, once daily at night - Topamax, 50 mg daily - Dopamine Hydroxyzine Vexela inhaler for asthma - Montelukast - Omeprazole for GERD Family History: - Family history of colon cancer. Problem List - Asthma - Allergies - Gastroesophageal Reflux Disease (GERD) - Persistent elevated alkaline phosphatase - History of headaches Patient Instructions - Continue prescribed medications. - Monitor for any changes in symptoms or weight. - Follow-up with the care team in four months. - Consider discussing any persistent enzyme abnormalities with gastroenterology. Review of Systems General: No fever no chills neurological: No headaches no dizziness ear nose throat: No sore throat no hearing difficulty no ear pain cardiovascular: No syncope, no chest pain, no palpitations gastrointestinal: No nausea vomiting or diarrhea endocrine: No polyuria polydipsia no heat intolerance genitourinary: No dysuria skin: No new complaints Physical Exam general: No acute distress HEENT: No acute findings neck: Supple respiratory system: Able to talk in full sentences, no audible wheeze no stridor cardiovascular: S1-S2 RRR gastrointestinal: No pain extremities: No new findings 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 Brother No problems noted. Son No problems noted. Daughter No problems noted. Daughter No problems noted. Daughter No problems noted. Other Mental health disorder Substance use disorder Social History Housing: House Alcohol intake: current Alcohol intake frequency: does not drink Patient Tobacco Use Status: Never used Tobacco e-Cigarette/Vaping Use: Never Used service: No Current occupational status: employed Cognitive needs: No Hearing needs: No Vision needs: Yes Questionnaire Thrive Questionnaire Date Thrive assessed: 01/07/25 I am a: Patient What is your living situation today?: I choose not to answer this question Within the past 12 months, did the food you bought not last and you didn't have the money to get more?: I choose not to answer this question Within the past 12 months, did you worry whether your food would run out before you got money to buy more?: I choose not to answer this question Do you have trouble paying for medicines?: I choose not to answer this question Do you have trouble getting transportation to medical appointments?: I choose not to answer this question Do you have trouble paying your heating and electricity bill?: I choose not to answer this question Do you have trouble taking care of your child, family member or friend?: I choose not to answer this question Do you have trouble with day-to-day activities such as bathing, preparing meals, shopping, managing finances, etc.?: No Are you currently unemployed and looking for a job?: No Are you interested in more education?: No Please select the resources that you would like help with: None Currently or been in a relationship where the following occur: No concerns reported THRIVE Score: 0 LESLY-7 AMB Questionnaire LESLY-7 Date LESLY - 7 assessed: 01/07/25 Source: Developed by Drs. Roberto Dennis, India Bhatt, Vikash Hoffman and colleagues, with an educational aleja from [employer]. Physical exam (Primary Care) Vital Signs: Last Vital Signs Pulse 83 03/25/25 15:11 BP 110/70 03/25/25 15:11 Pulse Ox 98 03/25/25 15:11 BMI result Body Mass Index 23.7 Tobacco/Smoking Status: Tobacco use Status Tobacco use date assessed 01/07/25 03/25/25 15:11 Patient Tobacco Use Status Never used Tobacco 03/25/25 15:11 e-Cigarette/Vaping Use Never Used 03/25/25 15:11 Thrive Assessment: Date of Thrive Assessment Date Thrive assessed 01/07/25 03/25/25 15:11 Currently or been in a relationship where the following occur: No concerns reported Coding Level of Care Code Est Pt Level 4 (39834) Diagnoses LFT elevation R79.89 Moderate persistent asthma with status asthmaticus J45.42 Asthma complication type: with status asthmaticus Other migraine without status migrainosus, not intractable G43.809 Intractability: not intractable Migraine type: other Status migrainosus presence: without status migrainosus Gastroesophageal reflux disease without esophagitis K21.9 Esophagitis presence: without esophagitis Pruritus L29.9 Cat allergies J30.81 Assessment & Plan Assessment & Plan (1) LFT elevation: Code(s): R79.89 - Other specified abnormal findings of blood chemistry Category: Medical (2) Asthma, moderate persistent: Code(s): J45.40 - Moderate persistent asthma, uncomplicated Category: Medical Qualifiers: Asthma complication type: with status asthmaticus Qualified Code(s): J45.42 - Moderate persistent asthma with status asthmaticus (3) Migraine headache: Code(s): G43.909 - Migraine, unspecified, not intractable, without status migrainosus Category: Medical Qualifiers: Intractability: not intractable Migraine type: other Status migrainosus presence: without status migrainosus Qualified Code(s): G43.809 - Other migraine, not intractable, without status migrainosus (4) GERD (gastroesophageal reflux disease): Code(s): K21.9 - Gastro-esophageal reflux disease without esophagitis Category: Medical Qualifiers: Esophagitis presence: without esophagitis Qualified Code(s): K21.9 - Gastro-esophageal reflux disease without esophagitis (5) Pruritus: Code(s): L29.9 - Pruritus, unspecified Category: Medical (6) Cat allergies: Code(s): J30.81 - Allergic rhinitis due to animal (cat) (dog) hair and dander Category: Medical Plan History The patient is a 54-year-old female presenting with a four-month follow-up. Itching: - Describes itching as being well-controlled with medication. - Has been using hydroxyzine once daily, at night. - Noted improvement, even while on vacation. Headaches: - No current complaints of headaches. - Previously managed with Topamax. Asthma: - Asthma is reported as stable. Allergies: - No issues reported; stable condition. Gastroesophageal Reflux Disease (GERD): - Symptoms currently reported as controlled. Elevated Liver Enzymes: - Past liver ultrasound in January showed no concerning findings. - Persistent mild elevation in alkaline phosphatase; stable over time. - No associated symptoms such as pain or discoloration of stools. Weight Concerns: - Patient expressed a desire to use phentermine despite normal BMI (23.7). - Being monitored for weight given past use of phentermine. Medical History: - Asthma - Allergies - Gastroesophageal Reflux Disease (GERD) - Elevated Liver Enzymes with stable alkaline phosphatase - Previous headache management with Topamax Medications: - Hydroxyzine for itching, once daily at night - Topamax, 50 mg daily - Dopamine Hydroxyzine Vexela inhaler for asthma - Montelukast - Omeprazole for GERD Family History: - Family history of colon cancer. Problem List - Asthma - Allergies - Gastroesophageal Reflux Disease (GERD) - Persistent elevated alkaline phosphatase - History of headaches Patient Instructions - Continue prescribed medications. - Monitor for any changes in symptoms or weight. - Follow-up with the care team in four months. - Consider discussing any persistent enzyme abnormalities with gastroenterology. Orders: Orders Complete Blood Count Auto Diff Today G43.809 - Other migraine, not intractable, without status migrainosus, J30.81 - Allergic rhinitis due to animal (cat) (dog) hair and dander, J45.42 - Moderate persistent asthma with status asthmaticus, K21.9 - Gastro-esophageal reflux disease without esophagitis, L29.9 - Pruritus, unspecified, R79.89 - Other specified abnormal findings of blood chemistry Comprehensive Met. Panel Today G43.809 - Other migraine, not intractable, without status migrainosus, J30.81 - Allergic rhinitis due to animal (cat) (dog) hair and dander, J45.42 - Moderate persistent asthma with status asthmaticus, K21.9 - Gastro-esophageal reflux disease without esophagitis, L29.9 - Pruritus, unspecified, R79.89 - Other specified abnormal findings of blood chemistry
[2025-03-25 15:11] VITALS: BP 110/70; PULSE 83; O2SAT 98; BMI 23.7
--- OUTSIDE RECORDS SUMMARY | 2025-03-25 16:26 | XMS_ITS | Patient Health Record ---
[facility] Address [address] [place] [address] Care Team Providers Care Consumer Affairs Manager Name Role Phone [facility]akov [facility], [facility] Primary [facility] Provider Unavailabl e JuanVive Unavailable [phone] Reason For Referral No Information Medications Medication SIG (Take, Route, Frequency, Duration) Notes Start Date End Date Status Keflex 500 MG 1 capsule Orally chang ry 12 hrs; Duration: 10 day(s) 05/29/2017 Not-Taking Naproxen 375 MG 1 tablet Orally Twic e a day; Duration: 30 day(s) 07/25/2016 Not-Joshua ing Albuterol Active LORazepam 0.5 MG 1 tablet Orally Twic e a day Not-Taking Ciclopirox Olamine 0.77 % 1 application to affected area Externally Twice a day; Duration: 30 days 06/15/2017 Active Physical Therapy 3-4x per week for 3- 4 weeks Not-Taking Nystatin-Triamcinolone 629532-1.1 UNIT/GM 1 application to affected area Externally Twice a day; Duration: 30 days 07/03/2017 Active LamISIL 250 MG 1 tablet Orally Once a day; Duration: 14 days 05/29/2017 Not-Takin g Keflex 500 MG 1 capsule Orally chang ry 12 hrs; Duration: 10 day(s) Not-Taking Fluoxetine 20 MG/5ML as directed Orally Active Work Note . . . 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 Plan Of Treatment Pending Test Test Name Order Date X ray : Foot, right 2V 08/20/2012 X ray : Foot, right 2V 08/29/2012 X ray : Foot, right 2V 09/12/2012 X ray : Foot, right 2V 09/26/2012 X ray : Foot, right 3V 04/23/2012 42856- Debride <25 sq cm 06/15/2017 60169- Biopsy of skin lesion 07/06/2017 Insurance Providers Payer Name Payer Address Payer Phone Subscriber Number Group Number Insured Name Patient Relationship to Insured Coverage Start Date Coverage End Date [facility] [address] [facility] [id number] Alexandra Fam Self - patient is the insured Medical (General) History Medical History History ICD Code anxiety depression chicken pox Headaches Joint implants/screws Surgical History Surgery Date(Month/Year) section tonsillectomy Patrick bunionectomy right foot 08/15/12 Miguel/Patrick Araujo w/isaiah 08/17/2016 Colonoscopy 05/25/17
== END 2025-03-25 15:41 | disposition home or self-care (01) ==
LOC: HO.HMCC 15:08
PROVIDERS: PCP Internal Medicine; Visit Provider Internal Medicine
DX: R79.89 Other specified abnormal findings of blood chemistry (principal); J45.42 Moderate persistent asthma with status asthmaticus; G43.809 Other migraine, not intractable, without status migrainosus; K21.9 Gastro-esophageal reflux disease without esophagitis; L29.9 Pruritus, unspecified; J30.81 Allergic rhinitis due to animal (cat) (dog) hair and dander

== ENCOUNTER 2025-07-25 13:52 | Outpatient (AMB) | payer OTHER, BC, SELFPAY ==
[2025-07-25 13:54] VITALS: BP 110/72; PULSE 72; O2SAT 98; BMI 24.3
--- NOTE | 2025-07-25 13:54 | A.OFFPC_ITS ---
Vital Signs 07/25/25 13:54 Height 5 ft 3 in Weight 137 lb BMI 24.3 BP 110/72 Blood Pressure Location Lt brachial Position Sitting Pulse 72 Pulse Source Pulse Oximeter Pulse Oximetry (%) 98 Intake Visit Reasons: 4m follow up Allergies Seasonal Allergies Allergy (Unknown, Verified 07/25/25 13:55) allergies cephalexin Adverse Reaction (Mild, Verified 07/25/25 13:55) Hives Medication List - Last Reconciled 07/25/25 by Rory Nagy MD albuterol sulfate 0.63 mg (3 mL) inhalation QID PRN albuterol sulfate 90 mcg/actuation 2 puffs PO Q4H PRN 90 days fluticasone propion-salmeterol 500-50 mcg/dose (Wixela Inhub) 1 inh inhalation Q12H hydroxyzine HCl 25 mg PO BID PRN montelukast 10 mg PO DAILY 90 days multivitamin 1 tab PO DAILY omeprazole 20 mg PO DAILY 90 days topiramate 50 mg PO BEDTIME 90 days Tobacco use date assessed: 01/07/25 Dental Screening Dental Screen Date: 01/07/25 HPI HPI Comments History of Present Illness Details History of Present Illness The patient is a 55 year old female presenting for a follow-up visit to review medications, discuss new abdominal discomfort, and have recent skin biopsy sites examined. Anxiety and Pruritus: - The patient takes hydroxyzine daily fo r anxiety, which manifests as itching in her arms. Gastrointestinal Issues: - She reports a new symptom of discomfor t in the colon area that occurs after eating. - Her bowel movements are mostly regular with no significant constipation. - A study from January of the previous year revealed mild disorganized esophageal peristalsis, a small hiatal hernia, and mild gastric reflux. - Her last colonoscopy was in 2016, with a recommendation for a repeat in 10 years. Abnormal Lab and Imaging Findings: - Blood tests from November and January showed a slightly elevated liver enzyme. - A chest CT scan in November of last year, ordered to investigate dyspnea, was negative for acute pulmonary pathology but incidentally noted probable hepatic steatosis (fatty liver). - An order for blood tests was placed in March of the current year, but the tests were not completed. Skin Biopsy: - The patient underwent a punch biopsy o f two moles on her chest approximately one to two weeks ago. - She was concerned about a possible inf ection at the biopsy sites. Medical History: - Anxiety - History of dyspnea, evaluated with a c hest CT which was normal - Mild disorganized esophageal peristals is - Small hiatal hernia - Mild gastroesophageal reflux - Probable hepatic steatosis (fatty live r) - Elevated liver enzyme - Last colonoscopy in 2016 Surgical History: - Punch biopsy of two moles on the chest about a week prior to visit Medications: - Hydroxyzine, taken once daily for anxi ety and itching - Montelukast 10 mg - Omeprazole - Topamax at bedtime - inhalers for asthma Social History: - The patient denies smoking. Family History: - Lung cancer on her mother's side. - Father had bladder, kidney, and prosta te cancer. - Her father was a smoker. Diagnostic Results: - Blood pressure: 110/72 mmHg. - Lab studies (): Showed one s lightly elevated liver enzyme. - GI study (January): Revealed mi ld disorganized esophageal peristalsis, a small hiatal hernia, and mild gastric reflux. - Chest CT (November): Showed no acute pulmonary pathology; incidental note was made of probable hepatic steatosis. [facility] Medical History (Updated 07/25/25 @ 14:20 by Rory Nagy MD) Encounter for general adult medical examination with abnormal findings Asthma, moderate persistent Urinary tract infection Itching Dysfunctional uterine bleeding Anxiety, generalized Mood disorder PVC (premature ventricular contraction) Chronic GERD Surgical History History of esophagogastroduodenoscopy (EGD) Hx of tubal ligation History of bunionectomy History of tonsillectomy History of section Family History Father Colon cancer Mother Lung cancer Brother No problems noted. Brother No problems noted. Son No problems noted. Daughter No problems noted. Daughter No problems noted. Daughter No problems noted. Other Mental health disorder Substance use disorder Social History Housing: House Alcohol intake: current Alcohol intake frequency: does not drink Patient Tobacco Use Status: Never used Tobacco e-Cigarette/Vaping Use: Never Used service: No Current occupational status: employed Cognitive needs: No Hearing needs: No Vision needs: Yes Questionnaire Thrive Questionnaire Date Thrive assessed: 11/05/24 I am a: Patient What is your living situation today?: I choose not to answer this question Within the past 12 months, did the food you bought not last and you didn't have the money to get more?: I choose not to answer this question Within the past 12 months, did you worry whether your food would run out before you got money to buy more?: I choose not to answer this question Do you have trouble paying for medicines?: I choose not to answer this question Do you have trouble getting transportation to medical appointments?: I choose not to answer this question Do you have trouble paying your heating and electricity bill?: I choose not to answer this question Do you have trouble taking care of your child, family member or friend?: I choose not to answer this question Do you have trouble with day-to-day activities such as bathing, preparing meals, shopping, managing finances, etc.?: No Are you currently unemployed and looking for a job?: No Are you interested in more education?: No Please select the resources that you would like help with: None Currently or been in a relationship where the following occur: No concerns reported THRIVE Score: 0 LESLY-7 AMB Questionnaire LESLY-7 Date LESLY - 7 assessed: 01/07/25 Source: Developed by Drs. Roberto Dennis, India Bhatt, Vikash Hoffman and colleagues, with an educational aleja from [employer]. Review of Systems Narrative Review of Systems - General: No fever no chills - Neurological: No headaches no dizziness - Ear nose throat: No sore throat no hearing difficulty no ear pain - Cardiovascular: No syncope, no chest pain, no palpitations - Gastrointestinal: No nausea vomiting or diarrhea - Endocrine: No polyuria polydipsia no heat intolerance - Genitourinary: No dysuria , no blood in urine Physical exam (Primary Care) Vital Signs: Last Vital Signs Pulse 72 07/25/25 13:54 BP 110/72 07/25/25 13:54 Pulse Ox 98 07/25/25 13:54 BMI result Body Mass Index 24.3 Tobacco/Smoking Status: Tobacco use Status Tobacco use date assessed 01/07/25 07/25/25 13:58 Patient Tobacco Use Status Never used Tobacco 07/25/25 13:58 e-Cigarette/Vaping Use Never Used 07/25/25 13:58 Thrive Assessment: Date of Thrive Assessment Date Thrive assessed 11/05/24 07/25/25 13:58 Currently or been in a relationship where the following occur: No concerns reported Narrative Physical Exam General: No acute distress HEENT: No acute findings Neck: Supple Respiratory system: Able to talk in full sentences, no audible wheeze Cardiovascular: S1-S2 regular in rate and rhythm Gastrointestinal: No pain, with exam, BS + Extremities: No new findi ngs 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 Skin: Normal turgor, healing well post-biopsy on right flank area healing well , no signs of infection, and around chest in the back, that is also healing well Coding Level of Care Code Est Pt Level 4 (41484) Diagnoses Moderate persistent asthma with status asthmaticus J45.42 Asthma complication type: with status asthmaticus Anxiety, generalized F41.1 Gastroesophageal reflux disease without esophagitis K21.9 Esophagitis presence: without esophagitis LFT elevation R79.89 Other migraine without status migrainosus, not intractable G43.809 Migraine type: other Status migrainosus presence: without status migrainosus Intractability: not intractable Pruritus L29.9 Assessment & Plan Assessment & Plan (1) Asthma, moderate persistent: Code(s): J45.40 - Moderate persistent asthma, uncomplicated Category: Medical Qualifiers: Asthma complication type: with status asthmaticus Qualified Code(s): J45.42 - Moderate persistent asthma with status asthmaticus (2) Anxiety, generalized: Comment: Stable, patient is off fluoxetine, but taking Hydroxyzine Code(s): F41.1 - Generalized anxiety disorder Category: Medical (3) GERD (gastroesophageal reflux disease): Code(s): K21.9 - Gastro-esophageal reflux disease without esophagitis Category: Medical Qualifiers: Esophagitis presence: without esophagitis Qualified Code(s): K21.9 - Gastro-esophageal reflux disease without esophagitis (4) LFT elevation: Code(s): R79.89 - Other specified abnormal findings of blood chemistry Category: Medical (5) Migraine headache: Code(s): G43.909 - Migraine, unspecified, not intractable, without status migrainosus Category: Medical Qualifiers: Migraine type: other Status migrainosus presence: without status migrainosus Intractability: not intractable Qualified Code(s): G43.809 - Other migraine, not intractable, without status migrainosus (6) Pruritus: Code(s): L29.9 - Pruritus, unspecified Category: Medical Plan Problem List - Anxiety - Pruritus - Gastroesophageal reflux disease - Hiatal hernia - Elevated liver enzymes - Hepatic steatosis - Abdominal discomfort - History of dyspnea - Preventative care: Colon cancer screening - Migraine REYNOSO stable Plan - The patient was advised to go to the lab today to complete the blood tests that were ordered in March. - It was suggested that it may be time to do a colonoscopy due to her new abdominal discomfort, despite the previous recommendation for a 10-year interval. however the exam is benign today - continue inhalers for asthma and other meds - The patient was reassured that the two chest biopsy sites are healing well and show no signs of infection; she can continue to cover them or leave them open to air. - Follow up for a physical exam is already scheduled for early November.
--- OUTSIDE RECORDS SUMMARY | 2025-07-25 15:31 | XMS_ITS | Patient Health Record ---
[facility] Address [address] [place] [address] Care Team Providers Care Cardiac Specialist Name Role Phone Yakov DIOP, [facility] Primary Care Provider Unavailabl e JuanVive Unavailable [phone] Reason For Referral No Information Medications Medication [...] week for 3- 4 weeks Not-Taking Nystatin-Triamcinolone 227164-4.1 UNIT/GM 1 application to affected area Externally [...] X ray : Foot, right 3V 04/23/2012 02943- Debride <25 sq cm 06/15/2017 85516- Biopsy of skin lesion 07/06/2017 Insurance Providers Payer Name Payer Address Payer Phone Subscriber Number Group Number Insured Name Patient Relationship to Insured Coverage Start Date Coverage End Date [facility] [address] [facility] [id number] Alexandra Fam Self - patient is the insured Medical (General) History Medical History History ICD Code anxiety depression chicken pox Headaches Joint implants/screws Surgical History Surgery Date(Month/Year) section tonsillectomy Patrick bunionectomy right foot 08/15/12 Miguel/Patrick Araujo w/isaiah 08/17/2016 Colonoscopy 05/25/17
== END 2025-07-25 14:31 | disposition home or self-care (01) ==
LOC: HO.HMCC 13:53
PROVIDERS: PCP Internal Medicine; Visit Provider Internal Medicine
DX: J45.42 Moderate persistent asthma with status asthmaticus (principal); F41.1 Generalized anxiety disorder; K21.9 Gastro-esophageal reflux disease without esophagitis; R79.89 Other specified abnormal findings of blood chemistry; G43.809 Other migraine, not intractable, without status migrainosus; L29.9 Pruritus, unspecified

== ENCOUNTER 2025-07-25 13:52 | Outpatient (REF) | payer OTHER, BC, SELFPAY ==
[2025-07-25 16:53] LABS: MANUAL DIFF FLAG NO
[2025-07-25 17:05] LABS: Hematocrit 40.1 % (37.0-47.0); Hemoglobin 14.0 g/dl (12.0-16.0); Imm Gran Abs Auto 0.02 X10*3/uL (0.00-0.03); Imm Gran Pct Auto 0.3 % (0.0-0.4); Lymphocytes Absolute Auto 2.1 X10*3/uL (1.2-4.9); Mean Corpuscular HGB Conc 34.9 g/dl (31.0-35.0); Mean Corpuscular Hemoglobin 29.6 pg (27.0-33.0); Mean Corpuscular Volume 84.8 fL (80.0-98.0); NRBC Abs Auto 0.000 X10*3/uL (0.0-0.012); NRBC Pct Auto 0.0 /100WBC (0.0-0.2); Platelet Count 309 X10*3/uL (160-400); Red Blood Count 4.73 X10*6/uL (4.20-5.50); White Blood Count 7.5 X10*3/uL (4.8-10.8)
[2025-07-25 18:14] LABS: Alanine Aminotransferase 20 U/L (0-31); Albumin Level 4.6 g/dL (3.5-5.0); Alkaline Phosphatase 111 U/L (39-117); Anion Gap 10 (12-20); Aspartate Amino Transferase 22 U/L (5-31); Blood Urea Nitrogen 20 mg/dL (9-16); Calcium 9.5 mg/dL (8.4-10.2); Carbon Dioxide 26 mmol/L (22-29); Chloride 108 mmol/L (96-108); Estimated Glomerular Filt Rate > 60; Potassium 3.7 mmol/L (3.3-5.1); Sodium 140 mmol/L (135-145); Total Protein 6.8 g/dL (6.5-8.0)
== END 2025-07-25 13:53 | disposition home or self-care (01) ==
LOC: HO.HMGCLDS 13:52
PROVIDERS: PCP Internal Medicine; Visit Provider Internal Medicine
DX: J30.81 Allergic rhinitis due to animal (cat) (dog) hair and dander (principal); J45.42 Moderate persistent asthma with status asthmaticus; F41.1 Generalized anxiety disorder; K21.9 Gastro-esophageal reflux disease without esophagitis; R79.89 Other specified abnormal findings of blood chemistry; G43.809 Other migraine, not intractable, without status migrainosus; L29.9 Pruritus, unspecified
CPT/HCPCS: 36415; 80053; 82248; 85025